=== PATIENT | female | born 1940 | race Two or more races ===

== ENCOUNTER 2020-09-24 11:26 | Inpatient (IN) | payer BC, OTHER ==
[~2020-09-24] VITALS: Ht 154.9 cm; Wt 108.1 kg
[2020-09-24] MEDS ORDERED: ACETAMINOPHEN 325 MG TAB PO ONE (11:45)
[2020-09-24] MEDS ORDERED: SODIUM CHLORIDE 0.9% 500 ML IVB ONE (11:45)
[2020-09-24] MEDS ORDERED: ACETAMINOPHEN 650 MG RECT SUPP PR ONE (12:00)
[2020-09-24 13:05] LABS: Urine Bacteria NONE SEEN /hpf (None Seen); Urine Blood Negative /uL (Negative); Urine Hyaline Cast MOD /lpf (0 - 2); Urine Specific Gravity 1.023 (1.001-1.035); Urine WBC 3 /hpf (0 - 5)
[2020-09-24 13:37] LABS: Basophils % (auto) 0.3 % (0.0-2.0); Eosinophils # (auto) 0 10 ^3/uL (0-0.8); Hemoglobin 10.9 g/dL (12.2-16.2); Lymphocytes # (auto) 1.8 10 ^3/uL (0.4-5.4); Nucleated Red Blood Cells % 0.1 %; Red Cell Distribution Width 15.3 % (11.8-14.3)
[2020-09-24 13:38] LABS: Basophils # (auto) 0 10 ^3/uL (0-0.2); Eosinophils % (auto) 0.1 % (0.0-7.0); Lymphocytes % (auto) 9.9 % (10.0-50.0); Mean Corpuscular Hemoglobin 28.8 pg (28.0-32.0); Mean Corpuscular Hgb Conc. 31.2 g/dL (32.0-36.0); Mean Corpuscular Volume 92.3 fL (80.0-100.0); Monocytes # (auto) 1.4 10 ^3/uL (0-1.3); Monocytes % (auto) 7.7 % (0.0-12.0); Red Blood Cells 3.79 10^6/uL (4.0-5.20); White Blood Cell 18.2 10^3/uL (4.4-10.8)
[2020-09-24 13:50] LABS: Albumin 2.8 g/dL (3.4-5.0); Anion Gap 7 (5-15); Calcium 10.7 mg/dL (8.5-10.1); Carbon Dioxide 20 mmol/L (21-32); Chloride 120 mmol/L (98-107); Glucose 99 mg/dL (74-106); Magnesium 1.9 mg/dL (1.6-2.6); Sodium 147 mmol/L (136-145)
[2020-09-24 13:54] LABS: Alanine Aminotransferase 17 U/L (13-56); Alkaline Phosphatase 59 U/L (45-117); Aspartate Aminotransferase 28 U/L (15-37); Bilirubin, Total 0.4 mg/dL (0.2-1.0); GFR African American 18 mL/min; GFR Non-African American 15 mL/min; Total Protein 7.9 g/dL (6.4-8.2)
[2020-09-24] MEDS ORDERED: AZITHROMYCIN 500MG/ 250ML 250 ML IV ONE (14:00)
[2020-09-24] MEDS ORDERED: methylPREDNISolone SOD SUCC 125 MG/2 ML VL IV ONE (14:00)
[2020-09-24 14:10] LABS: Blood Urea Nitrogen 86 mg/dL (7-18); Potassium 6.2 mmol/L (3.5-5.1)
[2020-09-24] MEDS ORDERED: SODIUM BICARBONATE 8.4 % INJ 50ML VIAL IV ONE (14:30)
[2020-09-24] MEDS ORDERED: CALCIUM GLUC 1,000mg/50ml-NS 50 ML IV ONE (14:30)
[2020-09-24] MEDS ORDERED: cloNIDine HCL 0.1 MG TAB PO ONE (16:00)
[2020-09-24] MEDS ORDERED: DEXTROSE (50%) 50ML SYRG IV ONE (16:45)
[2020-09-24] MEDS ORDERED: NITROGLYCERIN 0.4 MG SL TAB SL PRN (16:45)
[2020-09-24] MEDS ORDERED: SODIUM ZIRCONIUM CYCL 10 GM PAK PO ONE (16:45)
[2020-09-24] MEDS ORDERED: FUROSEMIDE 40 MG/4 ML VIAL IV ONE (16:45)
[2020-09-24] MEDS ORDERED: ALBUTEROL SULF 2.5 MG/0.5ML(0.5%) NEB SOLN NEB ONE (16:45)
[2020-09-24] MEDS ORDERED: InsuLIN REG 1unit/0.01ml Soln (100units/ml) IV ONE (16:45)
[2020-09-24] MEDS ORDERED: MORPHINE SULF INJ 2 MG/ML SYRINGE 1ML IV PRN (16:45)
[2020-09-24] MEDS ORDERED: CALCIUM CHL 100MG/ML 1,000 MG in D5W 5% 100 ML IV ONE (16:45)
[2020-09-24] MEDS ORDERED: LACTATED RINGER'S 1,000 ML IV ONE (17:45)
[2020-09-24] MEDS ORDERED: hydrALAZINE HCL 20 MG/ML VL IV PRN (17:45)
[2020-09-24] MEDS: SODIUM BICARBONATE 8.4% INJ 50ML SYRINGE IV ONE ×2 (18:00→18:50)
[2020-09-24] MEDS: PHENYLEPHRINE IV 250 ML IV SCH (21:45)
[2020-09-24] MEDS: SODIUM ZIRCONIUM CYCL 10 GM PAK PO SCH (22:33)
[2020-09-25] VITALS (59 sets, daily range): BP systolic 81–161; BP diastolic 40–91
[2020-09-25] MEDS ORDERED: DOCUSATE SOD 100 MG CAP PO PRN (01:15)
[2020-09-25] MEDS ORDERED: ONDANSETRON HCL 4 MG/2 ML VIAL IV PRN (01:15)
[2020-09-25] MEDS ORDERED: NITROGLYCERIN 0.4 MG SL TAB SL PRN (01:15)
[2020-09-25] MEDS ORDERED: MORPHINE SULF INJ 2 MG/ML SYRINGE 1ML IV PRN (01:15)
[2020-09-25] MEDS ORDERED: ALUM & MAG HYDROX-SIMETH LIQ(MAALOX) 30 ML PO PRN (01:15)
[2020-09-25] MEDS ORDERED: HYDROcodone-ACET 5/325MG TAB PO PRN (01:15)
[2020-09-25] MEDS ORDERED: SODIUM CHLORIDE 0.9% 1,000 ML IV SCH (01:30)
[2020-09-25] MEDS ORDERED: methylPREDNISolone SOD SUCC 125 MG/2 ML VL IV ONE (01:30)
[2020-09-25] MEDS ORDERED: ZOLEDRONIC ACID 4 MG in SODIUM CHL 0.9% 100 ML IV ONE (01:30)
[2020-09-25] MEDS ORDERED: CALCITONIN 400unit/2ml Vial (200unit/ml) IM ONE (01:30)
[2020-09-25] MEDS ORDERED: DEXTROSE (50%) 50ML SYRG IV PRN (01:30)
[2020-09-25 01:50] LABS: Hematocrit 33.7 % (36.0-46.0); Hemoglobin 10.7 g/dL (12.2-16.2); Mean Corpuscular Hemoglobin 28.5 pg (28.0-32.0); Mean Corpuscular Hgb Conc. 31.7 g/dL (32.0-36.0); Mean Corpuscular Volume 89.7 fL (80.0-100.0); Red Blood Cells 3.76 10^6/uL (4.0-5.20); Red Cell Distribution Width 15.1 % (11.8-14.3); White Blood Cell 20.3 10^3/uL (4.4-10.8)
[2020-09-25 01:52] LABS: Eosinophils % (manual) 0 (0-7); Monocytes % (manual) 0 (0-12)
[2020-09-25 01:53] LABS: Basophils % (manual) 0 (0.0-2.0); Blast Cells 0; Metamyelocytes % 0; Myelocytes % 0; Promyelocytes % 0; Reactive Lymphocytes 0
[2020-09-25 02:07] LABS: Albumin 2.4 g/dL (3.4-5.0); BUN/Creatinine Ratio 27.1; Calcium 10.3 mg/dL (8.5-10.1)
[2020-09-25 02:09] LABS: Potassium 5.6 mmol/L (3.5-5.1)
[2020-09-25 02:10] LABS: Bilirubin, Total 0.4 mg/dL (0.2-1.0); Total Protein 7.4 g/dL (6.4-8.2)
[2020-09-25] MEDS: InsuLIN REG 1unit/0.01ml Soln (100units/ml) SC SCH ×3 (02:29→17:51)
[2020-09-25 03:00] LABS: Band Neutrophils % (manual) 3; Lymphocytes % (manual) 5 (10.0-50.0)
[2020-09-25] MEDS ORDERED: SODIUM ZIRCONIUM CYCL 10 GM PAK PO ONE (03:30)
[2020-09-25] MEDS ORDERED: CALCIUM GLUC 1,000mg/50ml-NS 50 ML IV ONE (03:30)
[2020-09-25] MEDS ORDERED: InsuLIN REG 1unit/0.01ml Soln (100units/ml) IV ONE (03:30)
[2020-09-25] MEDS ORDERED: SODIUM BICARBONATE 8.4% INJ 50ML SYRINGE IV ONE (03:30)
[2020-09-25 04:31] LABS: BUN/Creatinine Ratio 29.6; Calcium 10.4 mg/dL (8.5-10.1); Magnesium 1.6 mg/dL (1.6-2.6); Phosphorus 3.5 mg/dL (2.5-4.90); Potassium 5.4 mmol/L (3.5-5.1)
[2020-09-25] MEDS: FUROSEMIDE 20 MG/2 ML VIAL IV SCH ×2 (04:36→18:03)
[2020-09-25] MEDS: PHENYLEPHRINE IV 250 ML IV SCH ×2 (04:36→14:10)
[2020-09-25] MEDS: SODIUM ZIRCONIUM CYCL 10 GM PAK PO SCH ×3 (04:36→22:11)
[2020-09-25 04:44] LABS: Alcohol, Urine < 3.0 mg/dL (0-10); Amphetamine Screen, Urine NEGATIVE (NEGATIVE); Barbiturate Scree,Urine NEGATIVE (NEGATIVE); Benzodiazephine Screen, Urine NEGATIVE (NEGATIVE); Cannabinoid Screen, Urine NEGATIVE (NEGATIVE); Cocaine Screen, Urine NEGATIVE (NEGATIVE); Phencyclidine Screen, Urine NEGATIVE (NEGATIVE)
[2020-09-25 04:52] LABS: Opiate Scree,Urine POSITIVE (NEGATIVE)
[2020-09-25] MEDS ORDERED: SODIUM CHLOR 0.9% PF (SALINE LOCK) 10ML VIAL/SYR IV SCH (06:00)
[2020-09-25] MEDS ORDERED: methylPREDNISolone SOD SUCC 40 MG/ML VL IV SCH (06:00)
[2020-09-25] MEDS: ACCU-CHEK COMFORT CURVE STRIP VI SCH ×4 (06:36→22:11)
[2020-09-25] MEDS: INSULIN LANTUS (GLARGINE) 1 /0.01ml (100units/ml) SC SCH ×2 (06:37→22:19)
[2020-09-25] MEDS: cefTRIAXone 1GM/50ML D5W 50 ML IV SCH (10:09)
[2020-09-25] MEDS: ENOXAPARIN SOD 30 MG/0.3 ML SYRINGE SC SCH (10:10)
[2020-09-25] MEDS: AZITHROMYCIN 500MG/ 250ML 250 ML IV SCH (11:59)
[2020-09-25] MEDS ORDERED: HYDR-4798 PO (15:03)
[2020-09-25] MEDS ORDERED: METF-929 PO (15:03)
[2020-09-25] MEDS ORDERED: CHOL500035 PO (15:03)
[2020-09-25] MEDS ORDERED: SIMV-8 PO (15:03)
[2020-09-25] MEDS ORDERED: HYDR25TA4 PO (15:03)
[2020-09-25] MEDS ORDERED: CLON0.1T PO (15:03)
[2020-09-25] MEDS ORDERED: TELM80TA PO (15:03)
[2020-09-25] MEDS ORDERED: ASPI-543 PO (15:03)
[2020-09-25] MEDS ORDERED: BACL10TA PO (15:03)
[2020-09-25] MEDS ORDERED: POTA10TA51 PO (15:03)
[2020-09-25] MEDS ORDERED: ROPI12TA2 PO (15:03)
[2020-09-25] MEDS ORDERED: LISI20TA28 PO (15:03)
[2020-09-25] MEDS ORDERED: OMEP-434 PO (15:03)
[2020-09-25] MEDS ORDERED: VALS160T43 PO (15:03)
[2020-09-25] MEDS ORDERED: GLIP10TA9 PO (15:03)
[2020-09-25] MEDS: SODIUM CHLORIDE 0.9% 1,000 ML IV SCH (15:34)
[2020-09-26] MEDS: SODIUM CHLORIDE 0.9% 1,000 ML IV SCH (01:15)
[2020-09-26 05:00] VITALS: BP 119/69
[2020-09-26 06:41] LABS: Basophils # (auto) 0 10 ^3/uL (0-0.2); Basophils % (auto) 0.1 % (0.0-2.0); Eosinophils # (auto) 0 10 ^3/uL (0-0.8); Hematocrit 32.2 % (36.0-46.0); Hemoglobin 10.8 g/dL (12.2-16.2); Lymphocytes # (auto) 0.8 10 ^3/uL (0.4-5.4); Lymphocytes % (auto) 4.3 % (10.0-50.0); Mean Corpuscular Hemoglobin 29.4 pg (28.0-32.0); Mean Corpuscular Hgb Conc. 33.4 g/dL (32.0-36.0); Monocytes # (auto) 0.6 10 ^3/uL (0-1.3); Monocytes % (auto) 3.2 % (0.0-12.0); Neutrophils # (auto) 17.6 10 ^3/uL (1.6-8.6); Neutrophils % (auto) 92.4 % (37.0-80.0); Red Blood Cells 3.66 10^6/uL (4.0-5.20); Red Cell Distribution Width 14.6 % (11.8-14.3)
[2020-09-26] MEDS: ACCU-CHEK COMFORT CURVE STRIP VI SCH ×4 (06:42→21:14)
[2020-09-26] MEDS: FUROSEMIDE 20 MG/2 ML VIAL IV SCH ×2 (06:42→17:44)
[2020-09-26] MEDS: SODIUM ZIRCONIUM CYCL 10 GM PAK PO SCH ×2 (06:42→13:50)
[2020-09-26] MEDS: InsuLIN REG 1unit/0.01ml Soln (100units/ml) SC SCH ×3 (06:44→16:59)
[2020-09-26] MEDS: INSULIN LANTUS (GLARGINE) 1 /0.01ml (100units/ml) SC SCH ×2 (06:44→21:13)
[2020-09-26 06:51] LABS: Potassium 4.4 mmol/L (3.5-5.1)
[2020-09-26 07:01] LABS: Albumin 2.3 g/dL (3.4-5.0); BUN/Creatinine Ratio 36.9; Bilirubin, Total 0.5 mg/dL (0.2-1.0); Calcium 10.3 mg/dL (8.5-10.1)
[2020-09-26 09:00] VITALS: BP 123/69
[2020-09-26] MEDS: cefTRIAXone 1GM/50ML D5W 50 ML IV SCH (09:03)
[2020-09-26] MEDS: SOD CHL 0.45% 1,000 ML IV SCH ×2 (09:11→18:47)
[2020-09-26] MEDS ORDERED: ZOLEDRONIC ACID 4 MG in SODIUM CHL 0.9% 100 ML IV ONE (09:15)
[2020-09-26] MEDS: AZITHROMYCIN 500MG/ 250ML 250 ML IV SCH (10:06)
[2020-09-26] MEDS: ENOXAPARIN SOD 30 MG/0.3 ML SYRINGE SC SCH (10:06)
[2020-09-26 13:00] VITALS: BP 134/76
[2020-09-26 22:00] VITALS: BP 144/80
[2020-09-27] MEDS: SOD CHL 0.45% 1,000 ML IV SCH ×3 (04:57→20:15)
[2020-09-27 05:00] VITALS: BP 135/78
[2020-09-27 05:42] LABS: Basophils # (auto) 0.1 10 ^3/uL (0-0.2); Basophils % (auto) 0.6 % (0.0-2.0); Eosinophils # (auto) 0 10 ^3/uL (0-0.8); Eosinophils % (auto) 0.2 % (0.0-7.0); Hematocrit 32.7 % (36.0-46.0); Hemoglobin 10.9 g/dL (12.2-16.2); Lymphocytes # (auto) 1.2 10 ^3/uL (0.4-5.4); Lymphocytes % (auto) 8.8 % (10.0-50.0); Mean Corpuscular Hemoglobin 28.8 pg (28.0-32.0); Mean Corpuscular Hgb Conc. 33.3 g/dL (32.0-36.0); Mean Corpuscular Volume 86.6 fL (80.0-100.0); Monocytes # (auto) 0.7 10 ^3/uL (0-1.3); Monocytes % (auto) 5.3 % (0.0-12.0); Neutrophils # (auto) 11.6 10 ^3/uL (1.6-8.6); Neutrophils % (auto) 85.1 % (37.0-80.0); Nucleated Red Blood Cells % 0.1 %; Red Blood Cells 3.78 10^6/uL (4.0-5.20); Red Cell Distribution Width 14.4 % (11.8-14.3); White Blood Cell 13.7 10^3/uL (4.4-10.8)
[2020-09-27 05:53] LABS: Albumin 2.4 g/dL (3.4-5.0); Calcium 9.8 mg/dL (8.5-10.1); Potassium 3.4 mmol/L (3.5-5.1)
[2020-09-27] MEDS: ACCU-CHEK COMFORT CURVE STRIP VI SCH ×4 (06:01→21:03)
[2020-09-27] MEDS: FUROSEMIDE 20 MG/2 ML VIAL IV SCH (06:01)
[2020-09-27] MEDS: INSULIN LANTUS (GLARGINE) 1 /0.01ml (100units/ml) SC SCH ×2 (06:03→21:03)
[2020-09-27] MEDS: InsuLIN REG 1unit/0.01ml Soln (100units/ml) SC SCH ×3 (06:03→17:00)
[2020-09-27 06:05] LABS: Bilirubin, Total 0.4 mg/dL (0.2-1.0); Total Protein 6.8 g/dL (6.4-8.2)
[2020-09-27] MEDS: cefTRIAXone 1GM/50ML D5W 50 ML IV SCH (08:59)
[2020-09-27 09:00] VITALS: BP 109/76
[2020-09-27] MEDS: MORPHINE SULF INJ 2 MG/ML SYRINGE 1ML IV PRN (09:28)
[2020-09-27] MEDS: AZITHROMYCIN 500MG/ 250ML 250 ML IV SCH (09:44)
[2020-09-27] MEDS: ENOXAPARIN SOD 30 MG/0.3 ML SYRINGE SC SCH (09:44)
[2020-09-27] MEDS ORDERED: POTASSIUM CHL 20MEQ/100ML 100 ML IV ONE (12:15)
[2020-09-27 13:00] VITALS: BP 139/97
[2020-09-27 17:00] VITALS: BP 140/93
[2020-09-27] MEDS: ACETAMINOPHEN 325 MG TAB PO PRN (17:12)
[2020-09-27] MEDS ORDERED: LATA0.0019 EACHEYE (17:59)
[2020-09-27] MEDS ORDERED: TIMO0.5S66 EACHEYE (17:59)
[2020-09-27] MEDS ORDERED: LORazepam 2MG/ML-1ML VIAL IV PRN (20:15)
[2020-09-27 20:45] LABS: Folate (Folic Acid) 4.55 ng/mL (5.38-24)
[2020-09-27] MEDS: TIMOLOL MAL 0.5% OPTH(EYE) SOL 5ML EACHEYE SCH (21:03)
[2020-09-27] MEDS: LATANOPROST 0.005 % OPTH(EYE) SOL 2.5ML EACHEYE SCH (21:03)
[2020-09-27 22:00] VITALS: BP 136/89
[2020-09-28] MEDS: SOD CHL 0.45% 1,000 ML IV SCH (04:15)
[2020-09-28 05:00] VITALS: BP 126/77
[2020-09-28] MEDS: InsuLIN REG 1unit/0.01ml Soln (100units/ml) SC SCH ×3 (05:10→17:00)
[2020-09-28] MEDS: ACCU-CHEK COMFORT CURVE STRIP VI SCH ×4 (05:11→21:07)
[2020-09-28] MEDS: INSULIN LANTUS (GLARGINE) 1 /0.01ml (100units/ml) SC SCH ×2 (05:41→21:07)
[2020-09-28 06:54] LABS: Basophils # (auto) 0.1 10 ^3/uL (0-0.2); Basophils % (auto) 0.6 % (0.0-2.0); Eosinophils # (auto) 0.1 10 ^3/uL (0-0.8); Eosinophils % (auto) 0.9 % (0.0-7.0); Hematocrit 34.6 % (36.0-46.0); Hemoglobin 11.4 g/dL (12.2-16.2); Lymphocytes # (auto) 1.5 10 ^3/uL (0.4-5.4); Lymphocytes % (auto) 11.6 % (10.0-50.0); Mean Corpuscular Hemoglobin 28.2 pg (28.0-32.0); Mean Corpuscular Volume 85.3 fL (80.0-100.0); Monocytes # (auto) 0.7 10 ^3/uL (0-1.3); Monocytes % (auto) 5.2 % (0.0-12.0); Neutrophils # (auto) 10.8 10 ^3/uL (1.6-8.6); Neutrophils % (auto) 81.7 % (37.0-80.0); Red Blood Cells 4.05 10^6/uL (4.0-5.20); Red Cell Distribution Width 14.1 % (11.8-14.3); White Blood Cell 13.2 10^3/uL (4.4-10.8)
[2020-09-28 07:07] LABS: INR 1.15 (0.9-1.15); Partial Thromboplastin Time 25.1 sec (23.0-31.2)
[2020-09-28 07:20] LABS: Albumin 2.3 g/dL (3.4-5.0); Calcium 9.1 mg/dL (8.5-10.1)
[2020-09-28 07:26] LABS: BUN/Creatinine Ratio 28.6; Bilirubin, Total 0.5 mg/dL (0.2-1.0)
[2020-09-28] MEDS: TIMOLOL MAL 0.5% OPTH(EYE) SOL 5ML EACHEYE SCH ×2 (08:42→21:07)
[2020-09-28] MEDS: cefTRIAXone 1GM/50ML D5W 50 ML IV SCH (08:42)
[2020-09-28] MEDS: ENOXAPARIN SOD 30 MG/0.3 ML SYRINGE SC SCH (08:43)
[2020-09-28 09:00] VITALS: BP 112/75
[2020-09-28] MEDS: AZITHROMYCIN 500MG/ 250ML 250 ML IV SCH (09:26)
[2020-09-28] MEDS: MORPHINE SULF INJ 2 MG/ML SYRINGE 1ML IV PRN (10:10)
[2020-09-28] MEDS: POTASSIUM CHL 20MEQ/100ML 100 ML IV SCH ×2 (11:45→12:45)
[2020-09-28] MEDS: MAGNESIUM SULFATE 1GM/100ML 100 ML IV SCH ×3 (12:45→17:25)
[2020-09-28 13:00] VITALS: BP 129/70
[2020-09-28 17:00] VITALS: BP 96/54
[2020-09-28] MEDS ORDERED: MAGNESIUM SULFATE 1GM/100ML 100 ML IV ONE (17:29)
[2020-09-28] MEDS: POTASSIUM CHLORIDE 20 MEQ in SOD CHL 0.45% 1,000 ML IV SCH ×2 (17:36→19:50)
[2020-09-28] MEDS: LATANOPROST 0.005 % OPTH(EYE) SOL 2.5ML EACHEYE SCH (21:07)
[2020-09-28 22:00] VITALS: BP 103/61
[2020-09-29] MEDS: POTASSIUM CHLORIDE 20 MEQ in SOD CHL 0.45% 1,000 ML IV SCH ×2 (03:52→12:00)
[2020-09-29 05:00] VITALS: BP 126/65
[2020-09-29] MEDS: INSULIN LANTUS (GLARGINE) 1 /0.01ml (100units/ml) SC SCH ×2 (05:49→23:01)
[2020-09-29] MEDS: InsuLIN REG 1unit/0.01ml Soln (100units/ml) SC SCH ×3 (05:50→16:58)
[2020-09-29] MEDS: ACCU-CHEK COMFORT CURVE STRIP VI SCH ×4 (05:50→22:58)
[2020-09-29 05:55] LABS: Basophils # (auto) 0 10 ^3/uL (0-0.2); Basophils % (auto) 0.1 % (0.0-2.0); Eosinophils # (auto) 0.2 10 ^3/uL (0-0.8); Eosinophils % (auto) 1.8 % (0.0-7.0); Hematocrit 34.1 % (36.0-46.0); Hemoglobin 11.2 g/dL (12.2-16.2); Lymphocytes # (auto) 1.3 10 ^3/uL (0.4-5.4); Lymphocytes % (auto) 10.4 % (10.0-50.0); Mean Corpuscular Hemoglobin 28.8 pg (28.0-32.0); Mean Corpuscular Volume 87.2 fL (80.0-100.0); Monocytes # (auto) 0.8 10 ^3/uL (0-1.3); Monocytes % (auto) 6.8 % (0.0-12.0); Neutrophils # (auto) 10.2 10 ^3/uL (1.6-8.6); Neutrophils % (auto) 80.9 % (37.0-80.0); Red Blood Cells 3.91 10^6/uL (4.0-5.20); Red Cell Distribution Width 14.5 % (11.8-14.3); White Blood Cell 12.6 10^3/uL (4.4-10.8)
[2020-09-29 06:40] LABS: Potassium 3.5 mmol/L (3.5-5.1)
[2020-09-29 06:51] LABS: Bilirubin, Total 0.4 mg/dL (0.2-1.0); Calcium 8.2 mg/dL (8.5-10.1); Total Protein 6.3 g/dL (6.4-8.2)
[2020-09-29 08:42] VITALS: BP 129/70
[2020-09-29] MEDS: ENOXAPARIN SOD 30 MG/0.3 ML SYRINGE SC SCH (10:00)
[2020-09-29] MEDS: FOLIC ACID 1 MG in D5W 5% 50 ML INJ SCH ×2 (10:00→16:00)
[2020-09-29] MEDS: ASPirin 81 mg TAB PO SCH (10:00)
[2020-09-29] MEDS: AZITHROMYCIN 500MG/ 250ML 250 ML IV SCH (10:51)
[2020-09-29] MEDS: cefTRIAXone 1GM/50ML D5W 50 ML IV SCH (10:51)
[2020-09-29] MEDS: TIMOLOL MAL 0.5% OPTH(EYE) SOL 5ML EACHEYE SCH ×2 (10:52→22:59)
[2020-09-29 13:00] VITALS: BP 110/64
[2020-09-29] MEDS ORDERED: IOHEXOL 300 MG/ML 100ML BOTTLE IJ ONE (13:59)
[2020-09-29 17:24] VITALS: BP 116/76
[2020-09-29 20:37] LABS: Basophils # (auto) 0 10 ^3/uL (0-0.2); Basophils % (auto) 0.3 % (0.0-2.0); Eosinophils # (auto) 0.3 10 ^3/uL (0-0.8); Eosinophils % (auto) 2.1 % (0.0-7.0); Hematocrit 33.2 % (36.0-46.0); Hemoglobin 10.7 g/dL (12.2-16.2); Lymphocytes # (auto) 1.2 10 ^3/uL (0.4-5.4); Lymphocytes % (auto) 9.2 % (10.0-50.0); Mean Corpuscular Hemoglobin 27.7 pg (28.0-32.0); Mean Corpuscular Hgb Conc. 32.2 g/dL (32.0-36.0); Monocytes # (auto) 0.8 10 ^3/uL (0-1.3); Monocytes % (auto) 5.9 % (0.0-12.0); Neutrophils # (auto) 10.8 10 ^3/uL (1.6-8.6); Neutrophils % (auto) 82.5 % (37.0-80.0); Nucleated Red Blood Cells % 0.1 %; Red Blood Cells 3.86 10^6/uL (4.0-5.20); Red Cell Distribution Width 14.1 % (11.8-14.3); White Blood Cell 13.1 10^3/uL (4.4-10.8)
[2020-09-29 22:00] VITALS: BP 122/58
[2020-09-29] MEDS: LATANOPROST 0.005 % OPTH(EYE) SOL 2.5ML EACHEYE SCH (22:59)
[2020-09-29] MEDS: HEPARIN DRIP/D5W 100UNITS/ML 250 ML IV SCH (23:05)
[2020-09-30] MEDS: POTASSIUM CHLORIDE 20 MEQ in SOD CHL 0.45% 1,000 ML IV SCH ×2 (00:32→07:42)
[2020-09-30 00:59] LABS: INR 1.15 (0.9-1.15); Partial Thromboplastin Time 32.5 sec (23.0-31.2)
[2020-09-30] MEDS ORDERED: HEPARIN SODIUM (PORCINE) 5000 UNITS/ML 1ML VIAL IV ONE (02:45)
[2020-09-30 05:07] VITALS: BP 143/70
[2020-09-30] MEDS: InsuLIN REG 1unit/0.01ml Soln (100units/ml) SC SCH ×3 (06:21→17:00)
[2020-09-30] MEDS: ACCU-CHEK COMFORT CURVE STRIP VI SCH ×4 (06:21→22:36)
[2020-09-30] MEDS: INSULIN LANTUS (GLARGINE) 1 /0.01ml (100units/ml) SC SCH ×2 (06:21→22:00)
[2020-09-30 06:35] LABS: Basophils # (auto) 0.1 10 ^3/uL (0-0.2); Basophils % (auto) 0.7 % (0.0-2.0); Eosinophils # (auto) 0.4 10 ^3/uL (0-0.8); Eosinophils % (auto) 2.9 % (0.0-7.0); Hematocrit 30.5 % (36.0-46.0); Hemoglobin 10.2 g/dL (12.2-16.2); Lymphocytes # (auto) 1.4 10 ^3/uL (0.4-5.4); Lymphocytes % (auto) 11.2 % (10.0-50.0); Mean Corpuscular Hemoglobin 28.6 pg (28.0-32.0); Mean Corpuscular Hgb Conc. 33.5 g/dL (32.0-36.0); Mean Corpuscular Volume 85.6 fL (80.0-100.0); Monocytes # (auto) 0.8 10 ^3/uL (0-1.3); Monocytes % (auto) 6.7 % (0.0-12.0); Neutrophils # (auto) 9.6 10 ^3/uL (1.6-8.6); Neutrophils % (auto) 78.5 % (37.0-80.0); Nucleated Red Blood Cells % 0.1 %; Red Blood Cells 3.57 10^6/uL (4.0-5.20); Red Cell Distribution Width 13.8 % (11.8-14.3); White Blood Cell 12.2 10^3/uL (4.4-10.8)
[2020-09-30 07:11] LABS: INR 1.22 (0.9-1.15)
[2020-09-30 07:48] LABS: Partial Thromboplastin Time > 139.0 sec (23.0-31.2)
[2020-09-30 09:00] VITALS: BP 157/88
[2020-09-30] MEDS: cefTRIAXone 1GM/50ML D5W 50 ML IV SCH (09:00)
[2020-09-30] MEDS: TIMOLOL MAL 0.5% OPTH(EYE) SOL 5ML EACHEYE SCH ×2 (10:00→22:52)
[2020-09-30] MEDS: ASPirin 81 mg TAB PO SCH (10:00)
[2020-09-30] MEDS: ENOXAPARIN SOD 30 MG/0.3 ML SYRINGE SC SCH (10:00)
[2020-09-30] MEDS: AZITHROMYCIN 500MG/ 250ML 250 ML IV SCH (10:00)
[2020-09-30] MEDS: HEPARIN DRIP/D5W 100UNITS/ML 250 ML IV SCH (10:17)
[2020-09-30 13:00] VITALS: BP 146/72
[2020-09-30] MEDS: SOD CHL 0.45% WITH 20MEQ KCL 1,000 ML IV SCH ×2 (15:45→22:52)
[2020-09-30 16:35] VITALS: BP 132/58
[2020-09-30 18:18] LABS: INR 1.24 (0.9-1.15)
[2020-09-30 18:20] LABS: Partial Thromboplastin Time > 139.0 sec (23.0-31.2)
[2020-09-30] MEDS ORDERED: HEPARIN DRIP/D5W 100UNITS/ML 250 ML IV SCH ×2 (19:20→21:00)
[2020-09-30 22:00] VITALS: BP 113/57
[2020-09-30] MEDS: LATANOPROST 0.005 % OPTH(EYE) SOL 2.5ML EACHEYE SCH (22:00)
[2020-10-01 02:38] LABS: Albumin 2.1 g/dL (3.4-5.0); BUN/Creatinine Ratio 10.8; Calcium 8.1 mg/dL (8.5-10.1); Potassium 3.2 mmol/L (3.5-5.1)
[2020-10-01 03:01] LABS: Bilirubin, Total 0.2 mg/dL (0.2-1.0); Phosphorus 1.5 mg/dL (2.5-4.90); Total Protein 6.3 g/dL (6.4-8.2)
[2020-10-01 03:04] LABS: INR 1.24 (0.9-1.15)
[2020-10-01 03:07] LABS: Partial Thromboplastin Time 127.8 sec (23.0-31.2)
[2020-10-01 05:00] VITALS: BP 144/77
[2020-10-01] MEDS: ACCU-CHEK COMFORT CURVE STRIP VI SCH ×4 (06:40→22:03)
[2020-10-01] MEDS: INSULIN LANTUS (GLARGINE) 1 /0.01ml (100units/ml) SC SCH ×2 (06:40→22:03)
[2020-10-01] MEDS: InsuLIN REG 1unit/0.01ml Soln (100units/ml) SC SCH ×3 (06:41→16:50)
[2020-10-01 09:00] VITALS: BP 112/62
[2020-10-01] MEDS: TIMOLOL MAL 0.5% OPTH(EYE) SOL 5ML EACHEYE SCH ×2 (10:00→22:03)
[2020-10-01] MEDS: ENOXAPARIN SOD 30 MG/0.3 ML SYRINGE SC SCH (10:00)
[2020-10-01] MEDS: FOLIC ACID 1 MG in D5W 5% 50 ML INJ SCH (10:00)
[2020-10-01] MEDS: ASPirin 81 mg TAB PO SCH (10:00)
[2020-10-01] MEDS ORDERED: LIDOCAINE VISCOUS 2% 15ML UD PO ONE ×2 (11:00→11:35)
[2020-10-01] MEDS ORDERED: fentaNYL CITRATE 100 MCG/2 ML VL IV ONE (11:00)
[2020-10-01] MEDS ORDERED: MIDAZOLAM HCL 5 MG/ML-1ML VIAL IV ONE (11:00)
[2020-10-01] MEDS ORDERED: LIDOCAINE VISCOUS 2% 15ML UD ONE ×2 (11:01→11:36)
[2020-10-01] MEDS ORDERED: MIDAZOLAM HCL 2MG/2ML 2ml VIAL (1mg/ml) ONE ×2 (11:01→12:38)
[2020-10-01] MEDS ORDERED: fentaNYL CITRATE 100 MCG/2 ML VL ONE ×2 (11:01→12:38)
[2020-10-01] MEDS ORDERED: POTASSIUM PHOSPHATE 44 MEQ in D5W 5% 250 ML IV ONE (11:30)
[2020-10-01] MEDS ORDERED: POTASSIUM CHLORIDE 10 MEQ in SOD CHL 0.45% WITH 20MEQ KCL 1,000 ML IV SCH (11:30)
[2020-10-01] MEDS ORDERED: ceFAZolin 1GM/50ML 100 ML IV ONE (12:35)
[2020-10-01] MEDS ORDERED: ONDANSETRON HCL 4 MG/2 ML VIAL ONE (12:38)
[2020-10-01] MEDS ORDERED: SODIUM CHLORIDE LOCK 10 ML ONE (12:38)
[2020-10-01] MEDS ORDERED: PROPOFOL 10 MG/ML 20 ML IV ONE (12:38)
[2020-10-01] MEDS ORDERED: ceFAZolin 1GM VL ONE (12:42)
[2020-10-01] MEDS ORDERED: ROPIVACAINE 0.5% (5MG/ML) 20ML AMPULE IJ ONE ×2 (12:43→13:41)
[2020-10-01] MEDS ORDERED: LIDOCAINE 2% (LOCAL ANESTH.) PF 5ml SDV ONE (14:11)
[2020-10-01] MEDS ORDERED: MORPHINE SULFATE 4 MG/ML SYR/VIAL IV PRN (14:45)
[2020-10-01] MEDS ORDERED: HYDROmorphone HCL 2 MG/ML VL IV PRN (14:45)
[2020-10-01] MEDS ORDERED: ACCU-CHEK COMFORT CURVE STRIP VI ONE (14:45)
[2020-10-01] MEDS ORDERED: METOCLOPRAMIDE HCL 5MG/ml INJ 2ml VIAL IV PRN (14:45)
[2020-10-01] MEDS: SOD CHL 0.45% IV SCH (16:45)
[2020-10-01] MEDS: POTASSIUM CHLORIDE IV SCH (16:45)
[2020-10-01 17:00] VITALS: BP 134/63
[2020-10-01 22:00] VITALS: BP 123/72
[2020-10-01] MEDS: LATANOPROST 0.005 % OPTH(EYE) SOL 2.5ML EACHEYE SCH (22:03)
[2020-10-01 22:23] LABS: INR 1.21 (0.9-1.15); Partial Thromboplastin Time 26.2 sec (23.0-31.2)
[2020-10-01] MEDS ORDERED: HEPARIN DRIP/D5W 100UNITS/ML 250 ML IV ONE (22:42)
[2020-10-01] MEDS: HEPARIN DRIP/D5W 100UNITS/ML 250 ML IV SCH (23:30)
[2020-10-02] MEDS: SOD CHL 0.45% IV SCH ×2 (01:35→11:03)
[2020-10-02] MEDS: POTASSIUM CHLORIDE IV SCH ×2 (01:35→11:03)
[2020-10-02 05:00] VITALS: BP 150/80
[2020-10-02 06:07] LABS: INR 1.21 (0.9-1.15); Partial Thromboplastin Time 51.7 sec (23.0-31.2)
[2020-10-02] MEDS: InsuLIN REG 1unit/0.01ml Soln (100units/ml) SC SCH ×3 (06:39→17:00)
[2020-10-02] MEDS: INSULIN LANTUS (GLARGINE) 1 /0.01ml (100units/ml) SC SCH ×2 (06:39→22:00)
[2020-10-02] MEDS: ACCU-CHEK COMFORT CURVE STRIP VI SCH ×4 (06:39→22:00)
[2020-10-02 09:00] VITALS: BP 140/66
[2020-10-02] MEDS: ASPirin 81 mg TAB PO SCH (10:00)
[2020-10-02] MEDS: ENOXAPARIN SOD 30 MG/0.3 ML SYRINGE SC SCH (10:00)
[2020-10-02] MEDS: FOLIC ACID 1 MG in D5W 5% 50 ML INJ SCH (10:00)
[2020-10-02] MEDS: TIMOLOL MAL 0.5% OPTH(EYE) SOL 5ML EACHEYE SCH ×2 (10:00→22:33)
[2020-10-02 13:00] VITALS: BP 118/61
[2020-10-02 13:41] LABS: Hematocrit 29.8 % (36.0-46.0); Hemoglobin 9.8 g/dL (12.2-16.2)
[2020-10-02] MEDS ORDERED: SIMETHICONE 80 MG CHEWABLE TABLET PO PRN (13:45)
[2020-10-02 17:00] VITALS: BP 155/81
[2020-10-02] MEDS: ACETAMINOPHEN 325 MG TAB PO PRN (17:28)
[2020-10-02] MEDS: HEPARIN DRIP/D5W 100UNITS/ML 250 ML IV SCH (19:22)
[2020-10-02 22:33] VITALS: BP 150/73
[2020-10-02] MEDS: LATANOPROST 0.005 % OPTH(EYE) SOL 2.5ML EACHEYE SCH (22:33)
[2020-10-03] MEDS: POTASSIUM CHLORIDE IV SCH ×2 (01:20→07:21)
[2020-10-03] MEDS: SOD CHL 0.45% IV SCH ×2 (01:20→07:21)
[2020-10-03 02:51] LABS: INR 1.2 (0.9-1.15); Partial Thromboplastin Time 64.6 sec (23.0-31.2)
[2020-10-03 05:15] VITALS: BP 158/82
[2020-10-03] MEDS: InsuLIN REG 1unit/0.01ml Soln (100units/ml) SC SCH ×3 (06:02→17:00)
[2020-10-03] MEDS: ACCU-CHEK COMFORT CURVE STRIP VI SCH ×4 (06:03→21:41)
[2020-10-03] MEDS: INSULIN LANTUS (GLARGINE) 1 /0.01ml (100units/ml) SC SCH ×2 (06:03→21:43)
[2020-10-03 09:00] VITALS: BP 170/86
[2020-10-03 09:27] LABS: Hematocrit 30.4 % (36.0-46.0); Hemoglobin 9.9 g/dL (12.2-16.2); Mean Corpuscular Hgb Conc. 32.6 g/dL (32.0-36.0); Mean Corpuscular Volume 85.9 fL (80.0-100.0); Red Blood Cells 3.53 10^6/uL (4.0-5.20); Red Cell Distribution Width 14.2 % (11.8-14.3); White Blood Cell 11.6 10^3/uL (4.4-10.8)
[2020-10-03 09:29] LABS: Basophils % (manual) 0 (0.0-2.0); Blast Cells 0; Metamyelocytes % 0; Myelocytes % 0; Promyelocytes % 0; Reactive Lymphocytes 0
[2020-10-03 09:30] LABS: Albumin 2.3 g/dL (3.4-5.0); BUN/Creatinine Ratio 10.5; Calcium 8.1 mg/dL (8.5-10.1)
[2020-10-03 09:31] LABS: INR 1.2 (0.9-1.15); Partial Thromboplastin Time 63.8 sec (23.0-31.2)
[2020-10-03 09:32] LABS: Bilirubin, Total 0.3 mg/dL (0.2-1.0); Phosphorus 1.3 mg/dL (2.5-4.90); Total Protein 6.4 g/dL (6.4-8.2)
[2020-10-03] MEDS ORDERED: APIXABAN 5 MG TAB PO SCH ×2 (10:00→10:06)
[2020-10-03] MEDS: TIMOLOL MAL 0.5% OPTH(EYE) SOL 5ML EACHEYE SCH ×2 (10:13→21:44)
[2020-10-03] MEDS: PANTOPRAZOLE 40 MG/10 ML VIAL INJ IV SCH (10:14)
[2020-10-03] MEDS: ASPirin 81 mg TAB PO SCH (10:14)
[2020-10-03] MEDS: ENOXAPARIN SOD 30 MG/0.3 ML SYRINGE SC SCH (10:14)
[2020-10-03] MEDS: FOLIC ACID 1 MG in D5W 5% 50 ML INJ SCH (10:14)
[2020-10-03 10:15] LABS: Band Neutrophils % (manual) 1; Eosinophils % (manual) 3 (0-7); Lymphocytes % (manual) 16 (10.0-50.0); Monocytes % (manual) 6 (0-12)
[2020-10-03] MEDS ORDERED: POTASSIUM PHOSPHATE 44 MEQ in D5W 5% 250 ML IV ONE ×2 (12:30→18:00)
[2020-10-03 13:00] VITALS: BP 143/74
[2020-10-03] MEDS: MAGNESIUM SULFATE 1GM/100ML 100 ML IV SCH ×4 (14:00→17:00)
[2020-10-03 16:55] VITALS: BP 111/57
[2020-10-03] MEDS: APIXABAN 5 MG TAB PO SCH (21:43)
[2020-10-03] MEDS: LATANOPROST 0.005 % OPTH(EYE) SOL 2.5ML EACHEYE SCH (21:44)
[2020-10-03 22:00] VITALS: BP 141/91
[2020-10-04 05:00] VITALS: BP 125/64
[2020-10-04] MEDS: ACCU-CHEK COMFORT CURVE STRIP VI SCH ×4 (06:03→21:35)
[2020-10-04] MEDS: InsuLIN REG 1unit/0.01ml Soln (100units/ml) SC SCH ×3 (06:04→16:53)
[2020-10-04] MEDS: INSULIN LANTUS (GLARGINE) 1 /0.01ml (100units/ml) SC SCH ×2 (06:06→21:39)
[2020-10-04] MEDS: TIMOLOL MAL 0.5% OPTH(EYE) SOL 5ML EACHEYE SCH ×2 (10:00→21:40)
[2020-10-04] MEDS: FOLIC ACID 1 MG in D5W 5% 50 ML INJ SCH (10:00)
[2020-10-04] MEDS: ASPirin 81 mg TAB PO SCH (10:00)
[2020-10-04] MEDS: APIXABAN 5 MG TAB PO SCH ×2 (10:00→21:40)
[2020-10-04] MEDS: PANTOPRAZOLE 40 MG/10 ML VIAL INJ IV SCH (10:00)
[2020-10-04 15:08] LABS: Phosphorus 2.3 mg/dL (2.5-4.90)
[2020-10-04] MEDS: ACETAMINOPHEN 325 MG TAB PO PRN (16:54)
[2020-10-04] MEDS: MORPHINE SULF INJ 2 MG/ML SYRINGE 1ML IV PRN (18:21)
[2020-10-04] MEDS: LATANOPROST 0.005 % OPTH(EYE) SOL 2.5ML EACHEYE SCH (21:40)
[2020-10-04 22:00] VITALS: BP 115/53
[2020-10-05 05:41] VITALS: BP 125/64
[2020-10-05] MEDS: ACCU-CHEK COMFORT CURVE STRIP VI SCH ×4 (06:23→21:49)
[2020-10-05] MEDS: InsuLIN REG 1unit/0.01ml Soln (100units/ml) SC SCH ×3 (06:23→17:00)
[2020-10-05] MEDS: INSULIN LANTUS (GLARGINE) 1 /0.01ml (100units/ml) SC SCH ×2 (06:25→21:49)
[2020-10-05 09:00] VITALS: BP 115/66
[2020-10-05] MEDS: FOLIC ACID 1 MG in D5W 5% 50 ML INJ SCH (10:00)
[2020-10-05] MEDS: TIMOLOL MAL 0.5% OPTH(EYE) SOL 5ML EACHEYE SCH ×2 (10:00→21:44)
[2020-10-05] MEDS: PANTOPRAZOLE 40 MG/10 ML VIAL INJ IV SCH (12:28)
[2020-10-05] MEDS: ASPirin 81 mg TAB PO SCH (12:28)
[2020-10-05] MEDS: APIXABAN 5 MG TAB PO SCH ×2 (12:28→21:45)
[2020-10-05 13:00] VITALS: BP 94/58
[2020-10-05 16:54] VITALS: BP 136/72
[2020-10-05] MEDS: LATANOPROST 0.005 % OPTH(EYE) SOL 2.5ML EACHEYE SCH (21:45)
[2020-10-06 04:51] VITALS: BP 125/87
[2020-10-06] MEDS: InsuLIN REG 1unit/0.01ml Soln (100units/ml) SC SCH ×3 (06:35→17:39)
[2020-10-06] MEDS: ACCU-CHEK COMFORT CURVE STRIP VI SCH ×4 (06:35→21:43)
[2020-10-06] MEDS: INSULIN LANTUS (GLARGINE) 1 /0.01ml (100units/ml) SC SCH ×2 (06:40→21:44)
[2020-10-06 09:00] VITALS: BP 141/87
[2020-10-06] MEDS: PANTOPRAZOLE 40 MG/10 ML VIAL INJ IV SCH (09:49)
[2020-10-06] MEDS: APIXABAN 5 MG TAB PO SCH ×2 (09:49→21:43)
[2020-10-06] MEDS: FOLIC ACID 1 MG in D5W 5% 50 ML INJ SCH (09:52)
[2020-10-06] MEDS: TIMOLOL MAL 0.5% OPTH(EYE) SOL 5ML EACHEYE SCH ×2 (10:12→21:46)
[2020-10-06 10:22] LABS: Basophils # (auto) 0.1 10 ^3/uL (0-0.2); Nucleated Red Blood Cells % 0.1 %
[2020-10-06 10:23] LABS: Basophils % (auto) 0.8 % (0.0-2.0); Eosinophils # (auto) 0.3 10 ^3/uL (0-0.8); Eosinophils % (auto) 2.2 % (0.0-7.0); Hematocrit 31.6 % (36.0-46.0); Hemoglobin 10.1 g/dL (12.2-16.2); Lymphocytes # (auto) 1.6 10 ^3/uL (0.4-5.4); Lymphocytes % (auto) 13.6 % (10.0-50.0); Mean Corpuscular Hemoglobin 27.8 pg (28.0-32.0); Mean Corpuscular Volume 86.8 fL (80.0-100.0); Monocytes # (auto) 0.8 10 ^3/uL (0-1.3); Monocytes % (auto) 6.2 % (0.0-12.0); Neutrophils # (auto) 9.3 10 ^3/uL (1.6-8.6); Neutrophils % (auto) 77.2 % (37.0-80.0); Red Blood Cells 3.64 10^6/uL (4.0-5.20); Red Cell Distribution Width 14.3 % (11.8-14.3); White Blood Cell 12.1 10^3/uL (4.4-10.8)
[2020-10-06 10:43] LABS: Albumin 2.3 g/dL (3.4-5.0); Calcium 9.1 mg/dL (8.5-10.1)
[2020-10-06 10:47] LABS: BUN/Creatinine Ratio 9.6; Bilirubin, Total 0.3 mg/dL (0.2-1.0); Phosphorus 1.8 mg/dL (2.5-4.90); Total Protein 6.5 g/dL (6.4-8.2)
[2020-10-06 13:00] VITALS: BP 125/66
[2020-10-06 17:00] VITALS: BP 120/73
[2020-10-06] MEDS: ACETAMINOPHEN 325 MG TAB PO PRN (21:46)
[2020-10-06 21:47] VITALS: BP 185/110
[2020-10-06] MEDS: LATANOPROST 0.005 % OPTH(EYE) SOL 2.5ML EACHEYE SCH (21:47)
[2020-10-07 05:30] VITALS: BP 145/82
[2020-10-07] MEDS: ACCU-CHEK COMFORT CURVE STRIP VI SCH ×3 (06:29→17:00)
[2020-10-07] MEDS: INSULIN LANTUS (GLARGINE) 1 /0.01ml (100units/ml) SC SCH (06:29)
[2020-10-07] MEDS: InsuLIN REG 1unit/0.01ml Soln (100units/ml) SC SCH ×3 (06:30→17:00)
[2020-10-07 09:00] VITALS: BP 137/72
[2020-10-07] MEDS: TIMOLOL MAL 0.5% OPTH(EYE) SOL 5ML EACHEYE SCH (09:39)
[2020-10-07] MEDS: APIXABAN 5 MG TAB PO SCH (09:40)
[2020-10-07] MEDS: FOLIC ACID 1 MG in D5W 5% 50 ML INJ SCH (09:40)
[2020-10-07] MEDS: PANTOPRAZOLE 40 MG/10 ML VIAL INJ IV SCH (09:40)
[2020-10-07 13:00] VITALS: BP 165/83
[2020-10-07 17:00] VITALS: BP 156/96
[2020-10-10] MEDS ORDERED: APIXABAN 5 MG TAB PO SCH (22:00)
== END 2020-10-07 20:18 | disposition home health service (06) | DRG 853 ==
LOC: ER 11:26 → EDBD 11:26 → TELE 16:33 → ICU WEST 22:59 → TELE-WESTW 09-25 23:09
PROVIDERS: ADMIT Hospitalist; ATTEND Internal Medicine
PROC: 0QSJ04Z Reposition Right Fibula with Internal Fixation Device, Open Approach (ICD-10-PCS; 2020-10-01)
PROC: 2W3LX1Z Immobilization of Right Lower Extremity using Splint (ICD-10-PCS; 2020-10-01)
PROC: B24BZZ4 Ultrasonography of Heart with Aorta, Transesophageal (ICD-10-PCS; principal; 2020-10-01 13:15)
DX: A41.9 Sepsis, unspecified organism (principal); G93.41 Metabolic encephalopathy; R65.21 Severe sepsis with septic shock; J18.9 Pneumonia, unspecified organism; R53.2 Functional quadriplegia; I26.99 Other pulmonary embolism without acute cor pulmonale; I63.9 Cerebral infarction, unspecified; J96.01 Acute respiratory failure with hypoxia; I50.33 Acute on chronic diastolic (congestive) heart failure; N17.9 Acute kidney failure, unspecified; E87.0 Hyperosmolality and hypernatremia; C90.00 Multiple myeloma not having achieved remission; N18.4 Chronic kidney disease, stage 4 (severe); I13.0 Hypertensive heart and chronic kidney disease with heart failure and stage 1 through stage 4 chronic kidney disease, or unspecified chronic kidney disease; J98.11 Atelectasis; Z68.41 Body mass index [BMI] 40.0-44.9, adult; S91.302A Unspecified open wound, left foot, initial encounter; S91.301A Unspecified open wound, right foot, initial encounter; E83.52 Hypercalcemia; E86.0 Dehydration; E87.5 Hyperkalemia; D64.9 Anemia, unspecified; E11.22 Type 2 diabetes mellitus with diabetic chronic kidney disease; E66.01 Morbid (severe) obesity due to excess calories; F02.80 Dementia in other diseases classified elsewhere, unspecified severity, without behavioral disturbance, psychotic disturbance, mood disturbance, and anxiety; F17.200 Nicotine dependence, unspecified, uncomplicated; I27.20 Pulmonary hypertension, unspecified; S82.831A Other fracture of upper and lower end of right fibula, initial encounter for closed fracture; Z20.822 Contact with and (suspected) exposure to COVID-19; K21.9 Gastro-esophageal reflux disease without esophagitis; H57.11 Ocular pain, right eye; R59.1 Generalized enlarged lymph nodes; R79.82 Elevated C-reactive protein (CRP); Z79.82 Long term (current) use of aspirin; Y93.9 Activity, unspecified; Y99.9 Unspecified external cause status; Z74.01 Bed confinement status; Z82.49 Family history of ischemic heart disease and other diseases of the circulatory system; Z83.3 Family history of diabetes mellitus
CPT/HCPCS: 36415; 36600; 70450; 70551; 71045; 71275; 73562; 73590; 73600; 73630; 74176; 80048; 80053; 80061; 80307; 81001; 82306; 82607; 82746; 82805; 82962; 83036; 83516; 83605; 83735; 83835; 83880; 83970; 84100; 84132; 84443; 84484; 85007; 85014; 85018; 85025; 85027; 85049; 85610; 85652; 85730; 86141; 86225; 86235; 86335; 86850; 86900; 86901; 87040; 87081; 87086; 87426; 93005; 93306; 93312; 93886; 94640; 96361; 96365; 96366; 96368; 96375; 97163; 99152; 99291; C1713; C9113; G0378; J0690; J0696; J1815; J2001; J2250; J2405; J2704; J3480; J3489; J7060

== ENCOUNTER 2020-10-22 18:22 | Inpatient (IN) | payer BC ==
[~2020-10-22] VITALS: Ht 167.6 cm; Wt 99.6 kg
[~2020-10-22 18:22] MED LIST: ASPI-543 PO; BACL10TA PO; CHOL500035 PO; CLON0.1T PO; GLIP10TA9 PO; HYDR-4798 PO; HYDR25TA4 PO; LATA0.0019 EACHEYE; LISI20TA28 PO; METF-929 PO; OMEP-434 PO; POTA10TA51 PO; ROPI12TA2 PO; SIMV-8 PO; TELM80TA PO; TIMO0.5S66 EACHEYE; VALS160T43 PO
[2020-10-22 21:16] LABS: Basophils # (auto) 0 10 ^3/uL (0-0.2); Basophils % (auto) 0.2 % (0.0-2.0); Eosinophils # (auto) 0.1 10 ^3/uL (0-0.8); Eosinophils % (auto) 1.5 % (0.0-7.0); Hematocrit 33.8 % (36.0-46.0); Lymphocytes % (auto) 20.2 % (10.0-50.0); Mean Corpuscular Hemoglobin 28.4 pg (28.0-32.0); Mean Corpuscular Hgb Conc. 32.4 g/dL (32.0-36.0); Mean Corpuscular Volume 87.6 fL (80.0-100.0); Monocytes # (auto) 0.7 10 ^3/uL (0-1.3); Monocytes % (auto) 7.6 % (0.0-12.0); Neutrophils # (auto) 6.9 10 ^3/uL (1.6-8.6); Neutrophils % (auto) 70.5 % (37.0-80.0); Nucleated Red Blood Cells % 0.1 %; Red Blood Cells 3.86 10^6/uL (4.0-5.20); Red Cell Distribution Width 15.2 % (11.8-14.3); White Blood Cell 9.8 10^3/uL (4.4-10.8)
[2020-10-22 21:34] LABS: Albumin 2.6 g/dL (3.4-5.0); Anion Gap 11 (5-15); BUN/Creatinine Ratio 22.2; Blood Urea Nitrogen 40 mg/dL (7-18); Calcium 9.3 mg/dL (8.5-10.1); Carbon Dioxide 22 mmol/L (21-32); Chloride 109 mmol/L (98-107); GFR African American 35 mL/min; GFR Non-African American 29 mL/min; Glucose 86 mg/dL (74-106); Potassium 5.5 mmol/L (3.5-5.1); Sodium 142 mmol/L (136-145)
[2020-10-22 21:39] LABS: Alanine Aminotransferase 13 U/L (13-56); Alkaline Phosphatase 73 U/L (45-117); Aspartate Aminotransferase 17 U/L (15-37); Bilirubin, Total 0.4 mg/dL (0.2-1.0); Total Protein 7.5 g/dL (6.4-8.2)
[2020-10-22 22:10] LABS: Urine Bacteria FEW /hpf (None Seen); Urine Blood Negative /uL (Negative); Urine Mucus FEW (None Seen); Urine WBC 8 /hpf (0 - 5)
[2020-10-23] MEDS ORDERED: ACETAMINOPHEN 325 MG TAB PO PRN (05:45)
[2020-10-23] MEDS ORDERED: SODIUM ZIRCONIUM CYCL 10 GM PAK PO ONE (05:45)
[2020-10-23] MEDS ORDERED: ONDANSETRON HCL 4 MG/2 ML VIAL IV PRN (05:45)
[2020-10-23] MEDS ORDERED: MORPHINE SULFATE INJECTION 2 MG/ML SYRG IV PRN (05:45)
[2020-10-23] MEDS ORDERED: ALBUMIN 25% 50 ML IV ONE (05:45)
[2020-10-23] MEDS ORDERED: NITROGLYCERIN 0.4 MG SL TAB SL PRN (05:45)
[2020-10-23] MEDS ORDERED: DOCUSATE SOD 100 MG CAP PO PRN (05:45)
[2020-10-23] MEDS ORDERED: HEPARIN SODIUM (PORCINE) 5000 UNITS/ML 1ML VIAL SC SCH (10:00)
[2020-10-23] MEDS: MULTIPLE VITAMIN TAB PO SCH (10:21)
[2020-10-23] MEDS: ZINC SULFATE 220mg CAP or TAB PO SCH (10:21)
[2020-10-23] MEDS: ASCORBIC ACID 500 MG TAB PO SCH ×2 (10:21→23:21)
[2020-10-23] MEDS ORDERED: cefTRIAXone 1GM/50ML D5W 50 ML IV ONE (11:30)
[2020-10-23 11:50] LABS: Basophils # (auto) 0.1 10 ^3/uL (0-0.2); Basophils % (auto) 1.2 % (0.0-2.0); Eosinophils # (auto) 0.2 10 ^3/uL (0-0.8); Hematocrit 32.5 % (36.0-46.0); Hemoglobin 10.6 g/dL (12.2-16.2); Lymphocytes # (auto) 1.8 10 ^3/uL (0.4-5.4); Lymphocytes % (auto) 21.5 % (10.0-50.0); Mean Corpuscular Hemoglobin 28.6 pg (28.0-32.0); Mean Corpuscular Hgb Conc. 32.7 g/dL (32.0-36.0); Mean Corpuscular Volume 87.4 fL (80.0-100.0); Monocytes # (auto) 0.6 10 ^3/uL (0-1.3); Monocytes % (auto) 7.4 % (0.0-12.0); Neutrophils # (auto) 5.8 10 ^3/uL (1.6-8.6); Neutrophils % (auto) 67.9 % (37.0-80.0); Red Blood Cells 3.72 10^6/uL (4.0-5.20); Red Cell Distribution Width 15.7 % (11.8-14.3); White Blood Cell 8.5 10^3/uL (4.4-10.8)
[2020-10-23 12:00] LABS: Albumin 2.8 g/dL (3.4-5.0); Calcium 9.9 mg/dL (8.5-10.1); Potassium 4.6 mmol/L (3.5-5.1)
[2020-10-23] MEDS: Glucerna Carbsteady SHAKE Vanilla 8oz PO SCH ×2 (12:00→18:00)
[2020-10-23 12:04] LABS: BUN/Creatinine Ratio 24.2; Bilirubin, Total 0.5 mg/dL (0.2-1.0); INR 1.22 (0.9-1.15); Partial Thromboplastin Time 26.7 sec (23.6-33.0); Total Protein 7.6 g/dL (6.4-8.2)
[2020-10-23] MEDS: FAMOTIDINE (10MG/ML) 2ML VL IV SCH ×2 (13:32→23:21)
[2020-10-23] MEDS: SOD CHL 0.45% 1,000 ML IV SCH ×2 (13:46→19:05)
[2020-10-23 17:00] VITALS: BP 98/56
[2020-10-23 20:00] VITALS: BP 99/55
[2020-10-23 22:00] VITALS: BP 99/55
[2020-10-23] MEDS ORDERED: LORazepam 2MG/ML-1ML VIAL IV PRN (22:30)
[2020-10-24 05:00] VITALS: BP 108/64
[2020-10-24 05:39] LABS: Basophils # (auto) 0.1 10 ^3/uL (0-0.2); Basophils % (auto) 0.9 % (0.0-2.0); Eosinophils # (auto) 0.2 10 ^3/uL (0-0.8); Eosinophils % (auto) 3.3 % (0.0-7.0); Hematocrit 31.1 % (36.0-46.0); Hemoglobin 10.2 g/dL (12.2-16.2); Lymphocytes # (auto) 1.3 10 ^3/uL (0.4-5.4); Lymphocytes % (auto) 19.3 % (10.0-50.0); Mean Corpuscular Hemoglobin 28.7 pg (28.0-32.0); Mean Corpuscular Hgb Conc. 32.9 g/dL (32.0-36.0); Mean Corpuscular Volume 87.2 fL (80.0-100.0); Monocytes # (auto) 0.4 10 ^3/uL (0-1.3); Monocytes % (auto) 6.4 % (0.0-12.0); Neutrophils # (auto) 4.6 10 ^3/uL (1.6-8.6); Neutrophils % (auto) 70.1 % (37.0-80.0); Red Blood Cells 3.56 10^6/uL (4.0-5.20); Red Cell Distribution Width 16.1 % (11.8-14.3); White Blood Cell 6.6 10^3/uL (4.4-10.8)
[2020-10-24 05:57] LABS: Albumin 2.9 g/dL (3.4-5.0); Calcium 9.6 mg/dL (8.5-10.1); Potassium 3.7 mmol/L (3.5-5.1)
[2020-10-24 06:01] LABS: BUN/Creatinine Ratio 24.2; Bilirubin, Total 0.4 mg/dL (0.2-1.0); Total Protein 7.3 g/dL (6.4-8.2)
[2020-10-24] MEDS: Glucerna Carbsteady SHAKE Vanilla 8oz PO SCH ×3 (08:11→16:53)
[2020-10-24] MEDS: cefTRIAXone 1GM/50ML D5W 50 ML IV SCH (08:12)
[2020-10-24] MEDS: FAMOTIDINE (10MG/ML) 2ML VL IV SCH (08:12)
[2020-10-24] MEDS: ZINC SULFATE 220mg CAP or TAB PO SCH (08:12)
[2020-10-24] MEDS: MULTIPLE VITAMIN TAB PO SCH (08:12)
[2020-10-24] MEDS: ASCORBIC ACID 500 MG TAB PO SCH ×2 (08:12→22:25)
[2020-10-24] MEDS: SOD CHL 0.45% 1,000 ML IV SCH ×2 (08:25→16:54)
[2020-10-24 09:00] VITALS: BP 93/62
[2020-10-24] MEDS: APIXABAN 5 MG TAB PO SCH ×2 (10:35→22:24)
[2020-10-24 13:00] VITALS: BP 121/60
[2020-10-24] MEDS ORDERED: cloNIDine HCL 0.1 MG TAB PO PRN (13:30)
[2020-10-24 14:31] LABS: Protein, Urine 111.7 mg/dL (0.0-11.9)
[2020-10-24] MEDS: BACLOFEN 10 MG TAB PO SCH ×2 (15:17→22:25)
[2020-10-24] MEDS: glipiZIDE 5 MG TAB PO SCH (16:53)
[2020-10-24 17:00] VITALS: BP 101/55
[2020-10-24 20:00] VITALS: BP 132/50
[2020-10-24 22:00] VITALS: BP 132/50
[2020-10-24] MEDS ORDERED: DONEPEZIL HYDROCHLORIDE 5 MG TAB PO SCH (22:00)
[2020-10-24] MEDS: TIMOLOL MALEATE 0.25 % OPTH SOL 5ML EACHEYE SCH (22:24)
[2020-10-24] MEDS: LATANOPROST 0.005 % OPTH(EYE) SOL 2.5ML EACHEYE SCH (22:24)
[2020-10-24] MEDS: ATORVASTATIN 20 MG TAB PO SCH (22:25)
[2020-10-25 05:00] VITALS: BP 154/96
[2020-10-25 05:57] LABS: Basophils # (auto) 0 10 ^3/uL (0-0.2); Basophils % (auto) 0.6 % (0.0-2.0); Eosinophils # (auto) 0.2 10 ^3/uL (0-0.8); Eosinophils % (auto) 3.3 % (0.0-7.0); Hematocrit 31.1 % (36.0-46.0); Hemoglobin 10.1 g/dL (12.2-16.2); Lymphocytes # (auto) 1.6 10 ^3/uL (0.4-5.4); Lymphocytes % (auto) 24.3 % (10.0-50.0); Mean Corpuscular Hgb Conc. 32.5 g/dL (32.0-36.0); Mean Corpuscular Volume 86.3 fL (80.0-100.0); Monocytes # (auto) 0.5 10 ^3/uL (0-1.3); Monocytes % (auto) 7.5 % (0.0-12.0); Neutrophils # (auto) 4.3 10 ^3/uL (1.6-8.6); Neutrophils % (auto) 64.3 % (37.0-80.0); Nucleated Red Blood Cells % 0.1 %; Red Cell Distribution Width 15.5 % (11.8-14.3); White Blood Cell 6.7 10^3/uL (4.4-10.8)
[2020-10-25 06:21] LABS: Potassium 3.4 mmol/L (3.5-5.1)
[2020-10-25 06:28] LABS: Albumin 2.6 g/dL (3.4-5.0); BUN/Creatinine Ratio 17.8; Calcium 9.3 mg/dL (8.5-10.1); Magnesium 1.4 mg/dL (1.6-2.6)
[2020-10-25 06:31] LABS: Bilirubin, Total 0.4 mg/dL (0.2-1.0); Phosphorus 2.5 mg/dL (2.5-4.90)
[2020-10-25] MEDS: BACLOFEN 10 MG TAB PO SCH ×3 (06:53→21:12)
[2020-10-25] MEDS: glipiZIDE 5 MG TAB PO SCH ×2 (06:59→18:00)
[2020-10-25 08:00] VITALS: BP 109/54
[2020-10-25] MEDS: Glucerna Carbsteady SHAKE Vanilla 8oz PO SCH ×3 (08:00→18:00)
[2020-10-25 09:10] VITALS: BP 165/70
[2020-10-25] MEDS ORDERED: CHOLECALCIFEROL (VITD3) 2,000 UNIT CAP/TAB PO SCH (10:00)
[2020-10-25] MEDS: TIMOLOL MALEATE 0.25 % OPTH SOL 5ML EACHEYE SCH ×2 (10:00→21:10)
[2020-10-25] MEDS: POTASSIUM CHL 10 Meq TABLET PO SCH (10:00)
[2020-10-25] MEDS: SOD CHL 0.45% 1,000 ML IV SCH (11:05)
[2020-10-25] MEDS ORDERED: POTASSIUM CHL 20 Meq TABLET PO ONE (12:30)
[2020-10-25] MEDS: MULTIPLE VITAMIN TAB PO SCH (12:41)
[2020-10-25] MEDS: cefTRIAXone 1GM/50ML D5W 50 ML IV SCH (12:42)
[2020-10-25] MEDS: APIXABAN 5 MG TAB PO SCH ×2 (12:45→21:11)
[2020-10-25] MEDS: ZINC SULFATE 220mg CAP or TAB PO SCH (12:45)
[2020-10-25] MEDS: PANTOPRAZOLE 40 MG TAB PO SCH (12:46)
[2020-10-25] MEDS: ASCORBIC ACID 500 MG TAB PO SCH ×2 (12:46→21:12)
[2020-10-25] MEDS: HCTZ 25 MG TAB PO SCH (12:48)
[2020-10-25 13:00] VITALS: BP 109/54
[2020-10-25 17:07] VITALS: BP 121/69
[2020-10-25] MEDS: MAGNESIUM SULFATE 1GM/100ML 100 ML IV SCH ×2 (19:54→22:39)
[2020-10-25] MEDS ORDERED: MAGNESIUM SULFATE 1GM/100ML 100 ML IV ONE ×2 (19:58→22:30)
[2020-10-25] MEDS ORDERED: MAGNESIUM SULFATE 1GM/100ML 100 ML IV SCH (20:00)
[2020-10-25] MEDS: LATANOPROST 0.005 % OPTH(EYE) SOL 2.5ML EACHEYE SCH (21:10)
[2020-10-25] MEDS: ATORVASTATIN 20 MG TAB PO SCH (21:12)
[2020-10-25 22:00] VITALS: BP 136/64
[2020-10-26] MEDS ORDERED: MAGNESIUM SULFATE 1GM/100ML 100 ML IV ONE (00:03)
[2020-10-26] MEDS: MAGNESIUM SULFATE 1GM/100ML 100 ML IV SCH (00:05)
[2020-10-26] MEDS: SOD CHL 0.45% 1,000 ML IV SCH ×2 (00:26→11:52)
[2020-10-26 05:00] VITALS: BP 135/96
[2020-10-26] MEDS: BACLOFEN 10 MG TAB PO SCH ×3 (05:14→21:08)
[2020-10-26] MEDS: glipiZIDE 5 MG TAB PO SCH ×2 (06:01→18:00)
[2020-10-26 06:34] LABS: Potassium 3.5 mmol/L (3.5-5.1)
[2020-10-26 06:52] LABS: Albumin 2.8 g/dL (3.4-5.0); BUN/Creatinine Ratio 15.8; Bilirubin, Total 0.4 mg/dL (0.2-1.0); Calcium 10.7 mg/dL (8.5-10.1); Total Protein 7.6 g/dL (6.4-8.2)
[2020-10-26 08:00] VITALS: BP 129/66
[2020-10-26] MEDS: Glucerna Carbsteady SHAKE Vanilla 8oz PO SCH ×3 (08:00→18:00)
[2020-10-26 08:30] VITALS: BP 129/66
[2020-10-26] MEDS: cefTRIAXone 1GM/50ML D5W 50 ML IV SCH (11:48)
[2020-10-26] MEDS: APIXABAN 5 MG TAB PO SCH ×2 (11:48→21:09)
[2020-10-26] MEDS: ZINC SULFATE 220mg CAP or TAB PO SCH (11:48)
[2020-10-26] MEDS: HCTZ 25 MG TAB PO SCH (11:49)
[2020-10-26] MEDS: POTASSIUM CHL 10 Meq TABLET PO SCH (11:49)
[2020-10-26] MEDS: MULTIPLE VITAMIN TAB PO SCH (11:50)
[2020-10-26] MEDS: PANTOPRAZOLE 40 MG TAB PO SCH (11:50)
[2020-10-26] MEDS: ASCORBIC ACID 500 MG TAB PO SCH ×2 (11:52→21:09)
[2020-10-26] MEDS: TIMOLOL MALEATE 0.25 % OPTH SOL 5ML EACHEYE SCH ×2 (11:53→21:20)
[2020-10-26 12:30] VITALS: BP 135/112
[2020-10-26 17:00] VITALS: BP 129/78
[2020-10-26] MEDS: LATANOPROST 0.005 % OPTH(EYE) SOL 2.5ML EACHEYE SCH (21:08)
[2020-10-26] MEDS: ATORVASTATIN 20 MG TAB PO SCH (21:09)
[2020-10-27] MEDS: SOD CHL 0.45% 1,000 ML IV SCH ×2 (03:01→15:25)
[2020-10-27 05:28] VITALS: BP 161/96
[2020-10-27] MEDS: BACLOFEN 10 MG TAB PO SCH ×3 (05:47→21:54)
[2020-10-27] MEDS: glipiZIDE 5 MG TAB PO SCH ×2 (05:47→17:38)
[2020-10-27] MEDS: Glucerna Carbsteady SHAKE Vanilla 8oz PO SCH ×3 (08:00→21:54)
[2020-10-27 09:01] VITALS: BP 102/67
[2020-10-27] MEDS: TIMOLOL MALEATE 0.25 % OPTH SOL 5ML EACHEYE SCH ×2 (10:08→21:54)
[2020-10-27] MEDS: ZINC SULFATE 220mg CAP or TAB PO SCH (10:09)
[2020-10-27] MEDS: APIXABAN 5 MG TAB PO SCH ×2 (10:09→21:54)
[2020-10-27] MEDS: POTASSIUM CHL 10 Meq TABLET PO SCH (10:10)
[2020-10-27] MEDS: MULTIPLE VITAMIN TAB PO SCH (10:11)
[2020-10-27] MEDS: HCTZ 25 MG TAB PO SCH (10:11)
[2020-10-27] MEDS: PANTOPRAZOLE 40 MG TAB PO SCH (10:12)
[2020-10-27] MEDS: ASCORBIC ACID 500 MG TAB PO SCH ×2 (10:12→21:54)
[2020-10-27] MEDS: cefTRIAXone 1GM/50ML D5W 50 ML IV SCH (10:14)
[2020-10-27 13:00] VITALS: BP 121/73
[2020-10-27 16:58] VITALS: BP 108/63
[2020-10-27] MEDS: LATANOPROST 0.005 % OPTH(EYE) SOL 2.5ML EACHEYE SCH (21:54)
[2020-10-27] MEDS: ATORVASTATIN 20 MG TAB PO SCH (21:54)
[2020-10-27 22:00] VITALS: BP 94/68
[2020-10-28] MEDS: SOD CHL 0.45% 1,000 ML IV SCH (02:28)
[2020-10-28 05:00] VITALS: BP 100/60
[2020-10-28] MEDS: glipiZIDE 5 MG TAB PO SCH ×2 (05:31→18:00)
[2020-10-28 06:27] LABS: Potassium 4.1 mmol/L (3.5-5.1)
[2020-10-28 06:35] LABS: Albumin 2.6 g/dL (3.4-5.0); BUN/Creatinine Ratio 10.9; Bilirubin, Total 0.6 mg/dL (0.2-1.0); Calcium 10.1 mg/dL (8.5-10.1); Phosphorus 3.1 mg/dL (2.5-4.90); Total Protein 7.4 g/dL (6.4-8.2); Uric Acid 7.1 mg/dL (2.6-6.0)
[2020-10-28] MEDS: BACLOFEN 10 MG TAB PO SCH ×3 (06:52→22:00)
[2020-10-28] MEDS: Glucerna Carbsteady SHAKE Vanilla 8oz PO SCH ×3 (08:00→18:00)
[2020-10-28 09:00] VITALS: BP 130/80
[2020-10-28] MEDS: cefTRIAXone 1GM/50ML D5W 50 ML IV SCH (10:36)
[2020-10-28] MEDS: TIMOLOL MALEATE 0.25 % OPTH SOL 5ML EACHEYE SCH ×2 (10:36→22:00)
[2020-10-28] MEDS: APIXABAN 5 MG TAB PO SCH ×2 (10:37→22:00)
[2020-10-28] MEDS: ZINC SULFATE 220mg CAP or TAB PO SCH (10:37)
[2020-10-28] MEDS: POTASSIUM CHL 10 Meq TABLET PO SCH (10:37)
[2020-10-28] MEDS: ASCORBIC ACID 500 MG TAB PO SCH ×2 (10:38→22:00)
[2020-10-28] MEDS: MULTIPLE VITAMIN TAB PO SCH (10:38)
[2020-10-28] MEDS: PANTOPRAZOLE 40 MG TAB PO SCH (10:38)
[2020-10-28] MEDS: HYDROcodone-ACET 5/325MG TAB PO PRN (10:44)
[2020-10-28 13:00] VITALS: BP 89/56
[2020-10-28 17:00] VITALS: BP 78/40
[2020-10-28] MEDS ORDERED: diphenhdrAMINE HCL 50 MG/1 ML VL IV PRN (19:00)
[2020-10-28 20:00] VITALS: BP 92/47
[2020-10-28 22:00] VITALS: BP 151/106
[2020-10-28] MEDS: LATANOPROST 0.005 % OPTH(EYE) SOL 2.5ML EACHEYE SCH (22:00)
[2020-10-28] MEDS: ATORVASTATIN 20 MG TAB PO SCH (22:00)
[2020-10-29] MEDS: SOD CHL 0.45% 1,000 ML IV SCH ×2 (00:07→08:25)
[2020-10-29 05:00] VITALS: BP 112/62
[2020-10-29] MEDS: BACLOFEN 10 MG TAB PO SCH ×2 (05:56→14:03)
[2020-10-29] MEDS: glipiZIDE 5 MG TAB PO SCH (05:57)
[2020-10-29 06:08] LABS: Basophils # (auto) 0.1 10 ^3/uL (0-0.2); Basophils % (auto) 0.7 % (0.0-2.0); Eosinophils # (auto) 0.2 10 ^3/uL (0-0.8); Eosinophils % (auto) 3.3 % (0.0-7.0); Hematocrit 27.7 % (36.0-46.0); Hemoglobin 9.2 g/dL (12.2-16.2); Lymphocytes # (auto) 1.8 10 ^3/uL (0.4-5.4); Lymphocytes % (auto) 25.2 % (10.0-50.0); Mean Corpuscular Hemoglobin 28.9 pg (28.0-32.0); Mean Corpuscular Hgb Conc. 33.1 g/dL (32.0-36.0); Mean Corpuscular Volume 87.2 fL (80.0-100.0); Monocytes # (auto) 0.6 10 ^3/uL (0-1.3); Monocytes % (auto) 8.5 % (0.0-12.0); Neutrophils # (auto) 4.4 10 ^3/uL (1.6-8.6); Neutrophils % (auto) 62.3 % (37.0-80.0); Nucleated Red Blood Cells % 0.1 %; Red Blood Cells 3.18 10^6/uL (4.0-5.20); Red Cell Distribution Width 15.4 % (11.8-14.3)
[2020-10-29 06:46] LABS: Potassium 3.2 mmol/L (3.5-5.1)
[2020-10-29 06:54] LABS: BUN/Creatinine Ratio 13.3; Calcium 9.6 mg/dL (8.5-10.1)
[2020-10-29 08:00] VITALS: BP 93/50
[2020-10-29] MEDS: Glucerna Carbsteady SHAKE Vanilla 8oz PO SCH ×2 (08:00→12:08)
[2020-10-29] MEDS: HYDROcodone-ACET 5/325MG TAB PO PRN ×2 (08:35→17:10)
[2020-10-29] MEDS: cefTRIAXone 1GM/50ML D5W 50 ML IV SCH (10:44)
[2020-10-29] MEDS: APIXABAN 5 MG TAB PO SCH (10:45)
[2020-10-29] MEDS: ZINC SULFATE 220mg CAP or TAB PO SCH (10:45)
[2020-10-29] MEDS: TIMOLOL MALEATE 0.25 % OPTH SOL 5ML EACHEYE SCH (10:45)
[2020-10-29] MEDS: POTASSIUM CHL 10 Meq TABLET PO SCH (10:46)
[2020-10-29] MEDS: MULTIPLE VITAMIN TAB PO SCH (10:46)
[2020-10-29] MEDS: ASCORBIC ACID 500 MG TAB PO SCH (10:47)
[2020-10-29] MEDS: PANTOPRAZOLE 40 MG TAB PO SCH (10:47)
[2020-10-29 12:00] VITALS: BP 119/63
== END 2020-10-29 18:05 | disposition hospice, home (50) | DRG 871 ==
LOC: ER 18:22 → EDBD 18:22 → TELE 10-23 05:44 → TELE-WESTW 10-23 13:04
PROVIDERS: ADMIT Nurse Practitioner Family; ATTEND Internal Medicine
PROC: 05HY33Z Insertion of Infusion Device into Upper Vein, Percutaneous Approach (ICD-10-PCS; principal; 2020-10-23)
DX: A41.9 Sepsis, unspecified organism (principal); G93.41 Metabolic encephalopathy; N17.0 Acute kidney failure with tubular necrosis; J18.9 Pneumonia, unspecified organism; E44.0 Moderate protein-calorie malnutrition; N39.0 Urinary tract infection, site not specified; N18.4 Chronic kidney disease, stage 4 (severe); Z20.822 Contact with and (suspected) exposure to COVID-19; D63.1 Anemia in chronic kidney disease; Z51.5 Encounter for palliative care; E87.5 Hyperkalemia; E66.01 Morbid (severe) obesity due to excess calories; J45.909 Unspecified asthma, uncomplicated; K21.9 Gastro-esophageal reflux disease without esophagitis; I12.9 Hypertensive chronic kidney disease with stage 1 through stage 4 chronic kidney disease, or unspecified chronic kidney disease; F03.90 Unspecified dementia, unspecified severity, without behavioral disturbance, psychotic disturbance, mood disturbance, and anxiety; E78.00 Pure hypercholesterolemia, unspecified; E78.5 Hyperlipidemia, unspecified; E11.22 Type 2 diabetes mellitus with diabetic chronic kidney disease; H40.9 Unspecified glaucoma; Z86.73 Personal history of transient ischemic attack (TIA), and cerebral infarction without residual deficits; Z87.440 Personal history of urinary (tract) infections; Z68.35 Body mass index [BMI] 35.0-35.9, adult; Z79.01 Long term (current) use of anticoagulants; Z86.711 Personal history of pulmonary embolism; Z79.84 Long term (current) use of oral hypoglycemic drugs; Z79.899 Other long term (current) drug therapy; Z82.49 Family history of ischemic heart disease and other diseases of the circulatory system; Z83.3 Family history of diabetes mellitus
CPT/HCPCS: 36415; 70450; 71045; 76775; 80048; 80053; 81001; 82306; 82570; 82962; 83036; 83735; 83970; 84100; 84156; 84300; 84443; 84484; 84550; 85025; 85610; 85730; 87081; 87086; 87088; 87426; 93005; 95819; 96365; 97530; A4565; G0378; J0696; J3490

== ENCOUNTER 2020-11-14 21:32 | Inpatient (IN) | payer BC ==
[~2020-11-14] VITALS: Ht 157.5 cm; Wt 113.4 kg
[~2020-11-14 21:32] MED LIST changes: -BACL10TA PO; -HYDR25TA4 PO
[2020-11-15] MEDS ORDERED: CIPROFLOXACIN 400MG/200ML 200 ML IV ONE (00:15)
[2020-11-15 01:39] LABS: INR 1.16 (0.9-1.15); Partial Thromboplastin Time 26.9 sec (23.6-33.0)
[2020-11-15 01:40] LABS: Basophils # (auto) 0.1 10 ^3/uL (0-0.2); Basophils % (auto) 0.7 % (0.0-2.0); Eosinophils # (auto) 0.1 10 ^3/uL (0-0.8); Eosinophils % (auto) 0.7 % (0.0-7.0); Hematocrit 29.6 % (36.0-46.0); Hemoglobin 9.6 g/dL (12.2-16.2); Lymphocytes # (auto) 1.4 10 ^3/uL (0.4-5.4); Lymphocytes % (auto) 13.9 % (10.0-50.0); Mean Corpuscular Hemoglobin 27.9 pg (28.0-32.0); Mean Corpuscular Hgb Conc. 32.5 g/dL (32.0-36.0); Monocytes # (auto) 0.7 10 ^3/uL (0-1.3); Monocytes % (auto) 7.2 % (0.0-12.0); Neutrophils # (auto) 7.6 10 ^3/uL (1.6-8.6); Neutrophils % (auto) 77.5 % (37.0-80.0); Nucleated Red Blood Cells % 0.1 %; Red Blood Cells 3.44 10^6/uL (4.0-5.20); Red Cell Distribution Width 15.4 % (11.8-14.3); White Blood Cell 9.8 10^3/uL (4.4-10.8)
[2020-11-15] MEDS ORDERED: SODIUM CHLORIDE 0.9% 2,000 ML IV ONE (03:45)
[2020-11-15 04:51] LABS: Albumin 2.3 g/dL (3.4-5.0); Anion Gap 6 (5-15); Blood Urea Nitrogen 15 mg/dL (7-18); Calcium 9.2 mg/dL (8.5-10.1); Carbon Dioxide 28 mmol/L (21-32); Chloride 106 mmol/L (98-107); Glucose 65 mg/dL (74-106); Potassium 3.6 mmol/L (3.5-5.1); Sodium 140 mmol/L (136-145)
[2020-11-15 04:58] LABS: Alanine Aminotransferase 15 U/L (13-56); Alkaline Phosphatase 68 U/L (45-117); Aspartate Aminotransferase 20 U/L (15-37); BUN/Creatinine Ratio 12.2; Bilirubin, Total 0.2 mg/dL (0.2-1.0); GFR African American 54 mL/min; GFR Non-African American 45 mL/min; Total Protein 6.8 g/dL (6.4-8.2)
[2020-11-15 05:26] LABS: Urine Bacteria MANY /hpf (None Seen); Urine Blood 2+ /uL (Negative); Urine Budding Yeast MODERATE /hpf (None Seen); Urine Hyaline Cast MANY /lpf (0 - 2); Urine Mucus FEW (None Seen); Urine Specific Gravity 1.019 (1.001-1.035); Urine WBC 508 /hpf (0 - 5); Urine WBC Clumps PRESENT /hpf (None Seen)
[2020-11-15] MEDS ORDERED: DEXTROSE 10% 1,000 ML IV SCH (05:45)
[2020-11-15] MEDS ORDERED: MORPHINE SULFATE INJECTION 2 MG/ML SYRG IV PRN ×2 (05:45)
[2020-11-15] MEDS ORDERED: NITROGLYCERIN 0.4 MG SL TAB SL PRN (05:45)
[2020-11-15] MEDS ORDERED: DEXTROSE (50%) 50ML SYRG IV PRN ×2 (05:45→15:15)
[2020-11-15] MEDS ORDERED: ONDANSETRON HCL 4 MG/2 ML VIAL IV PRN (05:45)
[2020-11-15] MEDS ORDERED: ACCU-CHEK COMFORT CURVE STRIP VI SCH ×2 (06:00→12:00)
[2020-11-15] MEDS: cloNIDine HCL 0.1 MG TAB PO SCH ×2 (06:20→15:18)
[2020-11-15] MEDS: HCTZ 25 MG TAB PO SCH (08:34)
[2020-11-15] MEDS: POTASSIUM CHLORIDE 8 MEQ TAB PO SCH (08:38)
[2020-11-15] MEDS: TIMOLOL MAL 0.5% OPTH(EYE) SOL 5ML EACHEYE SCH ×2 (08:38→22:57)
[2020-11-15] MEDS: ASPirin-EC 81 mg tab PO SCH (08:38)
[2020-11-15] MEDS ORDERED: LISINOPRIL 20 MG TAB PO SCH (10:00)
[2020-11-15] MEDS ORDERED: LOSARTAN POTASSIUM 50 MG TAB PO SCH (10:00)
[2020-11-15] MEDS: ROPINIROLE PO SCH (15:17)
[2020-11-15] MEDS ORDERED: cloNIDine HCL 0.1 MG TAB PO PRN (17:00)
[2020-11-15] MEDS: InsuLIN REG 1unit/0.01ml Soln (100units/ml) SC SCH ×2 (17:41→22:00)
[2020-11-15] MEDS: ACCU-CHEK COMFORT CURVE STRIP VI SCH ×2 (17:49→22:00)
[2020-11-15] MEDS: LATANOPROST 0.005 % OPTH(EYE) SOL 2.5ML EACHEYE SCH (19:59)
[2020-11-15] MEDS: ATORVASTATIN 20 MG TAB PO SCH (22:58)
[2020-11-16 00:12] VITALS: BP 118/63
[2020-11-16] MEDS ORDERED: HYDR25TA5 PO (01:46)
[2020-11-16] MEDS ORDERED: AMLO-496 PO (01:46)
[2020-11-16 04:58] VITALS: BP 127/63
[2020-11-16 06:16] LABS: Basophils # (auto) 0 10 ^3/uL (0-0.2); Basophils % (auto) 0.4 % (0.0-2.0); Eosinophils # (auto) 0.2 10 ^3/uL (0-0.8); Hematocrit 26.1 % (36.0-46.0); Hemoglobin 8.8 g/dL (12.2-16.2); Lymphocytes # (auto) 1.8 10 ^3/uL (0.4-5.4); Lymphocytes % (auto) 20.5 % (10.0-50.0); Mean Corpuscular Hemoglobin 28.7 pg (28.0-32.0); Mean Corpuscular Hgb Conc. 33.7 g/dL (32.0-36.0); Mean Corpuscular Volume 85.2 fL (80.0-100.0); Monocytes # (auto) 0.8 10 ^3/uL (0-1.3); Monocytes % (auto) 9.2 % (0.0-12.0); Neutrophils % (auto) 67.9 % (37.0-80.0); Nucleated Red Blood Cells % 0.1 %; Red Blood Cells 3.06 10^6/uL (4.0-5.20); Red Cell Distribution Width 15.2 % (11.8-14.3); White Blood Cell 8.8 10^3/uL (4.4-10.8)
[2020-11-16] MEDS ORDERED: ENOXAPARIN SOD 100 MG/1 ML SYRINGE SC SCH (06:30)
[2020-11-16] MEDS: ACCU-CHEK COMFORT CURVE STRIP VI SCH ×4 (06:35→21:44)
[2020-11-16 06:41] LABS: Potassium 3.7 mmol/L (3.5-5.1)
[2020-11-16] MEDS: InsuLIN REG 1unit/0.01ml Soln (100units/ml) SC SCH ×4 (06:47→21:44)
[2020-11-16] MEDS ORDERED: DEXTROSE (50%) 50ML SYRG IV PRN (07:00)
[2020-11-16] MEDS ORDERED: ACCU-CHEK COMFORT CURVE STRIP VI SCH (07:00)
[2020-11-16] MEDS ORDERED: InsuLIN REG 1unit/0.01ml Soln (100units/ml) SC SCH (07:00)
[2020-11-16 07:17] LABS: Albumin 1.9 g/dL (3.4-5.0); BUN/Creatinine Ratio 13.9; Bilirubin, Total 0.4 mg/dL (0.2-1.0); Total Protein 5.7 g/dL (6.4-8.2)
[2020-11-16 09:00] VITALS: BP 124/75
[2020-11-16] MEDS: cefTRIAXone 1GM/50ML D5W 50 ML IV SCH (09:00)
[2020-11-16] MEDS: ROPINIROLE PO SCH (09:39)
[2020-11-16] MEDS: POTASSIUM CHLORIDE 8 MEQ TAB PO SCH (09:39)
[2020-11-16] MEDS: TIMOLOL MAL 0.5% OPTH(EYE) SOL 5ML EACHEYE SCH ×3 (09:39→22:05)
[2020-11-16] MEDS: HCTZ 25 MG TAB PO SCH (09:39)
[2020-11-16] MEDS: ASPirin-EC 81 mg tab PO SCH (09:39)
[2020-11-16 13:00] VITALS: BP 129/82
[2020-11-16 17:00] VITALS: BP 106/41
[2020-11-16] MEDS: ENOXAPARIN SOD 120 MG/0.8 ML SYRINGE SC SCH (18:11)
[2020-11-16] MEDS: LATANOPROST 0.005 % OPTH(EYE) SOL 2.5ML EACHEYE SCH (18:11)
[2020-11-16] MEDS: ATORVASTATIN 20 MG TAB PO SCH (21:51)
[2020-11-16 22:00] VITALS: BP 125/77
[2020-11-17 05:00] VITALS: BP 138/63
[2020-11-17 05:33] LABS: Basophils # (auto) 0 10 ^3/uL (0-0.2); Basophils % (auto) 0.4 % (0.0-2.0); Eosinophils # (auto) 0.1 10 ^3/uL (0-0.8); Eosinophils % (auto) 1.5 % (0.0-7.0); Hematocrit 27.1 % (36.0-46.0); Hemoglobin 9.1 g/dL (12.2-16.2); Lymphocytes # (auto) 2.1 10 ^3/uL (0.4-5.4); Lymphocytes % (auto) 22.1 % (10.0-50.0); Mean Corpuscular Hemoglobin 28.2 pg (28.0-32.0); Mean Corpuscular Hgb Conc. 33.6 g/dL (32.0-36.0); Monocytes # (auto) 0.7 10 ^3/uL (0-1.3); Monocytes % (auto) 7.1 % (0.0-12.0); Neutrophils # (auto) 6.6 10 ^3/uL (1.6-8.6); Neutrophils % (auto) 68.9 % (37.0-80.0); Nucleated Red Blood Cells % 0.1 %; Red Blood Cells 3.22 10^6/uL (4.0-5.20); Red Cell Distribution Width 15.3 % (11.8-14.3); White Blood Cell 9.7 10^3/uL (4.4-10.8)
[2020-11-17] MEDS: ENOXAPARIN SOD 120 MG/0.8 ML SYRINGE SC SCH ×2 (06:03→18:01)
[2020-11-17] MEDS: ACCU-CHEK COMFORT CURVE STRIP VI SCH ×3 (06:04→16:54)
[2020-11-17] MEDS: InsuLIN REG 1unit/0.01ml Soln (100units/ml) SC SCH ×3 (06:05→16:54)
[2020-11-17 06:19] LABS: Potassium 3.7 mmol/L (3.5-5.1)
[2020-11-17 06:26] LABS: BUN/Creatinine Ratio 13.9; Bilirubin, Total 0.4 mg/dL (0.2-1.0); Calcium 9.2 mg/dL (8.5-10.1)
[2020-11-17 09:00] VITALS: BP 109/70
[2020-11-17] MEDS: TIMOLOL MAL 0.5% OPTH(EYE) SOL 5ML EACHEYE SCH (09:07)
[2020-11-17] MEDS: ROPINIROLE PO SCH (09:07)
[2020-11-17] MEDS: cefTRIAXone 1GM/50ML D5W 50 ML IV SCH (09:07)
[2020-11-17] MEDS: POTASSIUM CHLORIDE 8 MEQ TAB PO SCH (09:50)
[2020-11-17] MEDS: HCTZ 25 MG TAB PO SCH (09:50)
[2020-11-17] MEDS: ASPirin-EC 81 mg tab PO SCH (09:50)
[2020-11-17 13:00] VITALS: BP 129/93
[2020-11-17 16:43] VITALS: BP 137/86
[2020-11-17] MEDS: LATANOPROST 0.005 % OPTH(EYE) SOL 2.5ML EACHEYE SCH (18:01)
== END 2020-11-17 19:15 | disposition hospice, inpatient (51) | DRG 637 ==
LOC: EDBD 21:32 → ER 21:35 → TELE 11-15 05:37 → TELE-WESTW 11-15 23:15
PROVIDERS: ADMIT Internal Medicine; ATTEND Internal Medicine
DX: E11.649 Type 2 diabetes mellitus with hypoglycemia without coma (principal); J96.01 Acute respiratory failure with hypoxia; J18.9 Pneumonia, unspecified organism; G93.41 Metabolic encephalopathy; I13.0 Hypertensive heart and chronic kidney disease with heart failure and stage 1 through stage 4 chronic kidney disease, or unspecified chronic kidney disease; J98.11 Atelectasis; N39.0 Urinary tract infection, site not specified; F03.90 Unspecified dementia, unspecified severity, without behavioral disturbance, psychotic disturbance, mood disturbance, and anxiety; I50.9 Heart failure, unspecified; E78.5 Hyperlipidemia, unspecified; E11.22 Type 2 diabetes mellitus with diabetic chronic kidney disease; I25.10 Atherosclerotic heart disease of native coronary artery without angina pectoris; K21.9 Gastro-esophageal reflux disease without esophagitis; N18.9 Chronic kidney disease, unspecified; Z20.822 Contact with and (suspected) exposure to COVID-19; Z79.4 Long term (current) use of insulin; Z79.899 Other long term (current) drug therapy; Z86.711 Personal history of pulmonary embolism; Z86.73 Personal history of transient ischemic attack (TIA), and cerebral infarction without residual deficits; Z87.440 Personal history of urinary (tract) infections
CPT/HCPCS: 36415; 70450; 71045; 71250; 73620; 80053; 81001; 82962; 84484; 85025; 85610; 85730; 87081; 87426; 87493; 93005; 96361; 96365; 99291; G0378; J0696; J1815

== ENCOUNTER 2020-12-15 18:42 | Emergency (ER) | payer BC ==
[~2020-12-15] VITALS: Ht 147.3 cm; Wt 90.7 kg
[~2020-12-15 18:42] MED LIST changes: +AMLO-496 PO; -GLIP10TA9 PO; +HYDR25TA5 PO
[2020-12-15 19:44] LABS: Basophils # (auto) 0 10 ^3/uL (0-0.2); Basophils % (auto) 0.6 % (0.0-2.0); Eosinophils # (auto) 0.3 10 ^3/uL (0-0.8); Eosinophils % (auto) 3.7 % (0.0-7.0); Hematocrit 29.5 % (36.0-46.0); Hemoglobin 9.4 g/dL (12.2-16.2); Lymphocytes # (auto) 1.8 10 ^3/uL (0.4-5.4); Lymphocytes % (auto) 22.3 % (10.0-50.0); Mean Corpuscular Hemoglobin 27.7 pg (28.0-32.0); Mean Corpuscular Hgb Conc. 31.7 g/dL (32.0-36.0); Mean Corpuscular Volume 87.2 fL (80.0-100.0); Monocytes # (auto) 0.5 10 ^3/uL (0-1.3); Monocytes % (auto) 6.9 % (0.0-12.0); Neutrophils # (auto) 5.3 10 ^3/uL (1.6-8.6); Neutrophils % (auto) 66.5 % (37.0-80.0); Red Blood Cells 3.39 10^6/uL (4.0-5.20); Red Cell Distribution Width 17.8 % (11.8-14.3); White Blood Cell 7.9 10^3/uL (4.4-10.8)
[2020-12-15 19:51] LABS: Albumin 2.3 g/dL (3.4-5.0); Calcium 9.5 mg/dL (8.5-10.1); Potassium 5.3 mmol/L (3.5-5.1)
[2020-12-15 19:55] LABS: BUN/Creatinine Ratio 10.1; Bilirubin, Total 0.2 mg/dL (0.2-1.0)
[2020-12-15] MEDS ORDERED: SODIUM CHLORIDE 0.9% 1,000 ML IV ONE (23:15)
[2020-12-16 12:00] VITALS: BP 108/75
== END 2020-12-16 12:27 | disposition home or self-care (01) ==
LOC: EDBD 18:42 → ER 18:48
DX: K59.00 Constipation, unspecified (principal); I12.9 Hypertensive chronic kidney disease with stage 1 through stage 4 chronic kidney disease, or unspecified chronic kidney disease; E11.22 Type 2 diabetes mellitus with diabetic chronic kidney disease; N18.9 Chronic kidney disease, unspecified; E78.5 Hyperlipidemia, unspecified; Z79.899 Other long term (current) drug therapy
CPT/HCPCS: 36415; 74176; 80053; 85025; 96360; 96361; 99285; J7030

== ENCOUNTER 2021-01-09 11:04 | Inpatient (IN) | payer BC, OTHER ==
[~2021-01-09] VITALS: Ht 147.3 cm; Wt 92.3 kg
[2021-01-09 17:37] LABS: Basophils # (auto) 0.1 10 ^3/uL (0-0.2); Basophils % (auto) 0.8 % (0.0-2.0); Eosinophils # (auto) 0.2 10 ^3/uL (0-0.8); Eosinophils % (auto) 1.4 % (0.0-7.0); Hemoglobin 10.9 g/dL (12.2-16.2); Lymphocytes % (auto) 25.3 % (10.0-50.0); Mean Corpuscular Hemoglobin 28.7 pg (28.0-32.0); Mean Corpuscular Hgb Conc. 32.1 g/dL (32.0-36.0); Mean Corpuscular Volume 89.5 fL (80.0-100.0); Monocytes # (auto) 0.7 10 ^3/uL (0-1.3); Monocytes % (auto) 5.5 % (0.0-12.0); Neutrophils # (auto) 7.9 10 ^3/uL (1.6-8.6); Nucleated Red Blood Cells % 0.1 %; Red Cell Distribution Width 17.6 % (11.8-14.3); White Blood Cell 11.8 10^3/uL (4.4-10.8)
[2021-01-09 17:39] LABS: Albumin 2.8 g/dL (3.4-5.0); Anion Gap 6 (5-15); Blood Urea Nitrogen 8 mg/dL (7-18); Carbon Dioxide 24 mmol/L (21-32); Chloride 109 mmol/L (98-107); Glucose 102 mg/dL (74-106); Potassium 3.7 mmol/L (3.5-5.1); Sodium 139 mmol/L (136-145)
[2021-01-09 17:44] LABS: Alanine Aminotransferase 14 U/L (13-56); Alkaline Phosphatase 66 U/L (45-117); Aspartate Aminotransferase 17 U/L (15-37); BUN/Creatinine Ratio 10.3; Bilirubin, Total 0.4 mg/dL (0.2-1.0); GFR African American 92 mL/min; GFR Non-African American 76 mL/min; Total Protein 6.9 g/dL (6.4-8.2)
[2021-01-09] MEDS ORDERED: ONDANSETRON HCL 4 MG/2 ML VIAL IV PRN (21:15)
[2021-01-09] MEDS ORDERED: HYDROcodone-ACET 5/325MG TAB PO PRN (21:15)
[2021-01-09] MEDS ORDERED: ACETAMINOPHEN 325 MG TAB PO PRN (21:15)
[2021-01-09] MEDS ORDERED: DOCUSATE SOD 100 MG CAP PO PRN (21:15)
[2021-01-09] MEDS ORDERED: DEXTROSE (50%) 50ML SYRG IV PRN (21:15)
[2021-01-09] MEDS ORDERED: ALBUMIN 25% 50 ML IV ONE (21:30)
[2021-01-09] MEDS ORDERED: SOD CHL 0.45% 1,000 ML IV ONE (21:45)
[2021-01-09] MEDS ORDERED: MORPHINE SULFATE INJECTION 2 MG/ML SYRG IV PRN (23:00)
[2021-01-09] MEDS ORDERED: NITROGLYCERIN 0.4 MG SL TAB SL PRN (23:00)
[2021-01-09] MEDS: InsuLIN REG 1unit/0.01ml Soln (100units/ml) SC SCH ×2 (23:45→23:52)
[2021-01-09] MEDS: ASCORBIC ACID 500 MG TAB PO SCH (23:45)
[2021-01-09] MEDS: ATORVASTATIN 20 MG TAB PO SCH (23:45)
[2021-01-09] MEDS: ACCU-CHEK COMFORT CURVE STRIP VI SCH (23:45)
[2021-01-10] MEDS: SODIUM CHLOR 0.9% PF (SALINE LOCK) 10ML VIAL/SYR IV SCH ×4 (02:00→21:01)
[2021-01-10 06:08] LABS: Urine Bacteria FEW /hpf (None Seen); Urine Blood 1+ /uL (Negative); Urine Hyaline Cast FEW /lpf (0 - 2); Urine Specific Gravity 1.012 (1.001-1.035); Urine WBC 15 /hpf (0 - 5)
[2021-01-10] MEDS: ACCU-CHEK COMFORT CURVE STRIP VI SCH ×4 (07:21→21:02)
[2021-01-10 10:00] VITALS: BP 142/89
[2021-01-10 10:43] LABS: Basophils # (auto) 0.1 10 ^3/uL (0-0.2); Basophils % (auto) 0.7 % (0.0-2.0); Eosinophils # (auto) 0.2 10 ^3/uL (0-0.8); Eosinophils % (auto) 2.2 % (0.0-7.0); Hematocrit 34.8 % (36.0-46.0); Hemoglobin 11.2 g/dL (12.2-16.2); Lymphocytes # (auto) 3.3 10 ^3/uL (0.4-5.4); Lymphocytes % (auto) 30.5 % (10.0-50.0); Mean Corpuscular Hemoglobin 29.5 pg (28.0-32.0); Mean Corpuscular Hgb Conc. 32.2 g/dL (32.0-36.0); Mean Corpuscular Volume 91.7 fL (80.0-100.0); Monocytes # (auto) 0.6 10 ^3/uL (0-1.3); Monocytes % (auto) 5.7 % (0.0-12.0); Neutrophils # (auto) 6.5 10 ^3/uL (1.6-8.6); Neutrophils % (auto) 60.9 % (37.0-80.0); Nucleated Red Blood Cells % 0.1 %; Red Cell Distribution Width 17.6 % (11.8-14.3); White Blood Cell 10.7 10^3/uL (4.4-10.8)
[2021-01-10 11:15] VITALS: BP 142/89
[2021-01-10 11:16] LABS: Albumin 2.8 g/dL (3.4-5.0); Calcium 9.9 mg/dL (8.5-10.1); Potassium 3.6 mmol/L (3.5-5.1)
[2021-01-10 11:20] LABS: Bilirubin, Total 0.4 mg/dL (0.2-1.0); Total Protein 7.1 g/dL (6.4-8.2)
[2021-01-10] MEDS: MULTIPLE VITAMIN TAB PO SCH (12:13)
[2021-01-10] MEDS: cefTRIAXone 1GM/50ML D5W 50 ML IV SCH (12:13)
[2021-01-10] MEDS: ZINC SULFATE 220mg CAP or TAB PO SCH (12:13)
[2021-01-10] MEDS: ASCORBIC ACID 500 MG TAB PO SCH ×2 (12:13→21:01)
[2021-01-10] MEDS: FAMOTIDINE (10MG/ML) 2ML VL IV SCH (12:14)
[2021-01-10] MEDS: ASPirin 81 mg TAB PO SCH (12:14)
[2021-01-10] MEDS: InsuLIN REG 1unit/0.01ml Soln (100units/ml) SC SCH ×3 (12:48→21:02)
[2021-01-10 17:23] VITALS: BP 137/67
[2021-01-10] MEDS: ATORVASTATIN 20 MG TAB PO SCH (21:01)
[2021-01-10 22:00] VITALS: BP 133/78
[2021-01-11] MEDS: ACCU-CHEK COMFORT CURVE STRIP VI SCH ×4 (05:58→21:10)
[2021-01-11] MEDS: SODIUM CHLOR 0.9% PF (SALINE LOCK) 10ML VIAL/SYR IV SCH ×3 (05:58→21:09)
[2021-01-11] MEDS: InsuLIN REG 1unit/0.01ml Soln (100units/ml) SC SCH ×4 (06:00→20:47)
[2021-01-11 09:00] VITALS: BP 141/91
[2021-01-11] MEDS: cefTRIAXone 1GM/50ML D5W 50 ML IV SCH (09:00)
[2021-01-11] MEDS: ASCORBIC ACID 500 MG TAB PO SCH ×2 (11:13→21:10)
[2021-01-11] MEDS: MULTIPLE VITAMIN TAB PO SCH (11:13)
[2021-01-11] MEDS: ZINC SULFATE 220mg CAP or TAB PO SCH (11:13)
[2021-01-11] MEDS: ASPirin 81 mg TAB PO SCH (11:14)
[2021-01-11] MEDS: FAMOTIDINE (10MG/ML) 2ML VL IV SCH (11:16)
[2021-01-11 11:40] LABS: Potassium 3.6 mmol/L (3.5-5.1)
[2021-01-11 11:45] LABS: BUN/Creatinine Ratio 8.2; Calcium 9.8 mg/dL (8.5-10.1)
[2021-01-11 13:00] VITALS: BP 111/83
[2021-01-11 15:58] LABS: Basophils # (auto) 0.1 10 ^3/uL (0-0.2); Basophils % (auto) 0.6 % (0.0-2.0); Eosinophils # (auto) 0.3 10 ^3/uL (0-0.8); Eosinophils % (auto) 3.9 % (0.0-7.0); Hematocrit 31.8 % (36.0-46.0); Hemoglobin 10.5 g/dL (12.2-16.2); Lymphocytes # (auto) 2.3 10 ^3/uL (0.4-5.4); Lymphocytes % (auto) 26.2 % (10.0-50.0); Mean Corpuscular Hemoglobin 29.2 pg (28.0-32.0); Mean Corpuscular Volume 88.7 fL (80.0-100.0); Monocytes # (auto) 0.6 10 ^3/uL (0-1.3); Monocytes % (auto) 6.8 % (0.0-12.0); Neutrophils # (auto) 5.4 10 ^3/uL (1.6-8.6); Neutrophils % (auto) 62.5 % (37.0-80.0); Red Blood Cells 3.59 10^6/uL (4.0-5.20); Red Cell Distribution Width 17.3 % (11.8-14.3); White Blood Cell 8.6 10^3/uL (4.4-10.8)
[2021-01-11 17:00] VITALS: BP 115/80
[2021-01-11] MEDS: MIRTAZAPINE 30 MG TAB PO SCH (21:10)
[2021-01-11] MEDS: MEMANTINE HCL 5 MG TAB PO SCH (21:10)
[2021-01-11] MEDS: ATORVASTATIN 20 MG TAB PO SCH (21:10)
[2021-01-11 22:00] VITALS: BP 134/74
[2021-01-12 05:00] VITALS: BP 140/76
[2021-01-12 05:57] LABS: Basophils # (auto) 0 10 ^3/uL (0-0.2); Basophils % (auto) 0.4 % (0.0-2.0); Eosinophils # (auto) 0.2 10 ^3/uL (0-0.8); Hematocrit 34.9 % (36.0-46.0); Hemoglobin 11.5 g/dL (12.2-16.2); Lymphocytes # (auto) 2.5 10 ^3/uL (0.4-5.4); Lymphocytes % (auto) 23.3 % (10.0-50.0); Mean Corpuscular Hemoglobin 29.5 pg (28.0-32.0); Mean Corpuscular Hgb Conc. 32.9 g/dL (32.0-36.0); Mean Corpuscular Volume 89.7 fL (80.0-100.0); Monocytes # (auto) 0.6 10 ^3/uL (0-1.3); Monocytes % (auto) 5.4 % (0.0-12.0); Neutrophils # (auto) 7.5 10 ^3/uL (1.6-8.6); Neutrophils % (auto) 68.9 % (37.0-80.0); Red Blood Cells 3.89 10^6/uL (4.0-5.20); Red Cell Distribution Width 17.3 % (11.8-14.3); White Blood Cell 10.9 10^3/uL (4.4-10.8)
[2021-01-12 06:16] LABS: Potassium 3.4 mmol/L (3.5-5.1)
[2021-01-12] MEDS: ACCU-CHEK COMFORT CURVE STRIP VI SCH ×4 (06:19→21:50)
[2021-01-12] MEDS: InsuLIN REG 1unit/0.01ml Soln (100units/ml) SC SCH ×4 (06:19→21:50)
[2021-01-12] MEDS: SODIUM CHLOR 0.9% PF (SALINE LOCK) 10ML VIAL/SYR IV SCH ×3 (06:20→21:39)
[2021-01-12 06:23] LABS: BUN/Creatinine Ratio 8.2; Calcium 10.2 mg/dL (8.5-10.1)
[2021-01-12 09:00] VITALS: BP 132/88
[2021-01-12] MEDS: cefTRIAXone 1GM/50ML D5W 50 ML IV SCH (10:59)
[2021-01-12] MEDS: FAMOTIDINE (10MG/ML) 2ML VL IV SCH (11:03)
[2021-01-12] MEDS: ASPirin 81 mg TAB PO SCH (11:03)
[2021-01-12] MEDS: ZINC SULFATE 220mg CAP or TAB PO SCH (11:03)
[2021-01-12] MEDS: MULTIPLE VITAMIN TAB PO SCH (11:04)
[2021-01-12] MEDS: MEMANTINE HCL 5 MG TAB PO SCH ×2 (11:04→21:38)
[2021-01-12] MEDS: ASCORBIC ACID 500 MG TAB PO SCH ×2 (11:04→21:38)
[2021-01-12 12:43] VITALS: BP 116/55
[2021-01-12 17:00] VITALS: BP 112/63
[2021-01-12] MEDS: ATORVASTATIN 20 MG TAB PO SCH (21:38)
[2021-01-12] MEDS: MIRTAZAPINE 30 MG TAB PO SCH (21:38)
[2021-01-12 22:00] VITALS: BP 111/63
[2021-01-13 05:00] VITALS: BP 115/74
[2021-01-13 05:31] LABS: Basophils # (auto) 0.1 10 ^3/uL (0-0.2); Basophils % (auto) 0.9 % (0.0-2.0); Eosinophils # (auto) 0.4 10 ^3/uL (0-0.8); Eosinophils % (auto) 5.1 % (0.0-7.0); Hematocrit 31.4 % (36.0-46.0); Lymphocytes # (auto) 2.6 10 ^3/uL (0.4-5.4); Lymphocytes % (auto) 32.1 % (10.0-50.0); Mean Corpuscular Hemoglobin 29.2 pg (28.0-32.0); Mean Corpuscular Hgb Conc. 31.8 g/dL (32.0-36.0); Mean Corpuscular Volume 92.1 fL (80.0-100.0); Monocytes # (auto) 0.6 10 ^3/uL (0-1.3); Monocytes % (auto) 7.3 % (0.0-12.0); Neutrophils # (auto) 4.5 10 ^3/uL (1.6-8.6); Neutrophils % (auto) 54.6 % (37.0-80.0); Nucleated Red Blood Cells % 0.1 %; Red Blood Cells 3.41 10^6/uL (4.0-5.20); Red Cell Distribution Width 17.2 % (11.8-14.3); White Blood Cell 8.2 10^3/uL (4.4-10.8)
[2021-01-13 05:52] LABS: Calcium 9.3 mg/dL (8.5-10.1); Potassium 3.4 mmol/L (3.5-5.1)
[2021-01-13] MEDS: SODIUM CHLOR 0.9% PF (SALINE LOCK) 10ML VIAL/SYR IV SCH ×3 (05:54→22:06)
[2021-01-13] MEDS: InsuLIN REG 1unit/0.01ml Soln (100units/ml) SC SCH ×4 (05:54→22:00)
[2021-01-13] MEDS: ACCU-CHEK COMFORT CURVE STRIP VI SCH ×4 (05:54→22:10)
[2021-01-13] MEDS: cefTRIAXone 1GM/50ML D5W 50 ML IV SCH (09:00)
[2021-01-13 09:05] VITALS: BP 115/61
[2021-01-13] MEDS ORDERED: POTASSIUM EFFERVESENT TAB 25 MEQ GT ONE (09:15)
[2021-01-13] MEDS ORDERED: SENN8.6C PO (09:45)
[2021-01-13] MEDS: ASPirin 81 mg TAB PO SCH (10:00)
[2021-01-13] MEDS: MULTIPLE VITAMIN TAB PO SCH (10:00)
[2021-01-13] MEDS: MEMANTINE HCL 5 MG TAB PO SCH ×2 (10:00→22:06)
[2021-01-13] MEDS: ZINC SULFATE 220mg CAP or TAB PO SCH (10:00)
[2021-01-13] MEDS: ASCORBIC ACID 500 MG TAB PO SCH ×2 (10:00→22:06)
[2021-01-13] MEDS: FAMOTIDINE (10MG/ML) 2ML VL IV SCH (10:00)
[2021-01-13 12:54] VITALS: BP 124/82
[2021-01-13 16:32] VITALS: BP 143/92
[2021-01-13 22:00] VITALS: BP 117/61
[2021-01-13] MEDS: ATORVASTATIN 20 MG TAB PO SCH (22:06)
[2021-01-13] MEDS: MIRTAZAPINE 30 MG TAB PO SCH (22:06)
[2021-01-14 05:00] VITALS: BP 135/59
[2021-01-14] MEDS: SODIUM CHLOR 0.9% PF (SALINE LOCK) 10ML VIAL/SYR IV SCH ×2 (05:45→13:57)
[2021-01-14] MEDS: ACCU-CHEK COMFORT CURVE STRIP VI SCH ×2 (05:50→11:30)
[2021-01-14] MEDS: InsuLIN REG 1unit/0.01ml Soln (100units/ml) SC SCH ×2 (05:50→11:30)
[2021-01-14 09:00] VITALS: BP 137/73
[2021-01-14] MEDS: cefTRIAXone 1GM/50ML D5W 50 ML IV SCH (09:00)
[2021-01-14] MEDS: MULTIPLE VITAMIN TAB PO SCH (10:00)
[2021-01-14] MEDS: MEMANTINE HCL 5 MG TAB PO SCH (10:00)
[2021-01-14] MEDS: ASPirin 81 mg TAB PO SCH (10:00)
[2021-01-14] MEDS: ZINC SULFATE 220mg CAP or TAB PO SCH (10:00)
[2021-01-14] MEDS: ASCORBIC ACID 500 MG TAB PO SCH (10:00)
[2021-01-14 13:00] VITALS: BP 136/91
== END 2021-01-14 16:20 | disposition hospice, home (50) | DRG 71 ==
LOC: EDBD 11:04 → ER 11:04 → EDUNIT# 11:04 → OVERFLOW 22:59 → CENTRAL 01-10 09:00
PROVIDERS: ADMIT Nurse Practitioner Family; ATTEND Internal Medicine Pulmonary Disease
DX: G93.41 Metabolic encephalopathy (principal); N39.0 Urinary tract infection, site not specified; Z68.41 Body mass index [BMI] 40.0-44.9, adult; E11.9 Type 2 diabetes mellitus without complications; E66.01 Morbid (severe) obesity due to excess calories; E88.09 Other disorders of plasma-protein metabolism, not elsewhere classified; F03.90 Unspecified dementia, unspecified severity, without behavioral disturbance, psychotic disturbance, mood disturbance, and anxiety; F17.200 Nicotine dependence, unspecified, uncomplicated; I10 Essential (primary) hypertension; M19.90 Unspecified osteoarthritis, unspecified site; F32.A Depression, unspecified; Z20.822 Contact with and (suspected) exposure to COVID-19; M25.571 Pain in right ankle and joints of right foot; M25.572 Pain in left ankle and joints of left foot; Z79.01 Long term (current) use of anticoagulants; Z74.01 Bed confinement status; Z81.8 Family history of other mental and behavioral disorders; Z82.49 Family history of ischemic heart disease and other diseases of the circulatory system; Z83.3 Family history of diabetes mellitus; Z86.711 Personal history of pulmonary embolism; Z86.73 Personal history of transient ischemic attack (TIA), and cerebral infarction without residual deficits; Z79.899 Other long term (current) drug therapy
CPT/HCPCS: 36415; 70450; 71045; 73600; 80048; 80053; 81001; 82962; 83036; 83880; 84484; 85025; 87086; 87426; 93005; G0378; J0696; J1815; J3490

== ENCOUNTER 2023-01-09 09:50 | Inpatient (IN) | payer BC ==
[~2023-01-09] VITALS: Ht 147.3 cm; Wt 127.0 kg
[~2023-01-09 09:50] MED LIST changes: -AMLO-496 PO; +AMLO1TAB23 PO; -LATA0.0019 EACHEYE; +LATA0.008 EACHEYE; -LISI20TA28 PO; +LISI20TA56 PO; +SENN8.6C PO; -SIMV-8 PO; +SIMV20TA20 PO; -VALS160T43 PO; +VALS160T6 PO
[2023-01-09 11:22] LABS: Albumin 3.5 g/dL (3.2-4.8); Alkaline Phosphatase 42 U/L (46-116); Anion Gap 9 (5-15); Aspartate Aminotransferase 30 U/L (13-40); BUN/Creatinine Ratio 6.9 (10.0-20.0); Bilirubin, Total 0.6 mg/dL (0.2-1.0); Blood Urea Nitrogen 7 mg/dL (9-23); Calcium 9.6 mg/dL (8.5-10.1); Carbon Dioxide 31 mmol/L (20-30); Chloride 93 mmol/L (98-107); Glucose 110 mg/dL (74-106); Potassium 3.1 mmol/L (3.5-5.1); Sodium 133 mmol/L (136-145); Total Protein 6.8 g/dL (5.7-8.2)
[2023-01-09 11:23] LABS: Lactic Acid w/Reflex 2.5 mmol/L (0.4-2.0)
[2023-01-09 11:32] LABS: Basophils # (auto) 0.1 10 ^3/uL (0-0.2); Basophils % (auto) 0.7 % (0.0-2.0); Eosinophils # (auto) 0.3 10 ^3/uL (0-0.8); Eosinophils % (auto) 2.3 % (0.0-7.0); Hematocrit 41.9 % (36.0-46.0); Hemoglobin 13.2 g/dL (12.2-16.2); Lymphocytes # (auto) 3.6 10 ^3/uL (0.4-5.4); Lymphocytes % (auto) 31.2 % (10.0-50.0); Mean Corpuscular Hemoglobin 27.8 pg (28.0-32.0); Mean Corpuscular Hgb Conc. 31.5 g/dL (32.0-36.0); Mean Corpuscular Volume 88.1 fL (80.0-100.0); Monocytes # (auto) 0.9 10 ^3/uL (0-1.3); Monocytes % (auto) 7.6 % (0.0-12.0); Neutrophils # (auto) 6.8 10 ^3/uL (1.6-8.6); Neutrophils % (auto) 58.2 % (37.0-80.0); Nucleated Red Blood Cells % 0.2 %; Red Blood Cells 4.76 10^6/uL (4.0-5.20); Red Cell Distribution Width 18.2 % (11.8-14.3); White Blood Cell 11.6 10^3/uL (4.4-10.8)
[2023-01-09 11:44] LABS: Alanine Aminotransferase < 9 U/L (7-40)
[2023-01-09] MEDS ORDERED: POTASSIUM EFFERVESENT TAB 25 MEQ PO ONE (12:00)
[2023-01-09] MEDS ORDERED: PIPERACILLIN-TAZO 4.5GM 100 ML IV ONE ×2 (12:30→13:45)
[2023-01-09] MEDS ORDERED: VANCOMYCIN 1GM/250ML 250 ML IV ONE ×2 (12:30→14:30)
[2023-01-09 13:27] LABS: Erythrocyte Sedimentation Rate 50 mm/hr (0-20)
[2023-01-09] MEDS ORDERED: VANCOMYCIN PER PHARMACY 0 MG IV SCH (13:45)
[2023-01-09 14:00] LABS: Triglycerides 118 mg/dL (< 150)
[2023-01-09 14:01] LABS: LDL Cholesterol 81 mg/dL (< 100)
[2023-01-09 14:02] LABS: Cholesterol 146 mg/dL (< 200); HDL Cholesterol 37 mg/dL (40-59)
[2023-01-09] MEDS ORDERED: ONDANSETRON HCL 4 MG/2 ML VIAL IV PRN (14:30)
[2023-01-09] MEDS ORDERED: NITROGLYCERIN 0.4 MG SL TAB SL PRN (14:30)
[2023-01-09] MEDS ORDERED: ACETAMINOPHEN 325 MG TAB PO PRN (14:30)
[2023-01-09] MEDS ORDERED: DEXTROSE (50%) 50ML SYRG IV PRN (14:30)
[2023-01-09] MEDS ORDERED: MORPHINE SULFATE INJ 2 MG/ml SYRG IV PRN (14:30)
[2023-01-09 16:19] LABS: INR 1.25 (0.9-1.15); Prothrombin Time 12.9 sec (9.3-11.8)
[2023-01-09] MEDS: InsuLIN REG 1unit/0.01ml Soln (100units/ml) SC SCH ×2 (17:00→22:37)
[2023-01-09] MEDS: SODIUM CHLORIDE 0.9% 1,000 ML IV SCH (18:37)
[2023-01-09] MEDS: ACCU-CHEK COMFORT CURVE STRIP VI SCH ×2 (18:47→22:36)
[2023-01-09 18:50] VITALS: PULSE 84; O2SAT 98
[2023-01-09 19:35] VITALS: PULSE 78; RESP 20; O2SAT 96
[2023-01-09] MEDS: VANCOMYCIN 1GM/250ML 250 ML IV SCH (21:27)
[2023-01-09] MEDS: PIPERACILLIN-TAZOB 3.375GM 100 ML IV SCH (22:31)
[2023-01-09] MEDS: ASCORBIC ACID 500 MG TAB PO SCH (22:36)
[2023-01-09 23:14] VITALS: PULSE 86; RESP 20; O2SAT 95
[2023-01-10] VITALS (7 sets, daily range): BP systolic 97–111; BP diastolic 53–70; PULSE 66–83; RESP 18–19; TEMP 97.4–98.5; O2SAT 94–100
[2023-01-10] MEDS ORDERED: APIX5TAB PO (00:11)
[2023-01-10] MEDS ORDERED: MIDO5TAB4 PO (00:11)
[2023-01-10] MEDS ORDERED: FURO20TA3 PO (00:11)
[2023-01-10] MEDS ORDERED: MEMA1TAB5 PO (00:11)
[2023-01-10] MEDS: PIPERACILLIN-TAZOB 3.375GM 100 ML IV SCH ×3 (06:03→22:47)
[2023-01-10] MEDS: SODIUM CHLORIDE 0.9% 1,000 ML IV SCH ×3 (06:03→17:31)
[2023-01-10] MEDS: InsuLIN REG 1unit/0.01ml Soln (100units/ml) SC SCH ×4 (07:00→22:00)
[2023-01-10] MEDS: ACCU-CHEK COMFORT CURVE STRIP VI SCH ×4 (07:03→22:00)
[2023-01-10 07:17] LABS: Basophils # (auto) 0.1 10 ^3/uL (0-0.2); Basophils % (auto) 0.6 % (0.0-2.0); Eosinophils # (auto) 0.4 10 ^3/uL (0-0.8); Eosinophils % (auto) 3.4 % (0.0-7.0); Hematocrit 41.1 % (36.0-46.0); Lymphocytes # (auto) 1.7 10 ^3/uL (0.4-5.4); Lymphocytes % (auto) 15.7 % (10.0-50.0); Mean Corpuscular Hemoglobin 28.3 pg (28.0-32.0); Mean Corpuscular Hgb Conc. 31.7 g/dL (32.0-36.0); Mean Corpuscular Volume 89.3 fL (80.0-100.0); Monocytes # (auto) 0.7 10 ^3/uL (0-1.3); Monocytes % (auto) 6.6 % (0.0-12.0); Neutrophils # (auto) 8.1 10 ^3/uL (1.6-8.6); Neutrophils % (auto) 73.7 % (37.0-80.0); Red Cell Distribution Width 18.2 % (11.8-14.3)
[2023-01-10 07:20] LABS: Albumin 3.1 g/dL (3.2-4.8); Alkaline Phosphatase 43 U/L (46-116); Anion Gap 10 (5-15); Aspartate Aminotransferase 20 U/L (13-40); BUN/Creatinine Ratio 6.2 (10.0-20.0); Bilirubin, Total 0.6 mg/dL (0.2-1.0); Blood Urea Nitrogen 7 mg/dL (9-23); Calcium 9.2 mg/dL (8.7-10.4); Carbon Dioxide 29 mmol/L (20-30); Chloride 96 mmol/L (98-107); Glucose 81 mg/dL (74-106); Potassium 3.3 mmol/L (3.5-5.1); Sodium 135 mmol/L (136-145); Total Protein 6.3 g/dL (5.7-8.2)
[2023-01-10 07:30] LABS: Alanine Aminotransferase < 9 U/L (7-40)
[2023-01-10 09:58] LABS: Urine Bacteria NONE SEEN /hpf (None Seen); Urine Blood 3+ /uL (Negative); Urine Clarity HAZY (Clear); Urine Color Yellow (Yellow); Urine Mucus FEW (None Seen); Urine Protein, UAD 1+ (Negative); Urine Urobilinogen Normal (Negative); Urine WBC 260 /hpf (0 - 5)
[2023-01-10] MEDS: ROPINIROLE PO SCH (10:00)
[2023-01-10] MEDS ORDERED: OMEPRAZOLE MAGNESIUM 20 MG PO SCH (10:00)
[2023-01-10] MEDS: ASCORBIC ACID 500 MG TAB PO SCH ×2 (10:12→22:47)
[2023-01-10] MEDS: ZINC SULFATE 220mg CAP or TAB PO SCH (10:12)
[2023-01-10] MEDS: PANTOPRAZOLE 40 MG TAB PO SCH (10:12)
[2023-01-10] MEDS: MULTIPLE VITAMIN TAB PO SCH (10:12)
[2023-01-10 10:17] LABS: Urine Specific Gravity > 1.050 (1.001-1.035)
[2023-01-10 10:58] LABS: INR 1.15 (0.9-1.15); Partial Thromboplastin Time 27.8 SEC (24.5-34.5)
[2023-01-10] MEDS: VANCOMYCIN 1GM/250ML 250 ML IV SCH (11:00)
[2023-01-11] VITALS (8 sets, daily range): BP systolic 91–120; BP diastolic 47–72; PULSE 72–87; RESP 16–18; TEMP 97.3–98.2; O2SAT 92–100
[2023-01-11] MEDS: VANCOMYCIN 1GM/250ML 250 ML IV SCH ×2 (04:57→22:31)
[2023-01-11] MEDS: PIPERACILLIN-TAZOB 3.375GM 100 ML IV SCH ×3 (06:19→23:56)
[2023-01-11] MEDS: SODIUM CHLORIDE 0.9% 1,000 ML IV SCH ×2 (06:30→20:33)
[2023-01-11] MEDS: InsuLIN REG 1unit/0.01ml Soln (100units/ml) SC SCH ×4 (06:48→22:00)
[2023-01-11] MEDS: ACCU-CHEK COMFORT CURVE STRIP VI SCH ×4 (06:48→22:30)
[2023-01-11] MEDS ORDERED: POTASSIUM EFFERVESENT TAB 25 MEQ PO ONE (09:15)
[2023-01-11] MEDS ORDERED: MAGNESIUM SULFATE 1GM/100ML 100 ML IV ONE (09:15)
[2023-01-11] MEDS: ROPINIROLE PO SCH (10:00)
[2023-01-11] MEDS: ASCORBIC ACID 500 MG TAB PO SCH ×2 (10:58→22:25)
[2023-01-11] MEDS: MULTIPLE VITAMIN TAB PO SCH (10:58)
[2023-01-11] MEDS: ZINC SULFATE 220mg CAP or TAB PO SCH (10:58)
[2023-01-11] MEDS: PANTOPRAZOLE 40 MG TAB PO SCH (10:58)
[2023-01-11] MEDS: ENOXAPARIN SOD 100 MG/1 ML SYRINGE SC SCH ×2 (11:01→22:26)
[2023-01-11] MEDS: MUPIROCIN 2% OINT 15gm or 22gm FOR MRSA NARES EACHNOSTRI SCH (22:00)
[2023-01-12] VITALS (10 sets, daily range): BP systolic 90–144; BP diastolic 52–92; PULSE 61–91; RESP 14–20; TEMP 97.5–98.6; O2SAT 95–100
[2023-01-12] MEDS: PIPERACILLIN-TAZOB 3.375GM 100 ML IV SCH ×3 (05:32→22:38)
[2023-01-12] MEDS: ACCU-CHEK COMFORT CURVE STRIP VI SCH ×4 (05:32→22:39)
[2023-01-12] MEDS: InsuLIN REG 1unit/0.01ml Soln (100units/ml) SC SCH ×4 (05:48→22:00)
[2023-01-12] MEDS ORDERED: LIDOCAINE 2%HCL (LOCAL ANESTH.) INJ 20ML MDV ONE (09:16)
[2023-01-12] MEDS ORDERED: HEPARIN IN NS 1000Units/500mL 1,500 ML ONE (09:16)
[2023-01-12] MEDS ORDERED: IODIXANOL 320MG/ML 100ML BTL IV ONE ×3 (09:16→10:57)
[2023-01-12] MEDS ORDERED: SODIUM CHL 0.9% 0 ML ONE (09:22)
[2023-01-12] MEDS ORDERED: ANGIOMAX 250 MG VIAL IV ONE (09:22)
[2023-01-12] MEDS ORDERED: MIDAZOLAM HCL 2MG/2ML 2ml VIAL (1mg/ml) ONE (09:22)
[2023-01-12] MEDS ORDERED: fentaNYL CITRATE 100 MCG/2 ML VL ONE (09:22)
[2023-01-12] MEDS: ZINC SULFATE 220mg CAP or TAB PO SCH (10:00)
[2023-01-12] MEDS: MULTIPLE VITAMIN TAB PO SCH (10:00)
[2023-01-12] MEDS: ROPINIROLE PO SCH (10:00)
[2023-01-12] MEDS: MUPIROCIN 2% OINT 15gm or 22gm FOR MRSA NARES EACHNOSTRI SCH ×2 (10:00→22:00)
[2023-01-12] MEDS: ENOXAPARIN SOD 100 MG/1 ML SYRINGE SC SCH ×2 (10:00→22:38)
[2023-01-12] MEDS: PANTOPRAZOLE 40 MG TAB PO SCH (10:00)
[2023-01-12] MEDS: ASCORBIC ACID 500 MG TAB PO SCH ×2 (10:00→22:38)
[2023-01-12] MEDS ORDERED: HEPARIN SODIUM (PORCINE) 5000 UNITS/ML 1ML VIAL ONE (10:28)
[2023-01-12] MEDS: SODIUM CHLORIDE 0.9% 1,000 ML IV SCH ×2 (14:04→22:30)
[2023-01-12] MEDS: VANCOMYCIN 1GM/250ML 250 ML IV SCH (16:42)
[2023-01-13] VITALS (7 sets, daily range): BP systolic 92–139; BP diastolic 36–100; PULSE 67–107; RESP 14–20; TEMP 97.8–98.8; O2SAT 98–100
[2023-01-13] MEDS: PIPERACILLIN-TAZOB 3.375GM 100 ML IV SCH ×3 (05:44→22:11)
[2023-01-13] MEDS: ACCU-CHEK COMFORT CURVE STRIP VI SCH ×4 (06:01→22:11)
[2023-01-13] MEDS: InsuLIN REG 1unit/0.01ml Soln (100units/ml) SC SCH ×4 (06:01→22:00)
[2023-01-13] MEDS: MULTIPLE VITAMIN TAB PO SCH (09:52)
[2023-01-13] MEDS: ASCORBIC ACID 500 MG TAB PO SCH ×2 (09:52→22:11)
[2023-01-13] MEDS: ZINC SULFATE 220mg CAP or TAB PO SCH (09:52)
[2023-01-13] MEDS: PANTOPRAZOLE 40 MG TAB PO SCH (09:52)
[2023-01-13] MEDS: MUPIROCIN 2% OINT 15gm or 22gm FOR MRSA NARES EACHNOSTRI SCH ×2 (09:53→22:28)
[2023-01-13] MEDS: ENOXAPARIN SOD 100 MG/1 ML SYRINGE SC SCH ×2 (09:55→22:11)
[2023-01-13] MEDS: ROPINIROLE PO SCH (09:56)
[2023-01-13] MEDS: SODIUM CHLORIDE 0.9% 1,000 ML IV SCH (11:53)
[2023-01-13] MEDS: MIDODRINE HCL 10 MG TAB PO SCH ×2 (13:11→22:10)
[2023-01-13] MEDS: Ensure HIGH Protein Chocolate 8oz Bottle PO SCH (18:17)
[2023-01-13] MEDS: HYDROcodone-ACET 5/325MG TAB PO PRN (18:25)
[2023-01-14] VITALS (7 sets, daily range): BP systolic 99–142; BP diastolic 53–91; PULSE 84–97; RESP 12–20; TEMP 97.2–99; O2SAT 98–100
[2023-01-14] MEDS: HYDROcodone-ACET 5/325MG TAB PO PRN ×2 (01:36→13:33)
[2023-01-14] MEDS: PIPERACILLIN-TAZOB 3.375GM 100 ML IV SCH ×3 (05:20→21:40)
[2023-01-14] MEDS: SODIUM CHLORIDE 0.9% 1,000 ML IV SCH ×2 (05:27→13:36)
[2023-01-14] MEDS: InsuLIN REG 1unit/0.01ml Soln (100units/ml) SC SCH ×4 (06:06→21:41)
[2023-01-14] MEDS: ACCU-CHEK COMFORT CURVE STRIP VI SCH ×4 (06:06→21:40)
[2023-01-14 06:36] LABS: Basophils # (auto) 0 10 ^3/uL (0-0.2); Basophils % (auto) 0.2 % (0.0-2.0); Eosinophils # (auto) 0.3 10 ^3/uL (0-0.8); Eosinophils % (auto) 2.6 % (0.0-7.0); Hematocrit 29.7 % (36.0-46.0); Hemoglobin 9.4 g/dL (12.2-16.2); Lymphocytes # (auto) 2.4 10 ^3/uL (0.4-5.4); Lymphocytes % (auto) 20.4 % (10.0-50.0); Mean Corpuscular Hemoglobin 27.5 pg (28.0-32.0); Mean Corpuscular Hgb Conc. 31.8 g/dL (32.0-36.0); Mean Corpuscular Volume 86.7 fL (80.0-100.0); Monocytes # (auto) 0.9 10 ^3/uL (0-1.3); Monocytes % (auto) 7.3 % (0.0-12.0); Neutrophils # (auto) 8.2 10 ^3/uL (1.6-8.6); Neutrophils % (auto) 69.5 % (37.0-80.0); Nucleated Red Blood Cells % 0.1 %; Red Blood Cells 3.42 10^6/uL (4.0-5.20); Red Cell Distribution Width 18.3 % (11.8-14.3); White Blood Cell 11.7 10^3/uL (4.4-10.8)
[2023-01-14 06:53] LABS: Chloride 98 mmol/L (98-107); Sodium 136 mmol/L (136-145)
[2023-01-14 06:54] LABS: Calcium 9.1 mg/dL (8.5-10.1)
[2023-01-14 06:56] LABS: Anion Gap 10 (5-15); Carbon Dioxide 28 mmol/L (20-30)
[2023-01-14 06:59] LABS: BUN/Creatinine Ratio 4.7 (10.0-20.0); Blood Urea Nitrogen 11 mg/dL (9-23); Glucose 115 mg/dL (74-106)
[2023-01-14 07:01] LABS: Phosphorus 3.4 mg/dL (2.4-5.1); Potassium 2.3 mmol/L (3.5-5.1)
[2023-01-14] MEDS ORDERED: POTASSIUM CHL 20 Meq TABLET PO ONE (07:15)
[2023-01-14 07:28] LABS: Magnesium 1.4 mg/dL (1.6-2.6)
[2023-01-14] MEDS: Ensure HIGH Protein Chocolate 8oz Bottle PO SCH ×3 (08:00→17:17)
[2023-01-14] MEDS: MULTIPLE VITAMIN TAB PO SCH (09:40)
[2023-01-14] MEDS: ENOXAPARIN SOD 100 MG/1 ML SYRINGE SC SCH (09:40)
[2023-01-14] MEDS: ASCORBIC ACID 500 MG TAB PO SCH ×2 (09:40→21:40)
[2023-01-14] MEDS: PANTOPRAZOLE 40 MG TAB PO SCH (09:40)
[2023-01-14] MEDS: ZINC SULFATE 220mg CAP or TAB PO SCH (09:40)
[2023-01-14] MEDS: MIDODRINE HCL 10 MG TAB PO SCH ×2 (09:40→21:40)
[2023-01-14] MEDS: ROPINIROLE PO SCH (09:41)
[2023-01-14] MEDS: MUPIROCIN 2% OINT 15gm or 22gm FOR MRSA NARES EACHNOSTRI SCH ×2 (09:41→21:41)
[2023-01-15] VITALS (7 sets, daily range): BP systolic 92–129; BP diastolic 36–110; PULSE 83–96; RESP 18–20; TEMP 97.9–98.9; O2SAT 95–100
[2023-01-15] MEDS: HYDROcodone-ACET 5/325MG TAB PO PRN (02:02)
[2023-01-15] MEDS: SODIUM CHLORIDE 0.9% 1,000 ML IV SCH ×2 (03:50→13:28)
[2023-01-15] MEDS: PIPERACILLIN-TAZOB 3.375GM 100 ML IV SCH (05:24)
[2023-01-15] MEDS: ACCU-CHEK COMFORT CURVE STRIP VI SCH ×4 (06:07→22:00)
[2023-01-15] MEDS: InsuLIN REG 1unit/0.01ml Soln (100units/ml) SC SCH ×4 (06:07→22:00)
[2023-01-15 07:25] LABS: Chloride 100 mmol/L (98-107); Sodium 137 mmol/L (136-145)
[2023-01-15 07:26] LABS: Anion Gap 10 (5-15); Carbon Dioxide 27 mmol/L (20-30)
[2023-01-15 07:27] LABS: Calcium 9.1 mg/dL (8.7-10.4)
[2023-01-15 07:32] LABS: BUN/Creatinine Ratio 5.5 (10.0-20.0); Blood Urea Nitrogen 16 mg/dL (9-23); Glucose 94 mg/dL (74-106)
[2023-01-15 07:34] LABS: Potassium 2.9 mmol/L (3.5-5.1)
[2023-01-15 07:39] LABS: Basophils # (auto) 0 10 ^3/uL (0-0.2); Basophils % (auto) 0.3 % (0.0-2.0); Eosinophils # (auto) 0.2 10 ^3/uL (0-0.8); Eosinophils % (auto) 1.7 % (0.0-7.0); Hematocrit 28.1 % (36.0-46.0); Hemoglobin 9.1 g/dL (12.2-16.2); Lymphocytes # (auto) 2.9 10 ^3/uL (0.4-5.4); Lymphocytes % (auto) 23.2 % (10.0-50.0); Mean Corpuscular Hemoglobin 27.6 pg (28.0-32.0); Mean Corpuscular Hgb Conc. 32.3 g/dL (32.0-36.0); Mean Corpuscular Volume 85.3 fL (80.0-100.0); Monocytes # (auto) 0.9 10 ^3/uL (0-1.3); Monocytes % (auto) 6.9 % (0.0-12.0); Neutrophils # (auto) 8.4 10 ^3/uL (1.6-8.6); Neutrophils % (auto) 67.9 % (37.0-80.0); Nucleated Red Blood Cells % 0.1 %; Red Cell Distribution Width 18.2 % (11.8-14.3); White Blood Cell 12.4 10^3/uL (4.4-10.8)
[2023-01-15] MEDS: Ensure HIGH Protein Chocolate 8oz Bottle PO SCH ×3 (08:00→18:18)
[2023-01-15] MEDS ORDERED: POTASSIUM CHL 20 Meq TABLET PO ONE (08:00)
[2023-01-15] MEDS: ROPINIROLE PO SCH (10:00)
[2023-01-15] MEDS: MUPIROCIN 2% OINT 15gm or 22gm FOR MRSA NARES EACHNOSTRI SCH ×2 (10:00→22:00)
[2023-01-15] MEDS: ZINC SULFATE 220mg CAP or TAB PO SCH (10:30)
[2023-01-15] MEDS: PANTOPRAZOLE 40 MG TAB PO SCH (10:30)
[2023-01-15] MEDS: MIDODRINE HCL 10 MG TAB PO SCH ×2 (10:30→22:28)
[2023-01-15] MEDS: ASCORBIC ACID 500 MG TAB PO SCH ×2 (10:30→22:27)
[2023-01-15] MEDS: ENOXAPARIN SOD 100 MG/1 ML SYRINGE SC SCH (10:30)
[2023-01-15] MEDS: MULTIPLE VITAMIN TAB PO SCH (10:30)
[2023-01-15] MEDS: POTASSIUM CHL 20MEQ/100ML 100 ML IV SCH ×2 (13:28→15:17)
[2023-01-15 14:24] LABS: Protein, Urine 121.3 mg/dL (0.0-11.9)
[2023-01-15 14:27] LABS: Creatinine, Urine 128.49 mg/dL (30.0-125.0); Urine Protein/Creatinine Ratio 0.94
[2023-01-15 17:11] LABS: Alanine Aminotransferase 11 U/L (7-40); Albumin 2.5 g/dL (3.2-4.8); Alkaline Phosphatase 55 U/L (46-116); Anion Gap 11 (5-15); Aspartate Aminotransferase 17 U/L (13-40); BUN/Creatinine Ratio 3.9 (10.0-20.0); Bilirubin, Total 0.5 mg/dL (0.2-1.0); Blood Urea Nitrogen 11 mg/dL (9-23); Carbon Dioxide 23 mmol/L (20-30); Chloride 102 mmol/L (98-107); Glucose 95 mg/dL (74-106); Potassium 4.1 mmol/L (3.5-5.1); Sodium 136 mmol/L (136-145); Total Protein 5.3 g/dL (5.7-8.2)
[2023-01-15] MEDS: LINEZOLID 600MG/300ML 300 ML IV SCH (22:28)
[2023-01-16] VITALS (8 sets, daily range): BP systolic 96–111; BP diastolic 26–51; PULSE 72–88; RESP 16–20; TEMP 96.9–98; O2SAT 100
[2023-01-16] MEDS: SODIUM CHLORIDE 0.9% 1,000 ML IV SCH ×5 (03:56→21:00)
[2023-01-16] MEDS: ACCU-CHEK COMFORT CURVE STRIP VI SCH ×3 (06:24→16:44)
[2023-01-16] MEDS: InsuLIN REG 1unit/0.01ml Soln (100units/ml) SC SCH ×3 (06:28→16:44)
[2023-01-16] MEDS: Ensure HIGH Protein Chocolate 8oz Bottle PO SCH ×3 (08:00→17:21)
[2023-01-16] MEDS: MIDODRINE HCL 10 MG TAB PO SCH ×2 (09:38→22:45)
[2023-01-16] MEDS: ZINC SULFATE 220mg CAP or TAB PO SCH (09:38)
[2023-01-16] MEDS: PANTOPRAZOLE 40 MG TAB PO SCH (09:38)
[2023-01-16] MEDS: ASCORBIC ACID 500 MG TAB PO SCH ×2 (09:38→22:45)
[2023-01-16] MEDS: MUPIROCIN 2% OINT 15gm or 22gm FOR MRSA NARES EACHNOSTRI SCH (09:38)
[2023-01-16] MEDS: LINEZOLID 600MG/300ML 300 ML IV SCH (09:38)
[2023-01-16] MEDS: MULTIPLE VITAMIN TAB PO SCH (09:38)
[2023-01-16] MEDS: ROPINIROLE PO SCH (09:39)
[2023-01-16] MEDS: ENOXAPARIN SOD 100 MG/1 ML SYRINGE SC SCH (09:39)
[2023-01-16 09:56] LABS: Basophils # (auto) 0 10 ^3/uL (0-0.2); Basophils % (auto) 0.5 % (0.0-2.0); Eosinophils # (auto) 0.2 10 ^3/uL (0-0.8); Eosinophils % (auto) 2.3 % (0.0-7.0); Hematocrit 25.9 % (36.0-46.0); Hemoglobin 8.4 g/dL (12.2-16.2); Lymphocytes # (auto) 2.7 10 ^3/uL (0.4-5.4); Lymphocytes % (auto) 27.5 % (10.0-50.0); Mean Corpuscular Hemoglobin 28.3 pg (28.0-32.0); Mean Corpuscular Hgb Conc. 32.5 g/dL (32.0-36.0); Mean Corpuscular Volume 87.2 fL (80.0-100.0); Monocytes # (auto) 0.7 10 ^3/uL (0-1.3); Monocytes % (auto) 7.1 % (0.0-12.0); Neutrophils # (auto) 6.1 10 ^3/uL (1.6-8.6); Neutrophils % (auto) 62.6 % (37.0-80.0); Nucleated Red Blood Cells % 0.1 %; Red Blood Cells 2.97 10^6/uL (4.0-5.20); Red Cell Distribution Width 18.4 % (11.8-14.3); White Blood Cell 9.7 10^3/uL (4.4-10.8)
[2023-01-16] MEDS: HYDROcodone-ACET 5/325MG TAB PO PRN (09:58)
[2023-01-16 11:31] LABS: Calcium 8.9 mg/dL (8.5-10.1); Chloride 104 mmol/L (98-107); Potassium 3.9 mmol/L (3.5-5.1); Sodium 139 mmol/L (136-145)
[2023-01-16 11:32] LABS: Anion Gap 9 (5-15); Carbon Dioxide 26 mmol/L (20-30)
[2023-01-16 11:37] LABS: BUN/Creatinine Ratio 5.3 (10.0-20.0); Blood Urea Nitrogen 13 mg/dL (9-23); Glucose 136 mg/dL (74-106)
[2023-01-16] MEDS ORDERED: VANCOMYCIN PER PHARMACY 0 MG IV SCH (12:30)
[2023-01-16] MEDS ORDERED: PPN PER PHARMACY 0 ML IV SCH (17:15)
[2023-01-16 18:33] LABS: Magnesium 1.3 mg/dL (1.6-2.6)
[2023-01-16 18:34] LABS: Phosphorus 3.2 mg/dL (2.4-5.1)
[2023-01-16] MEDS ORDERED: AMINO ACID INFUSION IN D10W 1,000 ML IV NR (20:00)
[2023-01-16] MEDS ORDERED: DEXTROSE (50%) 50ML SYRG IV SCH (20:00)
[2023-01-17] VITALS (7 sets, daily range): BP systolic 82–102; BP diastolic 28–45; PULSE 64–80; RESP 16–19; TEMP 97–97.7; O2SAT 99–100
[2023-01-17] MEDS: SODIUM CHLORIDE 0.9% 1,000 ML IV SCH ×3 (05:00→23:43)
[2023-01-17] MEDS: InsuLIN REG 1unit/0.01ml Soln (100units/ml) SC SCH ×5 (06:00→23:44)
[2023-01-17] MEDS: ACCU-CHEK COMFORT CURVE STRIP VI SCH ×5 (06:21→23:44)
[2023-01-17 06:46] LABS: Basophils # (auto) 0.1 10 ^3/uL (0-0.2); Basophils % (auto) 0.6 % (0.0-2.0); Eosinophils # (auto) 0.4 10 ^3/uL (0-0.8); Eosinophils % (auto) 4.4 % (0.0-7.0); Hematocrit 27.4 % (36.0-46.0); Hemoglobin 8.6 g/dL (12.2-16.2); Lymphocytes # (auto) 3.1 10 ^3/uL (0.4-5.4); Lymphocytes % (auto) 32.9 % (10.0-50.0); Mean Corpuscular Hemoglobin 28.5 pg (28.0-32.0); Mean Corpuscular Hgb Conc. 31.3 g/dL (32.0-36.0); Mean Corpuscular Volume 91.1 fL (80.0-100.0); Monocytes # (auto) 0.7 10 ^3/uL (0-1.3); Monocytes % (auto) 7.9 % (0.0-12.0); Neutrophils # (auto) 5.1 10 ^3/uL (1.6-8.6); Neutrophils % (auto) 54.2 % (37.0-80.0); Nucleated Red Blood Cells % 0.3 %; Red Blood Cells 3.01 10^6/uL (4.0-5.20); White Blood Cell 9.4 10^3/uL (4.4-10.8)
[2023-01-17 07:06] LABS: Albumin 2.4 g/dL (3.2-4.8); Alkaline Phosphatase 58 U/L (46-116); Anion Gap 9 (5-15); Aspartate Aminotransferase 20 U/L (13-40); BUN/Creatinine Ratio 5.2 (10.0-20.0); Blood Urea Nitrogen 11 mg/dL (9-23); Calcium 8.9 mg/dL (8.7-10.4); Carbon Dioxide 22 mmol/L (20-30); Chloride 107 mmol/L (98-107); Glucose 113 mg/dL (74-106); Magnesium 1.5 mg/dL (1.6-2.6); Phosphorus 2.6 mg/dL (2.4-5.1); Potassium 3.5 mmol/L (3.5-5.1); Sodium 138 mmol/L (136-145)
[2023-01-17 07:07] LABS: Bilirubin, Total 0.4 mg/dL (0.2-1.0); Total Protein 5.1 g/dL (5.7-8.2)
[2023-01-17 07:08] LABS: Alanine Aminotransferase < 9 U/L (7-40)
[2023-01-17 07:18] LABS: Triglycerides 74 mg/dL (< 150)
[2023-01-17] MEDS ORDERED: CLOP75TA28 PO (08:36)
[2023-01-17] MEDS: ROPINIROLE PO SCH (10:00)
[2023-01-17] MEDS: Ensure HIGH Protein Chocolate 8oz Bottle PO SCH ×3 (12:00→18:17)
[2023-01-17] MEDS: ZINC SULFATE 220mg CAP or TAB PO SCH (12:09)
[2023-01-17] MEDS: CLOPIDOGREL BISULFATE 75 MG TAB PO SCH (12:09)
[2023-01-17] MEDS: ASPirin 81 mg TAB PO SCH (12:10)
[2023-01-17] MEDS: MIDODRINE HCL 10 MG TAB PO SCH ×2 (12:11→22:04)
[2023-01-17] MEDS: PANTOPRAZOLE 40 MG TAB PO SCH (12:11)
[2023-01-17] MEDS: ASCORBIC ACID 500 MG TAB PO SCH ×2 (12:11→22:04)
[2023-01-17] MEDS: MULTIPLE VITAMIN TAB PO SCH (12:11)
[2023-01-17] MEDS ORDERED: MAGNESIUM SULFATE 1GM/100ML 100 ML IV SCH (15:00)
[2023-01-17] MEDS: MAGNESIUM SULFATE 1GM/100ML 100 ML IV SCH ×4 (17:28→18:59)
[2023-01-17] MEDS ORDERED: PPN PER PHARMACY IV NR ×17 (20:00)
[2023-01-18 05:20] VITALS: BP 86/36; PULSE 69; RESP 18; TEMP 97.2; O2SAT 97
[2023-01-18] MEDS: InsuLIN REG 1unit/0.01ml Soln (100units/ml) SC SCH ×3 (06:00→18:00)
[2023-01-18] MEDS: ACCU-CHEK COMFORT CURVE STRIP VI SCH ×3 (06:05→18:08)
[2023-01-18 07:09] LABS: Albumin 2.3 g/dL (3.2-4.8); Alkaline Phosphatase 48 U/L (46-116); Anion Gap 7 (5-15); Aspartate Aminotransferase 18 U/L (13-40); BUN/Creatinine Ratio 8.3 (10.0-20.0); Blood Urea Nitrogen 12 mg/dL (9-23); Calcium 8.7 mg/dL (8.5-10.1); Carbon Dioxide 24 mmol/L (20-30); Chloride 108 mmol/L (98-107); Glucose 101 mg/dL (74-106); Potassium 3.4 mmol/L (3.5-5.1); Sodium 139 mmol/L (136-145)
[2023-01-18 07:10] LABS: Bilirubin, Total 0.3 mg/dL (0.2-1.0); Phosphorus 1.6 mg/dL (2.4-5.1); Total Protein 4.6 g/dL (5.7-8.2)
[2023-01-18 07:13] LABS: Alanine Aminotransferase < 9 U/L (7-40)
[2023-01-18 07:31] LABS: Magnesium 1.7 mg/dL (1.6-2.6)
[2023-01-18 08:00] VITALS: PULSE 65; PULSE 74; RESP 20
[2023-01-18 08:20] VITALS: BP 102/53; PULSE 74; RESP 21; TEMP 97.7; O2SAT 100
[2023-01-18] MEDS: ROPINIROLE PO SCH (10:00)
[2023-01-18] MEDS ORDERED: POTASSIUM PHOSPHATE 22 MEQ in SODIUM CHL 0.9% 100 ML IV ONE (11:00)
[2023-01-18] MEDS: PANTOPRAZOLE 40 MG TAB PO SCH (11:34)
[2023-01-18] MEDS: MULTIPLE VITAMIN TAB PO SCH (11:34)
[2023-01-18] MEDS: CLOPIDOGREL BISULFATE 75 MG TAB PO SCH (11:34)
[2023-01-18] MEDS: ASCORBIC ACID 500 MG TAB PO SCH ×2 (11:34→22:49)
[2023-01-18] MEDS: ZINC SULFATE 220mg CAP or TAB PO SCH (11:36)
[2023-01-18] MEDS: ASPirin 81 mg TAB PO SCH (11:36)
[2023-01-18] MEDS: MIDODRINE HCL 10 MG TAB PO SCH ×2 (11:37→22:49)
[2023-01-18] MEDS: Ensure HIGH Protein Chocolate 8oz Bottle PO SCH ×3 (11:38→18:00)
[2023-01-18 12:15] VITALS: BP 89/57; PULSE 74; RESP 20; TEMP 97.7; O2SAT 100
[2023-01-18] MEDS: SODIUM CHLORIDE 0.9% 1,000 ML IV SCH ×2 (13:00→21:00)
[2023-01-18] MEDS ORDERED: POTASSIUM PHOSPHATE 44 MEQ in D5W 5% 250 ML IV ONE (13:15)
[2023-01-18] MEDS ORDERED: MAGNESIUM SULFATE 1GM/100ML 100 ML IV SCH (14:00)
[2023-01-18 16:20] VITALS: BP 87/55; PULSE 63; RESP 21; TEMP 97.5; O2SAT 100
[2023-01-18 19:24] LABS: INR 1.04 (0.9-1.15); Partial Thromboplastin Time < 20.0 SEC (24.5-34.5); Prothrombin Time 10.9 sec (9.3-11.8)
[2023-01-18] MEDS ORDERED: PPN PER PHARMACY IV NR ×9 (20:00)
[2023-01-18 22:00] VITALS: BP 108/50; PULSE 86; RESP 21; TEMP 98; O2SAT 100
[2023-01-19] VITALS (7 sets, daily range): BP systolic 96–126; BP diastolic 40–74; PULSE 84–101; RESP 18–100; TEMP 97.7–98.2; O2SAT 96–100
[2023-01-19] MEDS: SODIUM CHLORIDE 0.9% 1,000 ML IV SCH ×3 (05:00→21:00)
[2023-01-19] MEDS: InsuLIN REG 1unit/0.01ml Soln (100units/ml) SC SCH ×5 (06:00→23:19)
[2023-01-19 06:24] LABS: Alkaline Phosphatase 64 U/L (46-116); Anion Gap 7 (5-15); Calcium 9.2 mg/dL (8.7-10.4); Carbon Dioxide 24 mmol/L (20-30); Chloride 108 mmol/L (98-107); Glucose 83 mg/dL (74-106); Potassium 3.3 mmol/L (3.5-5.1); Sodium 139 mmol/L (136-145)
[2023-01-19 06:25] LABS: Alanine Aminotransferase 9 U/L (7-40); BUN/Creatinine Ratio 9.6 (10.0-20.0); Blood Urea Nitrogen 11 mg/dL (9-23); Magnesium 1.7 mg/dL (1.6-2.6)
[2023-01-19 06:26] LABS: Albumin 2.6 g/dL (3.2-4.8)
[2023-01-19 06:27] LABS: Aspartate Aminotransferase 19 U/L (13-40); Bilirubin, Total 0.4 mg/dL (0.2-1.0); Total Protein 5.3 g/dL (5.7-8.2)
[2023-01-19] MEDS: ACCU-CHEK COMFORT CURVE STRIP VI SCH ×5 (06:43→23:19)
[2023-01-19] MEDS: ROPINIROLE PO SCH (10:00)
[2023-01-19] MEDS: PANTOPRAZOLE 40 MG TAB PO SCH (10:38)
[2023-01-19] MEDS: ASPirin 81 mg TAB PO SCH (10:38)
[2023-01-19] MEDS: MULTIPLE VITAMIN TAB PO SCH (10:39)
[2023-01-19] MEDS: ASCORBIC ACID 500 MG TAB PO SCH ×2 (10:39→21:23)
[2023-01-19] MEDS: ZINC SULFATE 220mg CAP or TAB PO SCH (10:40)
[2023-01-19] MEDS: CLOPIDOGREL BISULFATE 75 MG TAB PO SCH (10:40)
[2023-01-19] MEDS: ENOXAPARIN SOD 100 MG/1 ML SYRINGE SC SCH ×2 (10:42→21:24)
[2023-01-19] MEDS: Ensure HIGH Protein Chocolate 8oz Bottle PO SCH ×3 (11:12→19:50)
[2023-01-19] MEDS: MIDODRINE HCL 10 MG TAB PO SCH ×2 (12:09→21:24)
[2023-01-19] MEDS ORDERED: POTASSIUM PHOSP 22MEQ(15MMOLE) in NS 100 ML IV ONE (12:30)
[2023-01-19] MEDS ORDERED: LIDOCAINE 1% (LOCAL ANESTH.) PF 5ml SDV ID ONE (14:15)
[2023-01-19] MEDS ORDERED: AMINO ACID INFUSION IN D10W 1,000 ML IV NR (20:00)
[2023-01-19] MEDS: SODIUM CHLOR 0.9% PF (SALINE LOCK) 10ML VIAL/SYR IV SCH (22:16)
[2023-01-20] VITALS (10 sets, daily range): BP systolic 92–133; BP diastolic 40–68; PULSE 76–87; RESP 16–20; TEMP 97.8–98.5; O2SAT 100
[2023-01-20] MEDS: SODIUM CHLORIDE 0.9% 1,000 ML IV SCH ×3 (05:04→20:58)
[2023-01-20] MEDS: ACCU-CHEK COMFORT CURVE STRIP VI SCH ×3 (05:24→18:44)
[2023-01-20] MEDS: InsuLIN REG 1unit/0.01ml Soln (100units/ml) SC SCH ×3 (05:24→18:00)
[2023-01-20] MEDS: ROPINIROLE PO SCH ×2 (10:00→11:30)
[2023-01-20] MEDS: ASPirin 81 mg TAB PO SCH (11:27)
[2023-01-20] MEDS: ASCORBIC ACID 500 MG TAB PO SCH ×2 (11:28→20:45)
[2023-01-20] MEDS: PANTOPRAZOLE 40 MG TAB PO SCH (11:28)
[2023-01-20] MEDS: MIDODRINE HCL 10 MG TAB PO SCH ×2 (11:28→20:45)
[2023-01-20] MEDS: CLOPIDOGREL BISULFATE 75 MG TAB PO SCH (11:28)
[2023-01-20] MEDS: MULTIPLE VITAMIN TAB PO SCH (11:28)
[2023-01-20] MEDS: SODIUM CHLOR 0.9% PF (SALINE LOCK) 10ML VIAL/SYR IV SCH ×2 (11:29→20:58)
[2023-01-20] MEDS: Ensure HIGH Protein Chocolate 8oz Bottle PO SCH ×3 (11:29→18:45)
[2023-01-20] MEDS: ZINC SULFATE 220mg CAP or TAB PO SCH (11:29)
[2023-01-20] MEDS: ENOXAPARIN SOD 100 MG/1 ML SYRINGE SC SCH ×2 (11:32→20:58)
[2023-01-20 11:58] LABS: Basophils # (auto) 0.1 10 ^3/uL (0-0.2); Eosinophils # (auto) 0.4 10 ^3/uL (0-0.8); Hematocrit 19.8 % (36.0-46.0); Lymphocytes # (auto) 2.5 10 ^3/uL (0.4-5.4); Nucleated Red Blood Cells % 0.1 %; White Blood Cell 9.1 10^3/uL (4.4-10.8)
[2023-01-20 12:00] LABS: Basophils % (auto) 0.7 % (0.0-2.0); Eosinophils % (auto) 4.6 % (0.0-7.0); Lymphocytes % (auto) 27.1 % (10.0-50.0); Mean Corpuscular Hemoglobin 28.8 pg (28.0-32.0); Mean Corpuscular Hgb Conc. 32.7 g/dL (32.0-36.0); Mean Corpuscular Volume 88.2 fL (80.0-100.0); Monocytes # (auto) 0.7 10 ^3/uL (0-1.3); Monocytes % (auto) 8.1 % (0.0-12.0); Neutrophils # (auto) 5.4 10 ^3/uL (1.6-8.6); Neutrophils % (auto) 59.5 % (37.0-80.0); Red Blood Cells 2.24 10^6/uL (4.0-5.20); Red Cell Distribution Width 18.6 % (11.8-14.3)
[2023-01-20 12:09] LABS: Hemoglobin 6.5 g/dL (12.2-16.2)
[2023-01-20 12:19] LABS: Calcium 8.3 mg/dL (8.5-10.1)
[2023-01-20 12:23] LABS: BUN/Creatinine Ratio 10.8 (10.0-20.0)
[2023-01-20 12:25] LABS: Albumin 2.3 g/dL (3.2-4.8)
[2023-01-20 12:26] LABS: Phosphorus 2.5 mg/dL (2.4-5.1)
[2023-01-20 12:29] LABS: Potassium 2.9 mmol/L (3.5-5.1)
[2023-01-20 12:54] LABS: Magnesium 1.3 mg/dL (1.6-2.6)
[2023-01-20] MEDS ORDERED: POTASSIUM CHL 20 Meq TABLET PO ONE (13:00)
[2023-01-20] MEDS: MAGNESIUM SULFATE 1GM/100ML 100 ML IV SCH ×4 (15:00→20:43)
[2023-01-20] MEDS ORDERED: diphenhdrAMINE HCL 50 MG/1 ML VL IV ONE (16:15)
[2023-01-20] MEDS ORDERED: methylPREDNISolone SOD SUCC 125 MG/2 ML VL IM ONE ×2 (16:15→16:30)
[2023-01-20 16:26] LABS: Basophils # (auto) 0 10 ^3/uL (0-0.2); Basophils % (auto) 0.4 % (0.0-2.0); Eosinophils # (auto) 0.4 10 ^3/uL (0-0.8); Hematocrit 19.1 % (36.0-46.0); Lymphocytes # (auto) 2.4 10 ^3/uL (0.4-5.4); Mean Corpuscular Hemoglobin 28.3 pg (28.0-32.0); Monocytes # (auto) 0.7 10 ^3/uL (0-1.3); Neutrophils # (auto) 5.5 10 ^3/uL (1.6-8.6)
[2023-01-20 16:27] LABS: Eosinophils % (auto) 4.3 % (0.0-7.0); Lymphocytes % (auto) 26.6 % (10.0-50.0); Mean Corpuscular Hgb Conc. 32.5 g/dL (32.0-36.0); Mean Corpuscular Volume 87.3 fL (80.0-100.0); Monocytes % (auto) 7.5 % (0.0-12.0); Neutrophils % (auto) 61.2 % (37.0-80.0); Red Blood Cells 2.19 10^6/uL (4.0-5.20); Red Cell Distribution Width 18.6 % (11.8-14.3)
[2023-01-20 16:30] LABS: Urine Bacteria NONE SEEN /hpf (None Seen); Urine Blood 2+ /uL (Negative); Urine Clarity CLOUDY (Clear); Urine Color Yellow (Yellow); Urine Protein, UAD 2+ (Negative); Urine Urobilinogen Normal (Negative); Urine WBC 3650 /hpf (0 - 5); Urine WBC Clumps PRESENT /hpf (None Seen); Urine pH 5.5 (5.0-8.0)
[2023-01-20] MEDS ORDERED: diphenhdrAMINE HCL 50 MG/1 ML VL IM ONE (16:30)
[2023-01-20 16:39] LABS: Urine Specific Gravity > 1.035 (1.001-1.035)
[2023-01-20 16:42] LABS: Hemoglobin 6.2 g/dL (12.2-16.2)
[2023-01-20] MEDS ORDERED: methylPREDNISolone SOD SUCC 125 MG/2 ML VL IV ONE (16:45)
[2023-01-20 16:46] LABS: Albumin 2.2 g/dL (3.2-4.8); Alkaline Phosphatase 54 U/L (46-116); Anion Gap 6 (5-15); Aspartate Aminotransferase 14 U/L (13-40); BUN/Creatinine Ratio 11.8 (10.0-20.0); Bilirubin, Total 0.3 mg/dL (0.2-1.0); Blood Urea Nitrogen 11 mg/dL (9-23); Calcium 8.3 mg/dL (8.7-10.4); Carbon Dioxide 25 mmol/L (20-30); Chloride 109 mmol/L (98-107); Glucose 150 mg/dL (74-106); Potassium 3.3 mmol/L (3.5-5.1); Sodium 140 mmol/L (136-145); Total Protein 4.5 g/dL (5.7-8.2)
[2023-01-20 16:52] LABS: Alanine Aminotransferase < 9 U/L (7-40)
[2023-01-20 17:03] LABS: INR 1.16 (0.9-1.15); Partial Thromboplastin Time 42.2 SEC (24.5-34.5); Prothrombin Time 12.1 sec (9.3-11.8)
[2023-01-20] MEDS ORDERED: PPN PER PHARMACY IV NR ×8 (20:00)
[2023-01-21] VITALS (8 sets, daily range): BP systolic 83–129; BP diastolic 43–83; PULSE 81–96; RESP 18–22; TEMP 98–98.9; O2SAT 91–100
[2023-01-21] MEDS: ACCU-CHEK COMFORT CURVE STRIP VI SCH ×3 (00:10→17:56)
[2023-01-21] MEDS: InsuLIN REG 1unit/0.01ml Soln (100units/ml) SC SCH ×3 (00:10→17:55)
[2023-01-21] MEDS ORDERED: SODIUM FERR GLUC 62.5MG/5ML 125 MG in SODIUM CHL 0.9% 100 ML IV ONE ×2 (00:15→07:00)
[2023-01-21 00:42] LABS: Basophils # (auto) 0 10 ^3/uL (0-0.2); Eosinophils # (auto) 0 10 ^3/uL (0-0.8); Monocytes # (auto) 0.1 10 ^3/uL (0-1.3); Monocytes % (auto) 1.1 % (0.0-12.0); White Blood Cell 10.5 10^3/uL (4.4-10.8)
[2023-01-21 00:44] LABS: Basophils % (auto) 0.2 % (0.0-2.0); Eosinophils % (auto) 0.3 % (0.0-7.0); Hematocrit 21.7 % (36.0-46.0); Lymphocytes % (auto) 9.4 % (10.0-50.0); Mean Corpuscular Hemoglobin 28.4 pg (28.0-32.0); Mean Corpuscular Hgb Conc. 32.1 g/dL (32.0-36.0); Mean Corpuscular Volume 88.6 fL (80.0-100.0); Neutrophils # (auto) 9.3 10 ^3/uL (1.6-8.6); Nucleated Red Blood Cells % 0.2 %; Red Blood Cells 2.45 10^6/uL (4.0-5.20); Red Cell Distribution Width 19.2 % (11.8-14.3)
[2023-01-21 01:01] LABS: Hemoglobin 6.9 g/dL (12.2-16.2)
[2023-01-21] MEDS: SODIUM CHLORIDE 0.9% 1,000 ML IV SCH ×3 (05:00→18:16)
[2023-01-21] MEDS: Ensure HIGH Protein Chocolate 8oz Bottle PO SCH ×3 (08:00→17:56)
[2023-01-21] MEDS: ENOXAPARIN SOD 100 MG/1 ML SYRINGE SC SCH ×2 (10:00→22:00)
[2023-01-21] MEDS ORDERED: TPN PER PHARMACY 0 ML IV SCH (10:45)
[2023-01-21] MEDS: CLOPIDOGREL BISULFATE 75 MG TAB PO SCH (10:53)
[2023-01-21] MEDS: PANTOPRAZOLE 40 MG TAB PO SCH (10:53)
[2023-01-21] MEDS: MULTIPLE VITAMIN TAB PO SCH (10:53)
[2023-01-21] MEDS: SODIUM CHLOR 0.9% PF (SALINE LOCK) 10ML VIAL/SYR IV SCH ×2 (10:53→22:00)
[2023-01-21] MEDS: ASCORBIC ACID 500 MG TAB PO SCH ×2 (10:53→23:01)
[2023-01-21] MEDS: ASPirin 81 mg TAB PO SCH (10:53)
[2023-01-21] MEDS: MIDODRINE HCL 10 MG TAB PO SCH ×2 (10:54→23:01)
[2023-01-21] MEDS: ZINC SULFATE 220mg CAP or TAB PO SCH (10:55)
[2023-01-21 12:20] LABS: Basophils # (auto) 0 10 ^3/uL (0-0.2); Eosinophils # (auto) 0 10 ^3/uL (0-0.8); Monocytes # (auto) 0.6 10 ^3/uL (0-1.3); Neutrophils # (auto) 9.3 10 ^3/uL (1.6-8.6); White Blood Cell 11.4 10^3/uL (4.4-10.8)
[2023-01-21 12:23] LABS: Basophils % (auto) 0.3 % (0.0-2.0); Hematocrit 18.8 % (36.0-46.0); Lymphocytes # (auto) 1.5 10 ^3/uL (0.4-5.4); Lymphocytes % (auto) 12.8 % (10.0-50.0); Mean Corpuscular Hemoglobin 29.6 pg (28.0-32.0); Mean Corpuscular Hgb Conc. 32.5 g/dL (32.0-36.0); Mean Corpuscular Volume 90.9 fL (80.0-100.0); Monocytes % (auto) 5.4 % (0.0-12.0); Neutrophils % (auto) 81.5 % (37.0-80.0); Nucleated Red Blood Cells % 0.2 %; Red Blood Cells 2.06 10^6/uL (4.0-5.20); Red Cell Distribution Width 19.2 % (11.8-14.3)
[2023-01-21 12:35] LABS: Hemoglobin 6.1 g/dL (12.2-16.2)
[2023-01-21] MEDS ORDERED: InsuLIN REG 1unit/0.01ml Soln (100units/ml) ONE (12:50)
[2023-01-21] MEDS: SODIUM FERR GLUC 62.5MG/5ML 125 MG in SODIUM CHL 0.9% 100 ML IV SCH (13:21)
[2023-01-21 16:18] LABS: Chloride 110 mmol/L (98-107); Potassium 4.3 mmol/L (3.5-5.1); Sodium 139 mmol/L (136-145)
[2023-01-21 16:21] LABS: Anion Gap 6 (5-15); Calcium 8.4 mg/dL (8.7-10.4); Carbon Dioxide 23 mmol/L (20-30)
[2023-01-21 16:26] LABS: Glucose 160 mg/dL (74-106)
[2023-01-21 16:27] LABS: Alkaline Phosphatase 57 U/L (46-116); BUN/Creatinine Ratio 16.1 (10.0-20.0); Blood Urea Nitrogen 14 mg/dL (9-23); Magnesium 1.6 mg/dL (1.6-2.6)
[2023-01-21 16:28] LABS: Albumin 2.5 g/dL (3.2-4.8); Aspartate Aminotransferase 13 U/L (13-40); Phosphorus 1.6 mg/dL (2.4-5.1)
[2023-01-21 16:29] LABS: Alanine Aminotransferase < 9 U/L (7-40); Bilirubin, Total 0.3 mg/dL (0.2-1.0); Total Protein 5.1 g/dL (5.7-8.2)
[2023-01-21] MEDS ORDERED: DEXTROSE (50%) 50ML SYRG IV PRN (17:45)
[2023-01-22] VITALS (9 sets, daily range): BP systolic 94–125; BP diastolic 50–70; PULSE 61–101; RESP 16–19; TEMP 98–98.7; O2SAT 94–100
[2023-01-22] MEDS: InsuLIN REG 1unit/0.01ml Soln (100units/ml) SC SCH ×2 (00:30→06:00)
[2023-01-22] MEDS: SODIUM CHLORIDE 0.9% 1,000 ML IV SCH ×3 (05:00→21:00)
[2023-01-22] MEDS: ACCU-CHEK COMFORT CURVE STRIP VI SCH ×2 (06:00)
[2023-01-22] MEDS: PANTOPRAZOLE 40 MG TAB PO SCH (09:54)
[2023-01-22] MEDS: ASPirin 81 mg TAB PO SCH (09:54)
[2023-01-22] MEDS: MIDODRINE HCL 10 MG TAB PO SCH ×2 (09:54→22:16)
[2023-01-22] MEDS: MULTIPLE VITAMIN TAB PO SCH (09:54)
[2023-01-22] MEDS: CLOPIDOGREL BISULFATE 75 MG TAB PO SCH (09:54)
[2023-01-22] MEDS: ASCORBIC ACID 500 MG TAB PO SCH ×2 (09:54→22:16)
[2023-01-22] MEDS: ZINC SULFATE 220mg CAP or TAB PO SCH (09:54)
[2023-01-22] MEDS: SODIUM CHLOR 0.9% PF (SALINE LOCK) 10ML VIAL/SYR IV SCH ×2 (09:55→22:16)
[2023-01-22] MEDS: Ensure HIGH Protein Chocolate 8oz Bottle PO SCH ×3 (09:55→18:29)
[2023-01-22] MEDS: ENOXAPARIN SOD 100 MG/1 ML SYRINGE SC SCH ×2 (10:00→22:00)
[2023-01-22] MEDS: ROPINIROLE PO SCH (10:00)
[2023-01-22] MEDS: SODIUM FERR GLUC 62.5MG/5ML 125 MG in SODIUM CHL 0.9% 100 ML IV SCH (14:06)
[2023-01-22 14:40] LABS: Basophils # (auto) 0 10 ^3/uL (0-0.2); Eosinophils # (auto) 0.3 10 ^3/uL (0-0.8); Nucleated Red Blood Cells % 0.2 %
[2023-01-22 14:42] LABS: Basophils % (auto) 0.2 % (0.0-2.0); Eosinophils % (auto) 2.9 % (0.0-7.0); Hematocrit 22.1 % (36.0-46.0); Lymphocytes % (auto) 24.8 % (10.0-50.0); Mean Corpuscular Hemoglobin 28.9 pg (28.0-32.0); Mean Corpuscular Hgb Conc. 30.7 g/dL (32.0-36.0); Mean Corpuscular Volume 94.2 fL (80.0-100.0); Monocytes # (auto) 0.9 10 ^3/uL (0-1.3); Monocytes % (auto) 7.7 % (0.0-12.0); Neutrophils # (auto) 7.8 10 ^3/uL (1.6-8.6); Neutrophils % (auto) 64.4 % (37.0-80.0); Red Blood Cells 2.35 10^6/uL (4.0-5.20); Red Cell Distribution Width 19.8 % (11.8-14.3); White Blood Cell 12.1 10^3/uL (4.4-10.8)
[2023-01-22 14:48] LABS: Hemoglobin 6.8 g/dL (12.2-16.2)
[2023-01-22 15:02] LABS: Albumin 2.6 g/dL (3.2-4.8); Alkaline Phosphatase 56 U/L (46-116); Anion Gap 6 (5-15); Aspartate Aminotransferase 21 U/L (13-40); BUN/Creatinine Ratio 12.5 (10.0-20.0); Blood Urea Nitrogen 10 mg/dL (9-23); Calcium 8.8 mg/dL (8.7-10.4); Carbon Dioxide 22 mmol/L (20-30); Chloride 113 mmol/L (98-107); Glucose 126 mg/dL (74-106); Potassium 4.5 mmol/L (3.5-5.1); Sodium 141 mmol/L (136-145)
[2023-01-22 15:03] LABS: Bilirubin, Total 0.3 mg/dL (0.2-1.0); Total Protein 5.1 g/dL (5.7-8.2)
[2023-01-22 15:04] LABS: Alanine Aminotransferase < 9 U/L (7-40)
[2023-01-23 05:00] VITALS: BP 119/62; PULSE 82; RESP 18; TEMP 98.7; O2SAT 100
[2023-01-23] MEDS: SODIUM CHLORIDE 0.9% 1,000 ML IV SCH ×3 (05:00→22:46)
[2023-01-23 08:00] VITALS: BP 133/70; PULSE 81; PULSE 84; RESP 22; TEMP 97.7; O2SAT 100
[2023-01-23 09:57] LABS: Basophils # (auto) 0 10 ^3/uL (0-0.2); Basophils % (auto) 0.2 % (0.0-2.0); Eosinophils # (auto) 0.4 10 ^3/uL (0-0.8); Lymphocytes # (auto) 2.8 10 ^3/uL (0.4-5.4); Monocytes # (auto) 0.8 10 ^3/uL (0-1.3)
[2023-01-23 10:00] LABS: Eosinophils % (auto) 3.7 % (0.0-7.0); Hematocrit 20.2 % (36.0-46.0); Lymphocytes % (auto) 26.2 % (10.0-50.0); Mean Corpuscular Hemoglobin 29.3 pg (28.0-32.0); Mean Corpuscular Hgb Conc. 32.1 g/dL (32.0-36.0); Mean Corpuscular Volume 91.1 fL (80.0-100.0); Monocytes % (auto) 7.3 % (0.0-12.0); Neutrophils # (auto) 6.6 10 ^3/uL (1.6-8.6); Neutrophils % (auto) 62.6 % (37.0-80.0); Nucleated Red Blood Cells % 0.2 %; Red Blood Cells 2.22 10^6/uL (4.0-5.20); Red Cell Distribution Width 20.2 % (11.8-14.3); White Blood Cell 10.5 10^3/uL (4.4-10.8)
[2023-01-23] MEDS: ROPINIROLE PO SCH (10:00)
[2023-01-23] MEDS: ENOXAPARIN SOD 100 MG/1 ML SYRINGE SC SCH ×2 (10:00→21:12)
[2023-01-23 10:04] LABS: Hemoglobin 6.5 g/dL (12.2-16.2)
[2023-01-23] MEDS: MULTIPLE VITAMIN TAB PO SCH (10:16)
[2023-01-23] MEDS: Ensure HIGH Protein Chocolate 8oz Bottle PO SCH ×3 (10:16→18:54)
[2023-01-23] MEDS: PANTOPRAZOLE 40 MG TAB PO SCH (10:16)
[2023-01-23] MEDS: ZINC SULFATE 220mg CAP or TAB PO SCH (10:16)
[2023-01-23] MEDS: ASPirin 81 mg TAB PO SCH (10:16)
[2023-01-23] MEDS: SODIUM CHLOR 0.9% PF (SALINE LOCK) 10ML VIAL/SYR IV SCH ×2 (10:16→22:44)
[2023-01-23] MEDS: ASCORBIC ACID 500 MG TAB PO SCH ×2 (10:16→21:12)
[2023-01-23] MEDS: CLOPIDOGREL BISULFATE 75 MG TAB PO SCH (10:16)
[2023-01-23] MEDS: MIDODRINE HCL 10 MG TAB PO SCH ×2 (10:17→21:12)
[2023-01-23 10:20] LABS: Alanine Aminotransferase 11 U/L (7-40); Albumin 2.7 g/dL (3.2-4.8); Alkaline Phosphatase 58 U/L (46-116); Anion Gap 6 (5-15); Aspartate Aminotransferase 21 U/L (13-40); BUN/Creatinine Ratio 15.1 (10.0-20.0); Bilirubin, Total 0.3 mg/dL (0.2-1.0); Blood Urea Nitrogen 11 mg/dL (9-23); Calcium 9.4 mg/dL (8.5-10.1); Carbon Dioxide 23 mmol/L (20-30); Chloride 114 mmol/L (98-107); Glucose 109 mg/dL (74-106); Potassium 4.7 mmol/L (3.5-5.1); Sodium 143 mmol/L (136-145); Total Protein 5.3 g/dL (5.7-8.2)
[2023-01-23 12:00] VITALS: BP 124/65; PULSE 79; RESP 20; TEMP 97.7; O2SAT 100
[2023-01-23] MEDS: SODIUM FERR GLUC 62.5MG/5ML 125 MG in SODIUM CHL 0.9% 100 ML IV SCH (13:14)
[2023-01-23 16:00] VITALS: BP 107/79; PULSE 90; RESP 20; TEMP 98.2; O2SAT 98
[2023-01-23 20:30] VITALS: PULSE 85; PULSE 89; RESP 16; O2SAT 100
[2023-01-23 22:00] VITALS: BP 110/46; PULSE 89; RESP 16; TEMP 98.3; O2SAT 100
[2023-01-24] VITALS (7 sets, daily range): BP systolic 100–120; BP diastolic 56–77; PULSE 66–124; RESP 16–21; TEMP 97.4–99; O2SAT 98–100
[2023-01-24] MEDS: SODIUM CHLORIDE 0.9% 1,000 ML IV SCH ×2 (06:18→21:00)
[2023-01-24] MEDS: ENOXAPARIN SOD 100 MG/1 ML SYRINGE SC SCH ×2 (09:52→22:47)
[2023-01-24] MEDS: MIDODRINE HCL 10 MG TAB PO SCH ×2 (09:53→22:44)
[2023-01-24] MEDS: Ensure HIGH Protein Chocolate 8oz Bottle PO SCH ×3 (09:54→22:50)
[2023-01-24] MEDS: PANTOPRAZOLE 40 MG TAB PO SCH (09:54)
[2023-01-24] MEDS: MULTIPLE VITAMIN TAB PO SCH (09:54)
[2023-01-24] MEDS: CLOPIDOGREL BISULFATE 75 MG TAB PO SCH (09:54)
[2023-01-24] MEDS: ASCORBIC ACID 500 MG TAB PO SCH ×2 (09:54→22:44)
[2023-01-24] MEDS: ZINC SULFATE 220mg CAP or TAB PO SCH (09:54)
[2023-01-24] MEDS: ASPirin 81 mg TAB PO SCH (09:54)
[2023-01-24] MEDS: SODIUM CHLOR 0.9% PF (SALINE LOCK) 10ML VIAL/SYR IV SCH ×2 (09:54→21:20)
[2023-01-24] MEDS: ROPINIROLE PO SCH (10:00)
[2023-01-24 10:46] LABS: Basophils # (auto) 0 10 ^3/uL (0-0.2); Eosinophils # (auto) 0.5 10 ^3/uL (0-0.8); Hematocrit 23.1 % (36.0-46.0); Monocytes # (auto) 0.7 10 ^3/uL (0-1.3); Red Blood Cells 2.44 10^6/uL (4.0-5.20)
[2023-01-24 10:49] LABS: Basophils % (auto) 0.2 % (0.0-2.0); Eosinophils % (auto) 4.8 % (0.0-7.0); Hemoglobin 7.2 g/dL (12.2-16.2); Lymphocytes # (auto) 2.2 10 ^3/uL (0.4-5.4); Lymphocytes % (auto) 22.3 % (10.0-50.0); Mean Corpuscular Hemoglobin 29.5 pg (28.0-32.0); Mean Corpuscular Hgb Conc. 31.3 g/dL (32.0-36.0); Mean Corpuscular Volume 94.4 fL (80.0-100.0); Monocytes % (auto) 7.4 % (0.0-12.0); Neutrophils # (auto) 6.5 10 ^3/uL (1.6-8.6); Neutrophils % (auto) 65.3 % (37.0-80.0); Nucleated Red Blood Cells % 0.3 %; White Blood Cell 9.9 10^3/uL (4.4-10.8)
[2023-01-24 10:52] LABS: Red Cell Distribution Width 20.7 % (11.8-14.3)
[2023-01-24 11:00] LABS: Alanine Aminotransferase 16 U/L (7-40); Alkaline Phosphatase 69 U/L (46-116); Anion Gap 5 (5-15); Aspartate Aminotransferase 27 U/L (13-40); BUN/Creatinine Ratio 12.2 (10.0-20.0); Blood Urea Nitrogen 9 mg/dL (9-23); Calcium 9.7 mg/dL (8.5-10.1); Carbon Dioxide 23 mmol/L (20-30); Chloride 115 mmol/L (98-107); Glucose 127 mg/dL (74-106); Potassium 4.4 mmol/L (3.5-5.1); Sodium 143 mmol/L (136-145)
[2023-01-24 11:01] LABS: Albumin 2.9 g/dL (3.2-4.8); Bilirubin, Total 0.3 mg/dL (0.2-1.0); Total Protein 5.7 g/dL (5.7-8.2)
[2023-01-24] MEDS: SODIUM FERR GLUC 62.5MG/5ML 125 MG in SODIUM CHL 0.9% 100 ML IV SCH (12:53)
[2023-01-25] VITALS (8 sets, daily range): BP systolic 125–141; BP diastolic 54–75; PULSE 75–100; RESP 18–21; TEMP 98.5–98.9; O2SAT 95–100
[2023-01-25] MEDS: SODIUM CHLORIDE 0.9% 1,000 ML IV SCH ×4 (05:00→21:49)
[2023-01-25 06:53] LABS: Alanine Aminotransferase 15 U/L (7-40); Albumin 2.7 g/dL (3.2-4.8); Alkaline Phosphatase 77 U/L (46-116); Anion Gap 5 (5-15); Aspartate Aminotransferase 26 U/L (13-40); BUN/Creatinine Ratio 14.1 (10.0-20.0); Blood Urea Nitrogen 10 mg/dL (9-23); Calcium 9.7 mg/dL (8.7-10.4); Carbon Dioxide 23 mmol/L (20-30); Chloride 115 mmol/L (98-107); Glucose 95 mg/dL (74-106); Potassium 4.3 mmol/L (3.5-5.1); Sodium 143 mmol/L (136-145)
[2023-01-25 06:54] LABS: Bilirubin, Total 0.4 mg/dL (0.2-1.0); Total Protein 5.3 g/dL (5.7-8.2)
[2023-01-25] MEDS: SODIUM CHLOR 0.9% PF (SALINE LOCK) 10ML VIAL/SYR IV SCH ×2 (07:32→21:37)
[2023-01-25] MEDS: Ensure HIGH Protein Chocolate 8oz Bottle PO SCH ×3 (08:30→18:40)
[2023-01-25 08:31] LABS: Basophils # (auto) 0.1 10 ^3/uL (0-0.2); Basophils % (auto) 0.5 % (0.0-2.0); Eosinophils # (auto) 0.4 10 ^3/uL (0-0.8); Eosinophils % (auto) 4.1 % (0.0-7.0); Hematocrit 19.9 % (36.0-46.0); Lymphocytes # (auto) 2.5 10 ^3/uL (0.4-5.4); Lymphocytes % (auto) 25.9 % (10.0-50.0); Mean Corpuscular Hgb Conc. 32.8 g/dL (32.0-36.0); Mean Corpuscular Volume 91.6 fL (80.0-100.0); Monocytes # (auto) 0.8 10 ^3/uL (0-1.3); Monocytes % (auto) 8.3 % (0.0-12.0); Neutrophils # (auto) 5.9 10 ^3/uL (1.6-8.6); Neutrophils % (auto) 61.2 % (37.0-80.0); Nucleated Red Blood Cells % 0.4 %; Red Blood Cells 2.17 10^6/uL (4.0-5.20); Red Cell Distribution Width 20.7 % (11.8-14.3); White Blood Cell 9.6 10^3/uL (4.4-10.8)
[2023-01-25 08:32] LABS: Hemoglobin 6.5 g/dL (12.2-16.2)
[2023-01-25 08:47] LABS: INR 1.09 (0.9-1.15); Prothrombin Time 11.4 sec (9.3-11.8)
[2023-01-25] MEDS: ROPINIROLE PO SCH (10:00)
[2023-01-25] MEDS: ENOXAPARIN SOD 100 MG/1 ML SYRINGE SC SCH ×3 (10:00→21:42)
[2023-01-25] MEDS: MIDODRINE HCL 10 MG TAB PO SCH ×3 (11:28→21:42)
[2023-01-25] MEDS: ZINC SULFATE 220mg CAP or TAB PO SCH (11:28)
[2023-01-25] MEDS: CLOPIDOGREL BISULFATE 75 MG TAB PO SCH (11:29)
[2023-01-25] MEDS: MULTIPLE VITAMIN TAB PO SCH (11:29)
[2023-01-25] MEDS: PANTOPRAZOLE 40 MG TAB PO SCH (11:30)
[2023-01-25] MEDS: ASCORBIC ACID 500 MG TAB PO SCH ×3 (11:31→21:42)
[2023-01-25] MEDS: ASPirin 81 mg TAB PO SCH (11:31)
[2023-01-25] MEDS: SODIUM FERR GLUC 62.5MG/5ML 125 MG in SODIUM CHL 0.9% 100 ML IV SCH (11:54)
[2023-01-25] MEDS ORDERED: LIDOCAINE 1% (LOCAL ANESTH.) PF 5ml SDV ID ONE ×2 (13:30→13:45)
[2023-01-25] MEDS ORDERED: LEVALBUTEROL HCL 1.25 MG/3 ML NEB NEB SCH (18:00)
[2023-01-25] MEDS ORDERED: SODIUM CHLOR 0.9% PF (SALINE LOCK) 10ML VIAL/SYR IV SCH (22:00)
[2023-01-26 04:56] VITALS: BP 128/63; PULSE 84; RESP 19; TEMP 98.7; O2SAT 99
[2023-01-26 08:00] VITALS: PULSE 73
[2023-01-26] MEDS: Ensure HIGH Protein Chocolate 8oz Bottle PO SCH ×2 (08:00→12:00)
[2023-01-26 09:29] VITALS: BP 124/61; PULSE 86; RESP 18; TEMP 97.9; O2SAT 94
[2023-01-26] MEDS ORDERED: VANCOMYCIN 1GM/250ML 250 ML IV ONE (09:30)
[2023-01-26] MEDS: SODIUM CHLOR 0.9% PF (SALINE LOCK) 10ML VIAL/SYR IV SCH (09:48)
[2023-01-26] MEDS: PANTOPRAZOLE 40 MG TAB PO SCH (09:49)
[2023-01-26] MEDS: ASPirin 81 mg TAB PO SCH (09:49)
[2023-01-26] MEDS: ZINC SULFATE 220mg CAP or TAB PO SCH (09:50)
[2023-01-26] MEDS: CLOPIDOGREL BISULFATE 75 MG TAB PO SCH (09:50)
[2023-01-26] MEDS: MULTIPLE VITAMIN TAB PO SCH (09:50)
[2023-01-26] MEDS: ROPINIROLE PO SCH (09:51)
[2023-01-26] MEDS ORDERED: ASCORBIC ACID 500 MG TAB PO SCH (10:08)
[2023-01-26] MEDS ORDERED: ENOXAPARIN SOD 100 MG/1 ML SYRINGE SC SCH (10:09)
[2023-01-26] MEDS ORDERED: MIDODRINE HCL 10 MG TAB PO SCH (10:09)
[2023-01-26 12:54] VITALS: BP 98/53; PULSE 81; RESP 21; TEMP 97.9; O2SAT 97
[2023-01-26] MEDS: SODIUM CHLORIDE 0.9% 1,000 ML IV SCH (13:00)
[2023-01-26 13:46] LABS: Basophils # (auto) 0.1 10 ^3/uL (0-0.2); Basophils % (auto) 0.6 % (0.0-2.0); Eosinophils # (auto) 0.4 10 ^3/uL (0-0.8); Eosinophils % (auto) 4.4 % (0.0-7.0); Hematocrit 21.4 % (36.0-46.0); Lymphocytes # (auto) 2.2 10 ^3/uL (0.4-5.4); Lymphocytes % (auto) 23.5 % (10.0-50.0); Mean Corpuscular Hemoglobin 29.2 pg (28.0-32.0); Mean Corpuscular Hgb Conc. 31.8 g/dL (32.0-36.0); Mean Corpuscular Volume 91.8 fL (80.0-100.0); Monocytes # (auto) 0.8 10 ^3/uL (0-1.3); Monocytes % (auto) 8.3 % (0.0-12.0); Neutrophils % (auto) 63.2 % (37.0-80.0); Nucleated Red Blood Cells % 0.3 %; Red Blood Cells 2.33 10^6/uL (4.0-5.20); White Blood Cell 9.5 10^3/uL (4.4-10.8)
[2023-01-26 13:47] LABS: Red Cell Distribution Width 21.7 % (11.8-14.3)
[2023-01-26 13:48] LABS: Hemoglobin 6.8 g/dL (12.2-16.2)
[2023-01-26 15:11] LABS: Alanine Aminotransferase 13 U/L (7-40); Albumin 2.7 g/dL (3.2-4.8); Alkaline Phosphatase 72 U/L (46-116); Anion Gap 6 (5-15); Aspartate Aminotransferase 25 U/L (13-40); BUN/Creatinine Ratio 7.9 (10.0-20.0); Blood Urea Nitrogen 6 mg/dL (9-23); Calcium 9.8 mg/dL (8.5-10.1); Carbon Dioxide 21 mmol/L (20-30); Chloride 114 mmol/L (98-107); Glucose 95 mg/dL (74-106); Potassium 4.5 mmol/L (3.5-5.1); Sodium 141 mmol/L (136-145)
[2023-01-26 15:12] LABS: Bilirubin, Total 0.3 mg/dL (0.2-1.0); Total Protein 5.3 g/dL (5.7-8.2)
[2023-01-26] MEDS: SODIUM FERR GLUC 62.5MG/5ML 125 MG in SODIUM CHL 0.9% 100 ML IV SCH (16:21)
[2023-01-26 16:37] VITALS: BP 106/50; PULSE 81; RESP 20; TEMP 97.9; O2SAT 100
[2023-01-27] MEDS ORDERED: VANCOMYCIN 1GM/250ML 250 ML IV SCH (10:00)
== END 2023-01-26 17:30 | DRG 857 ==
LOC: ER 09:50 → EDBD 09:50 → TELE 14:20 → TELE-EAST 23:18
PROVIDERS: ADMIT Nurse Practitioner Family; ATTEND Family Medicine
PROC: 047K3ZZ Dilation of Right Femoral Artery, Percutaneous Approach (ICD-10-PCS; principal; 2023-01-12)
PROC: 047M3ZZ Dilation of Right Popliteal Artery, Percutaneous Approach (ICD-10-PCS; 2023-01-12)
PROC: B41FYZZ Fluoroscopy of Right Lower Extremity Arteries using Other Contrast (ICD-10-PCS; 2023-01-12)
PROC: 05HA33Z Insertion of Infusion Device into Left Brachial Vein, Percutaneous Approach (ICD-10-PCS; 2023-01-17)
PROC: B54NZZA Ultrasonography of Left Upper Extremity Veins, Guidance (ICD-10-PCS; 2023-01-17)
PROC: 02HV33Z Insertion of Infusion Device into Superior Vena Cava, Percutaneous Approach (ICD-10-PCS; 2023-01-19)
PROC: B548ZZA Ultrasonography of Superior Vena Cava, Guidance (ICD-10-PCS; 2023-01-19)
PROC: 30233N1 Transfusion of Nonautologous Red Blood Cells into Peripheral Vein, Percutaneous Approach (ICD-10-PCS; 2023-01-20)
PROC: 02H633Z Insertion of Infusion Device into Right Atrium, Percutaneous Approach (ICD-10-PCS; 2023-01-25)
PROC: B548ZZA Ultrasonography of Superior Vena Cava, Guidance (ICD-10-PCS; 2023-01-25)
DX: T81.49XA Infection following a procedure, other surgical site, initial encounter (principal); E87.1 Hypo-osmolality and hyponatremia; L03.115 Cellulitis of right lower limb; N39.0 Urinary tract infection, site not specified; N17.9 Acute kidney failure, unspecified; L97.819 Non-pressure chronic ulcer of other part of right lower leg with unspecified severity; L97.919 Non-pressure chronic ulcer of unspecified part of right lower leg with unspecified severity; T80.61XA Other serum reaction due to administration of blood and blood products, initial encounter; L03.116 Cellulitis of left lower limb; E66.01 Morbid (severe) obesity due to excess calories; E87.6 Hypokalemia; E11.22 Type 2 diabetes mellitus with diabetic chronic kidney disease; E11.51 Type 2 diabetes mellitus with diabetic peripheral angiopathy without gangrene; F03.C0 Unspecified dementia, severe, without behavioral disturbance, psychotic disturbance, mood disturbance, and anxiety; N18.31 Chronic kidney disease, stage 3a; E78.5 Hyperlipidemia, unspecified; B95.62 Methicillin resistant Staphylococcus aureus infection as the cause of diseases classified elsewhere; G89.29 Other chronic pain; I12.9 Hypertensive chronic kidney disease with stage 1 through stage 4 chronic kidney disease, or unspecified chronic kidney disease; K21.9 Gastro-esophageal reflux disease without esophagitis; S81.801A Unspecified open wound, right lower leg, initial encounter; I87.2 Venous insufficiency (chronic) (peripheral); X58.XXXA Exposure to other specified factors, initial encounter; Z86.73 Personal history of transient ischemic attack (TIA), and cerebral infarction without residual deficits; Y93.89 Activity, other specified; Z74.01 Bed confinement status; Z83.3 Family history of diabetes mellitus; Z86.711 Personal history of pulmonary embolism; Y92.89 Other specified places as the place of occurrence of the external cause; Y99.8 Other external cause status; Z91.199 Patient's noncompliance with other medical treatment and regimen due to unspecified reason; D69.6 Thrombocytopenia, unspecified; Y84.8 Other medical procedures as the cause of abnormal reaction of the patient, or of later complication, without mention of misadventure at the time of the procedure
CPT/HCPCS: 36415; 36569; 37224; 71045; 73610; 73706; 75630; 75710; 76775; 76942; 80048; 80053; 80061; 80069; 80202; 81001; 82306; 82565; 82570; 82962; 83036; 83605; 83735; 83970; 84100; 84132; 84156; 84300; 84443; 84478; 85025; 85610; 85652; 85730; 86141; 86850; 86900; 86901; 86920; 87040; 87077; 87081; 87086; 87088; 87186; 87205; 93005; 93926; 97110; 97163; 97530; 99152; 99153; C1769; G0378; J1815; J2250; J2543; J3480; J7060; Q9967

== ENCOUNTER 2023-01-27 07:32 | Inpatient (IN) | payer BC, MEDICAID ==
[~2023-01-27] VITALS: Ht 147.3 cm; Wt 107.1 kg
[~2023-01-27 07:32] MED LIST changes: -AMLO1TAB23 PO; +APIX5TAB PO; -CHOL500035 PO; -CLON0.1T PO; +CLOP75TA28 PO; +FURO20TA3 PO; -HYDR-4798 PO; -HYDR25TA5 PO; -LATA0.008 EACHEYE; -LISI20TA56 PO; +MEMA1TAB5 PO; -METF-929 PO; +MIDO5TAB4 PO; -POTA10TA51 PO; -ROPI12TA2 PO; -SIMV20TA20 PO; -TELM80TA PO; -VALS160T6 PO
[2023-01-27 09:27] LABS: Basophils # (auto) 0 10 ^3/uL (0-0.2); Basophils % (auto) 0.4 % (0.0-2.0); Eosinophils # (auto) 0.4 10 ^3/uL (0-0.8); Mean Corpuscular Hemoglobin 29.9 pg (28.0-32.0); Monocytes % (auto) 8.4 % (0.0-12.0); Nucleated Red Blood Cells % 0.1 %
[2023-01-27 09:28] LABS: Eosinophils % (auto) 4.1 % (0.0-7.0); Hematocrit 21.6 % (36.0-46.0); Lymphocytes # (auto) 2.2 10 ^3/uL (0.4-5.4); Mean Corpuscular Hgb Conc. 31.9 g/dL (32.0-36.0); Mean Corpuscular Volume 93.7 fL (80.0-100.0); Monocytes # (auto) 0.8 10 ^3/uL (0-1.3); Neutrophils # (auto) 5.7 10 ^3/uL (1.6-8.6); Neutrophils % (auto) 63.1 % (37.0-80.0); Red Blood Cells 2.31 10^6/uL (4.0-5.20); Red Cell Distribution Width 22.1 % (11.8-14.3); White Blood Cell 9.1 10^3/uL (4.4-10.8)
[2023-01-27 09:30] LABS: Hemoglobin 6.9 g/dL (12.2-16.2)
[2023-01-27 09:41] LABS: Alanine Aminotransferase 13 U/L (7-40); Albumin 2.9 g/dL (3.2-4.8); Alkaline Phosphatase 76 U/L (46-116); Anion Gap 6 (5-15); Aspartate Aminotransferase 22 U/L (13-40); BUN/Creatinine Ratio 8.1 (10.0-20.0); Bilirubin, Total 0.5 mg/dL (0.2-1.0); Blood Urea Nitrogen 6 mg/dL (9-23); Calcium 9.9 mg/dL (8.5-10.1); Carbon Dioxide 23 mmol/L (20-30); Chloride 113 mmol/L (98-107); Glucose 84 mg/dL (74-106); Potassium 4.1 mmol/L (3.5-5.1); Sodium 142 mmol/L (136-145); Total Protein 5.7 g/dL (5.7-8.2)
[2023-01-27 10:20] VITALS: PULSE 91; RESP 24; O2SAT 95
[2023-01-27 10:24] LABS: INR 1.04 (0.9-1.15); Partial Thromboplastin Time < 20.0 SEC (24.5-34.5); Prothrombin Time 10.9 sec (9.3-11.8)
[2023-01-27] MEDS ORDERED: LIDOCAINE 1% (LOCAL ANESTH.) PF 5ml SDV ID ONE (13:45)
[2023-01-27 14:39] LABS: Basophils # (auto) 0.1 10 ^3/uL (0-0.2); Eosinophils # (auto) 0.3 10 ^3/uL (0-0.8); Monocytes # (auto) 0.7 10 ^3/uL (0-1.3); Monocytes % (auto) 8.9 % (0.0-12.0); Neutrophils # (auto) 5.1 10 ^3/uL (1.6-8.6); White Blood Cell 8.2 10^3/uL (4.4-10.8)
[2023-01-27 14:41] LABS: Basophils % (auto) 0.9 % (0.0-2.0); Eosinophils % (auto) 4.2 % (0.0-7.0); Hematocrit 19.5 % (36.0-46.0); Lymphocytes % (auto) 24.3 % (10.0-50.0); Mean Corpuscular Hemoglobin 29.8 pg (28.0-32.0); Mean Corpuscular Hgb Conc. 32.5 g/dL (32.0-36.0); Mean Corpuscular Volume 91.8 fL (80.0-100.0); Neutrophils % (auto) 61.7 % (37.0-80.0); Nucleated Red Blood Cells % 0.2 %; Red Blood Cells 2.12 10^6/uL (4.0-5.20)
[2023-01-27 15:03] LABS: Red Cell Distribution Width 21.3 % (11.8-14.3)
[2023-01-27 15:04] LABS: Hemoglobin 6.3 g/dL (12.2-16.2)
[2023-01-27 15:56] VITALS: BP 152/53; PULSE 96; RESP 19; TEMP 98.6
[2023-01-27 16:19] VITALS: BP 127/79; PULSE 93; RESP 16; TEMP 98.5
[2023-01-27 17:19] VITALS: BP 116/63; PULSE 90; RESP 18; TEMP 99.1
[2023-01-27 18:39] VITALS: BP 140/60; PULSE 90; RESP 18; TEMP 98.8
[2023-01-27] MEDS ORDERED: VANCOMYCIN 1GM/250ML 250 ML IV ONE (19:30)
[2023-01-27 19:40] VITALS: PULSE 91; RESP 21; O2SAT 100
[2023-01-27] MEDS: SODIUM CHLOR 0.9% PF (SALINE LOCK) 10ML VIAL/SYR IV SCH (21:53)
[2023-01-28] MEDS ORDERED: HYDROcodone-ACET 5/325MG TAB PO ONE (02:00)
[2023-01-28 07:28] VITALS: PULSE 86; RESP 20; O2SAT 100
[2023-01-28] MEDS: SODIUM CHLOR 0.9% PF (SALINE LOCK) 10ML VIAL/SYR IV SCH ×2 (09:42→22:07)
[2023-01-28] MEDS ORDERED: VANCOMYCIN PER PHARMACY 0 MG IV SCH (15:30)
[2023-01-28 21:30] VITALS: PULSE 90; RESP 19; O2SAT 100
[2023-01-28] MEDS: VANCOMYCIN 1GM/250ML 250 ML IV SCH (22:07)
[2023-01-29] MEDS: SODIUM CHLOR 0.9% PF (SALINE LOCK) 10ML VIAL/SYR IV SCH ×2 (10:27→22:00)
[2023-01-29 17:07] LABS: Basophils # (auto) 0.1 10 ^3/uL (0-0.2); Basophils % (auto) 0.9 % (0.0-2.0); Eosinophils # (auto) 0.4 10 ^3/uL (0-0.8); Eosinophils % (auto) 3.6 % (0.0-7.0); Hematocrit 28.1 % (36.0-46.0); Hemoglobin 9.3 g/dL (12.2-16.2); Lymphocytes # (auto) 2.2 10 ^3/uL (0.4-5.4); Lymphocytes % (auto) 22.1 % (10.0-50.0); Mean Corpuscular Hemoglobin 29.9 pg (28.0-32.0); Mean Corpuscular Volume 90.8 fL (80.0-100.0); Monocytes # (auto) 0.9 10 ^3/uL (0-1.3); Monocytes % (auto) 8.9 % (0.0-12.0); Neutrophils # (auto) 6.5 10 ^3/uL (1.6-8.6); Neutrophils % (auto) 64.5 % (37.0-80.0); Nucleated Red Blood Cells % 0.1 %; Red Blood Cells 3.09 10^6/uL (4.0-5.20)
[2023-01-29 17:08] LABS: Red Cell Distribution Width 20.1 % (11.8-14.3)
[2023-01-29] MEDS ORDERED: FUROSEMIDE 40 MG/4 ML VIAL IV ONE (17:15)
[2023-01-29] MEDS ORDERED: VANCOMYCIN PER PHARMACY 0 MG IV SCH (17:15)
[2023-01-29] MEDS ORDERED: ONDANSETRON HCL 4 MG/2 ML VIAL IV PRN (17:15)
[2023-01-29] MEDS ORDERED: ENOXAPARIN SOD 40 MG/0.4 ML SYRINGE SC SCH (17:15)
[2023-01-29] MEDS ORDERED: DEXTROSE (50%) 50ML SYRG IV PRN (17:15)
[2023-01-29] MEDS ORDERED: MORPHINE SULFATE INJ 2 MG/ml SYRG IV PRN (17:15)
[2023-01-29] MEDS ORDERED: DOCUSATE SOD 100 MG CAP PO PRN (17:15)
[2023-01-29 17:24] LABS: Alanine Aminotransferase 18 U/L (7-40); Alkaline Phosphatase 83 U/L (46-116); Anion Gap 7 (5-15); Aspartate Aminotransferase 30 U/L (13-40); Bilirubin, Total 0.6 mg/dL (0.2-1.0); Calcium 9.7 mg/dL (8.5-10.1); Carbon Dioxide 27 mmol/L (20-30); Chloride 109 mmol/L (98-107); Glucose 89 mg/dL (74-106); Potassium 3.6 mmol/L (3.5-5.1); Sodium 143 mmol/L (136-145); Total Protein 6.1 g/dL (5.7-8.2)
[2023-01-29 17:32] LABS: BUN/Creatinine Ratio 6.8 (10.0-20.0); Blood Urea Nitrogen < 5 mg/dL (9-23)
[2023-01-29 20:00] VITALS: PULSE 108; RESP 16; O2SAT 97
[2023-01-29] MEDS: VANCOMYCIN 1GM/250ML 250 ML IV SCH (20:00)
[2023-01-29] MEDS ORDERED: NYSTATIN TOPICAL POWDER 15GM TOP SCH (22:00)
[2023-01-29] MEDS: NYSTATIN-TRIAMCINOLONE TOPICAL CRE 15GM TOP SCH (22:00)
[2023-01-29] MEDS ORDERED: APIXABAN 5 MG TAB PO SCH (22:00)
[2023-01-29] MEDS: ACCU-CHEK COMFORT CURVE STRIP VI SCH (22:00)
[2023-01-29] MEDS: TIMOLOL MAL 0.5% OPTH(EYE) SOL 5ML EACHEYE SCH (22:00)
[2023-01-29] MEDS: MEMANTINE HCL 5 MG TAB PO SCH (22:00)
[2023-01-29] MEDS: InsuLIN REG 1unit/0.01ml Soln (100units/ml) SC SCH (22:00)
[2023-01-30 01:55] VITALS: BP 154/77; PULSE 110; PULSE 119; RESP 18; RESP 20; TEMP 98.7; O2SAT 97
[2023-01-30 05:00] VITALS: BP 124/74; PULSE 113; RESP 17; TEMP 98.1; O2SAT 97
[2023-01-30] MEDS: InsuLIN REG 1unit/0.01ml Soln (100units/ml) SC SCH ×4 (06:51→22:00)
[2023-01-30] MEDS: ACCU-CHEK COMFORT CURVE STRIP VI SCH ×4 (06:51→22:00)
[2023-01-30 07:32] LABS: Basophils # (auto) 0.1 10 ^3/uL (0-0.2); Basophils % (auto) 1.2 % (0.0-2.0); Eosinophils # (auto) 0.3 10 ^3/uL (0-0.8); Eosinophils % (auto) 3.1 % (0.0-7.0); Hematocrit 28.5 % (36.0-46.0); Hemoglobin 9.2 g/dL (12.2-16.2); Lymphocytes # (auto) 2.1 10 ^3/uL (0.4-5.4); Lymphocytes % (auto) 23.1 % (10.0-50.0); Mean Corpuscular Hgb Conc. 32.1 g/dL (32.0-36.0); Mean Corpuscular Volume 93.3 fL (80.0-100.0); Monocytes # (auto) 0.8 10 ^3/uL (0-1.3); Monocytes % (auto) 8.7 % (0.0-12.0); Neutrophils # (auto) 5.7 10 ^3/uL (1.6-8.6); Neutrophils % (auto) 63.9 % (37.0-80.0); Nucleated Red Blood Cells % 0.1 %; Red Blood Cells 3.05 10^6/uL (4.0-5.20); White Blood Cell 8.9 10^3/uL (4.4-10.8)
[2023-01-30 07:48] LABS: Alanine Aminotransferase 13 U/L (7-40); Albumin 2.7 g/dL (3.2-4.8); Alkaline Phosphatase 77 U/L (46-116); Anion Gap 8 (5-15); Aspartate Aminotransferase 22 U/L (13-40); Bilirubin, Total 0.6 mg/dL (0.2-1.0); Carbon Dioxide 26 mmol/L (20-30); Chloride 109 mmol/L (98-107); Glucose 86 mg/dL (74-106); Potassium 3.4 mmol/L (3.5-5.1); Sodium 143 mmol/L (136-145); Total Protein 5.5 g/dL (5.7-8.2)
[2023-01-30 07:51] LABS: BUN/Creatinine Ratio 7.5 (10.0-20.0); Blood Urea Nitrogen < 5 mg/dL (9-23); Red Cell Distribution Width 20.7 % (11.8-14.3)
[2023-01-30] MEDS: CLOPIDOGREL BISULFATE 75 MG TAB PO SCH (10:00)
[2023-01-30] MEDS: SODIUM CHLOR 0.9% PF (SALINE LOCK) 10ML VIAL/SYR IV SCH ×2 (10:00→22:06)
[2023-01-30] MEDS: TIMOLOL MAL 0.5% OPTH(EYE) SOL 5ML EACHEYE SCH ×2 (10:00→22:00)
[2023-01-30] MEDS ORDERED: FUROSEMIDE 20 MG TAB PO SCH (10:00)
[2023-01-30] MEDS ORDERED: FUROSEMIDE 20 MG/2 ML VIAL IV ONE (10:15)
[2023-01-30] MEDS ORDERED: POTASSIUM CHL 20 Meq TABLET PO ONE (10:15)
[2023-01-30] MEDS: PANTOPRAZOLE 40 MG TAB PO SCH (11:31)
[2023-01-30] MEDS: ASPirin-EC 81 mg tab PO SCH (11:32)
[2023-01-30] MEDS: MEMANTINE HCL 5 MG TAB PO SCH ×2 (11:32→22:05)
[2023-01-30 17:00] VITALS: BP 126/63; PULSE 112; RESP 18; TEMP 98.7; O2SAT 98
[2023-01-30 17:21] LABS: Urine Bacteria FEW /hpf (None Seen); Urine Blood Negative /uL (Negative); Urine Clarity HAZY (Clear); Urine Color Colorless (Yellow); Urine Mucus FEW (None Seen); Urine Protein, UAD Negative (Negative); Urine Specific Gravity 1.008 (1.001-1.035); Urine Urobilinogen Normal (Negative); Urine WBC 184 /hpf (0 - 5); Urine WBC Clumps PRESENT /hpf (None Seen); Urine pH 6.5 (5.0-8.0)
[2023-01-30] MEDS: NYSTATIN-TRIAMCINOLONE TOPICAL CRE 15GM TOP SCH ×2 (17:30→22:05)
[2023-01-30 20:00] VITALS: PULSE 94; RESP 18; O2SAT 98
[2023-01-30 20:12] LABS: INR 1.04 (0.9-1.15); Partial Thromboplastin Time 25.4 SEC (24.5-34.5); Prothrombin Time 10.9 sec (9.3-11.8)
[2023-01-30] MEDS: VANCOMYCIN 1GM/250ML 250 ML IV SCH (20:32)
[2023-01-30 21:37] VITALS: BP 113/87; PULSE 16; RESP 16; TEMP 98.4; O2SAT 98
[2023-01-31 05:00] VITALS: BP 105/67; PULSE 103; RESP 18; TEMP 98.9; O2SAT 90
[2023-01-31 05:58] LABS: Basophils # (auto) 0.1 10 ^3/uL (0-0.2); Basophils % (auto) 0.8 % (0.0-2.0); Eosinophils # (auto) 0.3 10 ^3/uL (0-0.8); Eosinophils % (auto) 2.5 % (0.0-7.0); Hematocrit 26.5 % (36.0-46.0); Hemoglobin 8.7 g/dL (12.2-16.2); Lymphocytes % (auto) 20.1 % (10.0-50.0); Mean Corpuscular Hemoglobin 30.2 pg (28.0-32.0); Mean Corpuscular Volume 91.6 fL (80.0-100.0); Monocytes # (auto) 0.7 10 ^3/uL (0-1.3); Monocytes % (auto) 6.8 % (0.0-12.0); Neutrophils # (auto) 7.1 10 ^3/uL (1.6-8.6); Neutrophils % (auto) 69.8 % (37.0-80.0); Nucleated Red Blood Cells % 0.1 %; Red Blood Cells 2.89 10^6/uL (4.0-5.20); Red Cell Distribution Width 19.7 % (11.8-14.3); White Blood Cell 10.1 10^3/uL (4.4-10.8)
[2023-01-31 06:06] LABS: Anion Gap 8 (5-15); Carbon Dioxide 26 mmol/L (20-30); Chloride 107 mmol/L (98-107); Potassium 3.3 mmol/L (3.5-5.1); Sodium 141 mmol/L (136-145)
[2023-01-31 06:08] LABS: Calcium 8.8 mg/dL (8.5-10.1)
[2023-01-31 06:12] LABS: Glucose 94 mg/dL (74-106)
[2023-01-31 06:28] LABS: BUN/Creatinine Ratio 6.4 (10.0-20.0); Blood Urea Nitrogen < 5 mg/dL (9-23)
[2023-01-31] MEDS: InsuLIN REG 1unit/0.01ml Soln (100units/ml) SC SCH ×4 (06:34→22:00)
[2023-01-31] MEDS: ACCU-CHEK COMFORT CURVE STRIP VI SCH ×4 (06:34→22:47)
[2023-01-31 07:30] VITALS: PULSE 100; RESP 20; O2SAT 96
[2023-01-31 08:05] VITALS: BP 95/56; PULSE 100; RESP 21; TEMP 98.7; O2SAT 96
[2023-01-31] MEDS ORDERED: POTASSIUM CHL 20 Meq TABLET PO ONE (09:30)
[2023-01-31] MEDS: NYSTATIN-TRIAMCINOLONE TOPICAL CRE 15GM TOP SCH ×2 (10:00→22:48)
[2023-01-31] MEDS: PANTOPRAZOLE 40 MG TAB PO SCH (10:35)
[2023-01-31] MEDS: DOXYCYCLINE 100 MG TAB/CAP PO SCH ×2 (10:36→22:46)
[2023-01-31] MEDS: MEMANTINE HCL 5 MG TAB PO SCH ×2 (10:36→22:46)
[2023-01-31] MEDS: POTASSIUM CHL 20 Meq TABLET PO SCH (10:40)
[2023-01-31] MEDS: ASPirin-EC 81 mg tab PO SCH (10:40)
[2023-01-31] MEDS: CLOPIDOGREL BISULFATE 75 MG TAB PO SCH (10:41)
[2023-01-31] MEDS: TIMOLOL MAL 0.5% OPTH(EYE) SOL 5ML EACHEYE SCH ×2 (10:42→22:47)
[2023-01-31] MEDS: FUROSEMIDE 20 MG/2 ML VIAL IV SCH (10:51)
[2023-01-31] MEDS: SODIUM CHLOR 0.9% PF (SALINE LOCK) 10ML VIAL/SYR IV SCH ×2 (10:51→23:28)
[2023-01-31 12:20] VITALS: BP 98/53; PULSE 93; RESP 21; TEMP 98.9; O2SAT 95
[2023-01-31 16:10] VITALS: BP 106/56; PULSE 96; RESP 20; TEMP 98.9; O2SAT 95
[2023-01-31] MEDS ORDERED: VANCOMYCIN 1GM/250ML 250 ML IV SCH (20:00)
[2023-01-31 22:00] VITALS: BP 93/50; PULSE 104; RESP 18; TEMP 99.1; O2SAT 96
[2023-02-01 05:00] VITALS: BP 110/55; PULSE 95; RESP 18; TEMP 98.5; O2SAT 95
[2023-02-01] MEDS: InsuLIN REG 1unit/0.01ml Soln (100units/ml) SC SCH ×4 (06:04→21:15)
[2023-02-01] MEDS: ACCU-CHEK COMFORT CURVE STRIP VI SCH ×4 (06:04→21:09)
[2023-02-01] MEDS: ROPIVACAINE 0.5% (5MG/ML) 20ML AMPULE IJ ONE ×2 (06:50→07:59)
[2023-02-01] MEDS ORDERED: ceFAZolin 1GM VL ONE (06:57)
[2023-02-01] MEDS ORDERED: ceFAZolin 2 GM/D5W100ml 100 ML IV ONE (07:01)
[2023-02-01] MEDS ORDERED: BACITRACIN TOP OINT 1 UD PKG TOP ONE (07:13)
[2023-02-01] MEDS ORDERED: MIDAZOLAM HCL 2MG/2ML 2ml VIAL (1mg/ml) ONE (07:27)
[2023-02-01] MEDS ORDERED: fentaNYL CITRATE 100 MCG/2 ML VL ONE (07:27)
[2023-02-01] MEDS ORDERED: PROPOFOL 10 MG/ML 20 ML IV ONE (07:28)
[2023-02-01] MEDS ORDERED: DexAMETHasone SOD PHOS 10MG/1ML VIAL INJ ONE (07:28)
[2023-02-01 07:35] LABS: Chloride 111 mmol/L (98-107); Potassium 3.8 mmol/L (3.5-5.1); Sodium 142 mmol/L (136-145)
[2023-02-01 07:36] LABS: Anion Gap 6 (5-15); Carbon Dioxide 25 mmol/L (20-30)
[2023-02-01 07:37] LABS: Calcium 8.5 mg/dL (8.5-10.1)
[2023-02-01 07:41] LABS: Glucose 80 mg/dL (74-106)
[2023-02-01 07:46] LABS: BUN/Creatinine Ratio 6.1 (10.0-20.0); Blood Urea Nitrogen < 5 mg/dL (9-23)
[2023-02-01] MEDS ORDERED: LABETALOL HCL 5 MG/ML 4ML SYRINGE IV PRN (08:00)
[2023-02-01] MEDS ORDERED: ONDANSETRON HCL 4 MG/2 ML VIAL IV PRN (08:00)
[2023-02-01] MEDS ORDERED: MORPHINE SULFATE 4 MG/ML SYR/VIAL IV PRN (08:00)
[2023-02-01] MEDS ORDERED: MIDAZOLAM HCL 2MG/2ML 2ml VIAL (1mg/ml) IV PRN (08:00)
[2023-02-01] MEDS ORDERED: ePHEDrine SULFATE 50 MG/ML AMP IV PRN (08:00)
[2023-02-01 08:22] VITALS: PULSE 92; RESP 19; O2SAT 96
[2023-02-01 09:00] VITALS: BP 130/83; PULSE 87; RESP 16; TEMP 97.5; O2SAT 100
[2023-02-01] MEDS: FUROSEMIDE 20 MG/2 ML VIAL IV SCH (10:22)
[2023-02-01] MEDS: CLOPIDOGREL BISULFATE 75 MG TAB PO SCH (10:23)
[2023-02-01] MEDS: ASPirin-EC 81 mg tab PO SCH (10:23)
[2023-02-01] MEDS: NYSTATIN-TRIAMCINOLONE TOPICAL CRE 15GM TOP SCH ×2 (10:23→21:15)
[2023-02-01] MEDS: DOXYCYCLINE 100 MG TAB/CAP PO SCH ×2 (10:24→21:09)
[2023-02-01] MEDS: PANTOPRAZOLE 40 MG TAB PO SCH (10:24)
[2023-02-01] MEDS: MEMANTINE HCL 5 MG TAB PO SCH ×2 (10:24→21:08)
[2023-02-01] MEDS: POTASSIUM CHL 20 Meq TABLET PO SCH (10:24)
[2023-02-01] MEDS: SODIUM CHLOR 0.9% PF (SALINE LOCK) 10ML VIAL/SYR IV SCH ×2 (10:25→21:16)
[2023-02-01] MEDS: TIMOLOL MAL 0.5% OPTH(EYE) SOL 5ML EACHEYE SCH ×2 (10:25→22:07)
[2023-02-01 13:00] VITALS: BP 111/53; PULSE 68; RESP 16; TEMP 98.1; O2SAT 99
[2023-02-01] MEDS ORDERED: PHENYLEPHRINE HCL 10 MG/ML VL IV ONE (14:19)
[2023-02-01] MEDS ORDERED: VANCOMYCIN 1GM/250ML 250 ML IV SCH (15:00)
[2023-02-01] MEDS: VANCOMYCIN 1GM/250ML 250 ML IV SCH (16:45)
[2023-02-01 17:16] VITALS: BP 119/66; PULSE 88; RESP 16; TEMP 98.7; O2SAT 96
[2023-02-01 22:00] VITALS: BP 104/63; PULSE 89; RESP 22; TEMP 97.9; O2SAT 100
[2023-02-02 05:00] VITALS: BP 143/76; PULSE 86; RESP 22; TEMP 97.5; O2SAT 100
[2023-02-02] MEDS: InsuLIN REG 1unit/0.01ml Soln (100units/ml) SC SCH ×2 (06:17→11:30)
[2023-02-02] MEDS: ACCU-CHEK COMFORT CURVE STRIP VI SCH ×2 (06:17→11:41)
[2023-02-02 08:00] VITALS: BP 120/58; PULSE 82; RESP 17; TEMP 98.9
[2023-02-02] MEDS: VANCOMYCIN 1GM/250ML 250 ML IV SCH (08:00)
[2023-02-02] MEDS: DOXYCYCLINE 100 MG TAB/CAP PO SCH (09:40)
[2023-02-02] MEDS: POTASSIUM CHL 20 Meq TABLET PO SCH (09:40)
[2023-02-02] MEDS: ASPirin-EC 81 mg tab PO SCH (09:41)
[2023-02-02] MEDS: CLOPIDOGREL BISULFATE 75 MG TAB PO SCH (09:41)
[2023-02-02] MEDS: MEMANTINE HCL 5 MG TAB PO SCH (09:42)
[2023-02-02] MEDS: PANTOPRAZOLE 40 MG TAB PO SCH (09:42)
[2023-02-02] MEDS ORDERED: POTA-180 PO (09:43)
[2023-02-02] MEDS ORDERED: NITR-87 PO ×2 (09:43)
[2023-02-02] MEDS ORDERED: DOXY-447 PO ×2 (09:43)
[2023-02-02] MEDS ORDERED: FURO1TAB31 PO (09:43)
[2023-02-02] MEDS: SODIUM CHLOR 0.9% PF (SALINE LOCK) 10ML VIAL/SYR IV SCH (09:44)
[2023-02-02] MEDS: FUROSEMIDE 20 MG/2 ML VIAL IV SCH (09:44)
[2023-02-02] MEDS: NYSTATIN-TRIAMCINOLONE TOPICAL CRE 15GM TOP SCH (09:46)
[2023-02-02] MEDS: TIMOLOL MAL 0.5% OPTH(EYE) SOL 5ML EACHEYE SCH (09:46)
[2023-02-02] MEDS ORDERED: FLUC200T50 PO (09:47)
[2023-02-02 12:21] VITALS: BP 134/76; PULSE 82; RESP 17; TEMP 98.9; O2SAT 100
[2023-02-02 13:07] VITALS: BP 99/45; PULSE 76; RESP 17; TEMP 98.5; O2SAT 100
[2023-02-02] MEDS ORDERED: LINE1TAB6 PO (13:47)
== END 2023-02-02 14:20 | disposition home or self-care (01) | DRG 907 ==
LOC: ER 07:32 → EDBD 07:32 → CENTRAL 01-29 17:22 → OVERFLOW 01-29 17:22 → CENTRAL 01-29 23:30
PROVIDERS: ADMIT Nurse Practitioner Family; ATTEND Internal Medicine
PROC: 02HV33Z Insertion of Infusion Device into Superior Vena Cava, Percutaneous Approach (ICD-10-PCS; 2023-01-27)
PROC: B548ZZA Ultrasonography of Superior Vena Cava, Guidance (ICD-10-PCS; 2023-01-27)
PROC: 30233N1 Transfusion of Nonautologous Red Blood Cells into Peripheral Vein, Percutaneous Approach (ICD-10-PCS; 2023-01-27)
PROC: 0SPF04Z Removal of Internal Fixation Device from Right Ankle Joint, Open Approach (ICD-10-PCS; principal; 2023-02-01 07:30)
DX: T81.30XA Disruption of wound, unspecified, initial encounter (principal); I50.43 Acute on chronic combined systolic (congestive) and diastolic (congestive) heart failure; D62 Acute posthemorrhagic anemia; E44.0 Moderate protein-calorie malnutrition; L97.919 Non-pressure chronic ulcer of unspecified part of right lower leg with unspecified severity; N39.0 Urinary tract infection, site not specified; E11.51 Type 2 diabetes mellitus with diabetic peripheral angiopathy without gangrene; B35.3 Tinea pedis; E66.01 Morbid (severe) obesity due to excess calories; F03.C0 Unspecified dementia, severe, without behavioral disturbance, psychotic disturbance, mood disturbance, and anxiety; E11.9 Type 2 diabetes mellitus without complications; I87.2 Venous insufficiency (chronic) (peripheral); B95.2 Enterococcus as the cause of diseases classified elsewhere; B95.62 Methicillin resistant Staphylococcus aureus infection as the cause of diseases classified elsewhere; S81.801A Unspecified open wound, right lower leg, initial encounter; Y83.8 Other surgical procedures as the cause of abnormal reaction of the patient, or of later complication, without mention of misadventure at the time of the procedure; Y92.89 Other specified places as the place of occurrence of the external cause; Z68.31 Body mass index [BMI] 31.0-31.9, adult; Z86.711 Personal history of pulmonary embolism; Z74.01 Bed confinement status; Z83.3 Family history of diabetes mellitus; I95.9 Hypotension, unspecified
CPT/HCPCS: 36415; 36569; 71045; 80048; 80053; 80202; 81001; 82270; 82962; 85025; 85610; 85730; 86850; 86900; 86901; 86920; 87070; 87075; 87077; 87081; 87086; 87088; 87186; 87205; 93306; 96365; G0378; J0690; J1100; J2250; J2704

== ENCOUNTER 2023-02-13 10:25 | Inpatient (IN) | payer BC, MEDICAID ==
[~2023-02-13] VITALS: Ht 157.5 cm; Wt 99.4 kg
[2023-02-13] MEDS: SODIUM CHLORIDE 0.9% 1,000 ML IV SCH (08:03)
[~2023-02-13 10:25] MED LIST changes: +FLUC200T50 PO; +FURO1TAB31 PO; +LINE1TAB6 PO; +POTA-180 PO
[2023-02-13] MEDS ORDERED: SODIUM CHLORIDE 0.9% 1,000 ML IV ONE (11:00)
[2023-02-13 11:40] LABS: Lactic Acid w/Reflex 3.1 mmol/L (0.4-2.0)
[2023-02-13] MEDS ORDERED: PIPERACILLIN-TAZOB 3.375GM 100 ML IV ONE (12:00)
[2023-02-13 12:08] LABS: Basophils # (auto) 0.1 10 ^3/uL (0-0.2); Eosinophils # (auto) 0.3 10 ^3/uL (0-0.8); Eosinophils % (auto) 2.4 % (0.0-7.0); Hematocrit 35.1 % (36.0-46.0); Hemoglobin 10.7 g/dL (12.2-16.2); Lymphocytes % (auto) 21.2 % (10.0-50.0); Mean Corpuscular Hemoglobin 29.6 pg (28.0-32.0); Mean Corpuscular Hgb Conc. 30.5 g/dL (32.0-36.0); Monocytes # (auto) 0.7 10 ^3/uL (0-1.3); Monocytes % (auto) 4.7 % (0.0-12.0); Neutrophils # (auto) 10.1 10 ^3/uL (1.6-8.6); Neutrophils % (auto) 70.7 % (37.0-80.0); Nucleated Red Blood Cells % 0.2 %; Red Blood Cells 3.62 10^6/uL (4.0-5.20); Red Cell Distribution Width 18.3 % (11.8-14.3); White Blood Cell 14.3 10^3/uL (4.4-10.8)
[2023-02-13 12:33] LABS: Albumin 2.8 g/dL (3.2-4.8); Alkaline Phosphatase 69 U/L (46-116); Anion Gap 13 (5-15); Aspartate Aminotransferase 25 U/L (13-40); BUN/Creatinine Ratio 6.3 (10.0-20.0); Bilirubin, Total 0.5 mg/dL (0.2-1.0); Blood Urea Nitrogen 6 mg/dL (9-23); Calcium 9.6 mg/dL (8.5-10.1); Carbon Dioxide 20 mmol/L (20-30); Chloride 107 mmol/L (98-107); Glucose 133 mg/dL (74-106); Potassium 4.6 mmol/L (3.5-5.1); Sodium 140 mmol/L (136-145); Total Protein 6.3 g/dL (5.7-8.2)
[2023-02-13 12:41] LABS: Alanine Aminotransferase < 9 U/L (7-40)
[2023-02-13 12:46] LABS: Platelet Estimate Adequate
[2023-02-13 12:47] LABS: Magnesium 1.4 mg/dL (1.6-2.6)
[2023-02-13 13:36] VITALS: O2SAT 98
[2023-02-13] MEDS ORDERED: DOCUSATE SOD 100 MG CAP PO PRN (16:45)
[2023-02-13] MEDS ORDERED: HYDROcodone-ACET 5/325MG TAB PO PRN (16:45)
[2023-02-13] MEDS ORDERED: ACETAMINOPHEN 325 MG TAB PO PRN (16:45)
[2023-02-13] MEDS ORDERED: NITROGLYCERIN 0.4 MG SL TAB SL PRN (16:45)
[2023-02-13] MEDS ORDERED: DEXTROSE (50%) 50ML SYRG IV PRN (16:45)
[2023-02-13] MEDS ORDERED: SODIUM CHLORIDE 0.9% 1,000 ML IV SCH (16:45)
[2023-02-13] MEDS ORDERED: ONDANSETRON HCL 4 MG/2 ML VIAL IV PRN (16:45)
[2023-02-13] MEDS ORDERED: MORPHINE SULFATE INJ 2 MG/ml SYRG IV PRN ×2 (16:45)
[2023-02-13] MEDS ORDERED: VANCOMYCIN PER PHARMACY 0 MG IV SCH (17:30)
[2023-02-13] MEDS ORDERED: VANCOMYCIN 1GM/250ML 250 ML IV ONE (17:30)
[2023-02-13 20:15] VITALS: PULSE 92; RESP 18; O2SAT 92
[2023-02-13] MEDS: ACCU-CHEK COMFORT CURVE STRIP VI SCH ×2 (21:13→23:17)
[2023-02-13] MEDS: InsuLIN REG 1unit/0.01ml Soln (100units/ml) SC SCH ×2 (21:13→22:00)
[2023-02-13] MEDS: TIMOLOL MAL 0.5% OPTH(EYE) SOL 5ML EACHEYE SCH (22:00)
[2023-02-13 22:43] VITALS: BP 101/48; PULSE 20; PULSE 90; RESP 20; TEMP 97.8; O2SAT 97
[2023-02-13] MEDS: APIXABAN 5 MG TAB PO SCH (23:21)
[2023-02-13] MEDS: MIDODRINE HCL 10 MG TAB PO SCH (23:21)
[2023-02-13] MEDS: MEMANTINE HCL 5 MG TAB PO SCH (23:22)
[2023-02-14] VITALS (7 sets, daily range): BP systolic 98–116; BP diastolic 44–60; PULSE 59–96; RESP 16–22; TEMP 97.6–98.4; O2SAT 91–98
[2023-02-14 05:38] LABS: Anion Gap 10 (5-15); BUN/Creatinine Ratio 7.8 (10.0-20.0); Blood Urea Nitrogen 7 mg/dL (9-23); Calcium 9.1 mg/dL (8.5-10.1); Carbon Dioxide 24 mmol/L (20-30); Chloride 107 mmol/L (98-107); Glucose 86 mg/dL (74-106); Potassium 4.4 mmol/L (3.5-5.1); Sodium 141 mmol/L (136-145)
[2023-02-14 05:39] LABS: Aspartate Aminotransferase 23 U/L (13-40)
[2023-02-14 05:40] LABS: Albumin 2.6 g/dL (3.2-4.8); Bilirubin, Total 0.4 mg/dL (0.2-1.0); Total Protein 5.5 g/dL (5.7-8.2)
[2023-02-14 05:47] LABS: Basophils # (auto) 0.1 10 ^3/uL (0-0.2); Basophils % (auto) 0.9 % (0.0-2.0); Eosinophils # (auto) 0.3 10 ^3/uL (0-0.8); Eosinophils % (auto) 3.4 % (0.0-7.0); Hematocrit 30.5 % (36.0-46.0); Hemoglobin 9.7 g/dL (12.2-16.2); Lymphocytes # (auto) 2.8 10 ^3/uL (0.4-5.4); Lymphocytes % (auto) 26.8 % (10.0-50.0); Mean Corpuscular Hemoglobin 30.4 pg (28.0-32.0); Mean Corpuscular Hgb Conc. 31.8 g/dL (32.0-36.0); Mean Corpuscular Volume 95.7 fL (80.0-100.0); Monocytes # (auto) 0.5 10 ^3/uL (0-1.3); Monocytes % (auto) 4.7 % (0.0-12.0); Neutrophils # (auto) 6.7 10 ^3/uL (1.6-8.6); Neutrophils % (auto) 64.2 % (37.0-80.0); Nucleated Red Blood Cells % 0.2 %; Red Blood Cells 3.18 10^6/uL (4.0-5.20); Red Cell Distribution Width 17.7 % (11.8-14.3); White Blood Cell 10.4 10^3/uL (4.4-10.8)
[2023-02-14 06:02] LABS: Alkaline Phosphatase 68 U/L (46-116)
[2023-02-14] MEDS: InsuLIN REG 1unit/0.01ml Soln (100units/ml) SC SCH ×4 (06:14→21:07)
[2023-02-14 06:25] LABS: Alanine Aminotransferase < 9 U/L (7-40)
[2023-02-14] MEDS: ACCU-CHEK COMFORT CURVE STRIP VI SCH ×4 (07:00→21:07)
[2023-02-14] MEDS: SODIUM CHLORIDE 0.9% 1,000 ML IV SCH ×2 (08:03→22:21)
[2023-02-14] MEDS: APIXABAN 5 MG TAB PO SCH ×2 (08:52→21:08)
[2023-02-14] MEDS: PANTOPRAZOLE 40 MG TAB PO SCH (08:53)
[2023-02-14] MEDS: MIDODRINE HCL 10 MG TAB PO SCH ×2 (08:53→21:07)
[2023-02-14] MEDS: MEMANTINE HCL 5 MG TAB PO SCH ×2 (08:53→21:08)
[2023-02-14] MEDS ORDERED: MAGNESIUM SULFATE 1GM/100ML 100 ML IV ONE (09:00)
[2023-02-14] MEDS ORDERED: FUROSEMIDE 20 MG TAB PO SCH (10:00)
[2023-02-14] MEDS ORDERED: ASPirin-EC 81 mg tab PO SCH (10:00)
[2023-02-14] MEDS: TIMOLOL MAL 0.5% OPTH(EYE) SOL 5ML EACHEYE SCH ×2 (10:00→21:20)
[2023-02-14] MEDS: LINEZOLID 600MG TABLET PO SCH (21:11)
[2023-02-14] MEDS: MUPIROCIN 2% OINT 15gm or 22gm FOR MRSA NARES EACHNOSTRI SCH (21:25)
[2023-02-15 05:01] VITALS: BP 128/63; PULSE 80; RESP 20; TEMP 97.4; O2SAT 95
[2023-02-15] MEDS: InsuLIN REG 1unit/0.01ml Soln (100units/ml) SC SCH ×2 (06:44→11:30)
[2023-02-15] MEDS: ACCU-CHEK COMFORT CURVE STRIP VI SCH ×2 (06:44→11:30)
[2023-02-15 08:00] VITALS: PULSE 60; PULSE 75; RESP 18
[2023-02-15 09:00] VITALS: BP 119/56; PULSE 86; RESP 16; TEMP 97.4; O2SAT 99
[2023-02-15] MEDS: APIXABAN 5 MG TAB PO SCH (09:06)
[2023-02-15] MEDS: MIDODRINE HCL 10 MG TAB PO SCH (09:06)
[2023-02-15] MEDS: MEMANTINE HCL 5 MG TAB PO SCH (09:06)
[2023-02-15] MEDS: PANTOPRAZOLE 40 MG TAB PO SCH (09:07)
[2023-02-15] MEDS: MUPIROCIN 2% OINT 15gm or 22gm FOR MRSA NARES EACHNOSTRI SCH (09:07)
[2023-02-15] MEDS: LINEZOLID 600MG TABLET PO SCH (09:11)
[2023-02-15] MEDS: TIMOLOL MAL 0.5% OPTH(EYE) SOL 5ML EACHEYE SCH (09:13)
[2023-02-15 10:23] LABS: Basophils # (auto) 0.1 10 ^3/uL (0-0.2); Eosinophils % (auto) 4.1 % (0.0-7.0); Monocytes # (auto) 0.4 10 ^3/uL (0-1.3); Nucleated Red Blood Cells % 0.3 %; White Blood Cell 8.6 10^3/uL (4.4-10.8)
[2023-02-15 10:25] LABS: Basophils % (auto) 1.4 % (0.0-2.0); Eosinophils # (auto) 0.4 10 ^3/uL (0-0.8); Hematocrit 34.2 % (36.0-46.0); Hemoglobin 10.6 g/dL (12.2-16.2); Lymphocytes # (auto) 3.2 10 ^3/uL (0.4-5.4); Lymphocytes % (auto) 37.5 % (10.0-50.0); Mean Corpuscular Hemoglobin 29.9 pg (28.0-32.0); Mean Corpuscular Hgb Conc. 31.1 g/dL (32.0-36.0); Mean Corpuscular Volume 96.4 fL (80.0-100.0); Monocytes % (auto) 4.5 % (0.0-12.0); Neutrophils # (auto) 4.5 10 ^3/uL (1.6-8.6); Neutrophils % (auto) 52.5 % (37.0-80.0); Red Blood Cells 3.55 10^6/uL (4.0-5.20); Red Cell Distribution Width 18.1 % (11.8-14.3)
[2023-02-15] MEDS: SODIUM CHLORIDE 0.9% 1,000 ML IV SCH (12:39)
== END 2023-02-15 14:00 | disposition home health service (06) | DRG 862 ==
LOC: EDBD 10:25 → ER 10:25 → TELE 16:47 → TELE-CENTR 16:47
PROVIDERS: ADMIT Nurse Practitioner Family; ATTEND Internal Medicine
DX: T81.44XA Sepsis following a procedure, initial encounter (principal); R65.20 Severe sepsis without septic shock; E87.20 Acidosis, unspecified; Z68.41 Body mass index [BMI] 40.0-44.9, adult; I13.0 Hypertensive heart and chronic kidney disease with heart failure and stage 1 through stage 4 chronic kidney disease, or unspecified chronic kidney disease; N39.0 Urinary tract infection, site not specified; E44.0 Moderate protein-calorie malnutrition; I50.42 Chronic combined systolic (congestive) and diastolic (congestive) heart failure; L97.319 Non-pressure chronic ulcer of right ankle with unspecified severity; E66.01 Morbid (severe) obesity due to excess calories; K21.9 Gastro-esophageal reflux disease without esophagitis; G90.9 Disorder of the autonomic nervous system, unspecified; N18.9 Chronic kidney disease, unspecified; B95.2 Enterococcus as the cause of diseases classified elsewhere; B95.62 Methicillin resistant Staphylococcus aureus infection as the cause of diseases classified elsewhere; D64.9 Anemia, unspecified; E11.51 Type 2 diabetes mellitus with diabetic peripheral angiopathy without gangrene; E11.22 Type 2 diabetes mellitus with diabetic chronic kidney disease; E78.5 Hyperlipidemia, unspecified; F03.90 Unspecified dementia, unspecified severity, without behavioral disturbance, psychotic disturbance, mood disturbance, and anxiety; I95.1 Orthostatic hypotension; Z74.01 Bed confinement status; Z83.3 Family history of diabetes mellitus; Z86.711 Personal history of pulmonary embolism; Z86.73 Personal history of transient ischemic attack (TIA), and cerebral infarction without residual deficits; Z87.440 Personal history of urinary (tract) infections; Z98.62 Peripheral vascular angioplasty status; S81.801A Unspecified open wound, right lower leg, initial encounter; X58.XXXA Exposure to other specified factors, initial encounter; Y93.9 Activity, unspecified; Y92.89 Other specified places as the place of occurrence of the external cause; Y99.8 Other external cause status
CPT/HCPCS: 36415; 70450; 71045; 80053; 82962; 83605; 83735; 83880; 84484; 85025; 87040; 87077; 87081; 87186; 87205; 93005; 93886; G0378; J2543

== ENCOUNTER 2023-02-20 12:44 | Inpatient (IN) | payer MEDICARE, MEDICAID ==
[~2023-02-20] VITALS: Ht 149.9 cm; Wt 107.0 kg
[2023-02-20 14:54] LABS: Basophils # (auto) 0.1 10 ^3/uL (0-0.2); Basophils % (auto) 0.6 % (0.0-2.0); Eosinophils # (auto) 0 10 ^3/uL (0-0.8); Eosinophils % (auto) 0.3 % (0.0-7.0); Lymphocytes # (auto) 2.2 10 ^3/uL (0.4-5.4); Lymphocytes % (auto) 18.9 % (10.0-50.0); Mean Corpuscular Hemoglobin 29.5 pg (28.0-32.0); Mean Corpuscular Hgb Conc. 31.5 g/dL (32.0-36.0); Mean Corpuscular Volume 93.6 fL (80.0-100.0); Monocytes # (auto) 0.7 10 ^3/uL (0-1.3); Monocytes % (auto) 5.9 % (0.0-12.0); Neutrophils # (auto) 8.8 10 ^3/uL (1.6-8.6); Neutrophils % (auto) 74.3 % (37.0-80.0); Nucleated Red Blood Cells % 0.2 %; Red Blood Cells 3.74 10^6/uL (4.0-5.20); Red Cell Distribution Width 16.8 % (11.8-14.3); White Blood Cell 11.9 10^3/uL (4.4-10.8)
[2023-02-20 15:19] LABS: Alanine Aminotransferase 18 U/L (7-40); Albumin 3.1 g/dL (3.2-4.8); Alkaline Phosphatase 75 U/L (46-116); Anion Gap 11 (5-15); Aspartate Aminotransferase 34 U/L (13-40); BUN/Creatinine Ratio 10.9 (10.0-20.0); Bilirubin, Total 0.4 mg/dL (0.2-1.0); Blood Urea Nitrogen 13 mg/dL (9-23); Calcium 9.9 mg/dL (8.7-10.4); Carbon Dioxide 23 mmol/L (20-30); Chloride 105 mmol/L (98-107); Glucose 132 mg/dL (74-106); Magnesium 1.3 mg/dL (1.6-2.6); Potassium 4.8 mmol/L (3.5-5.1); Sodium 139 mmol/L (136-145)
[2023-02-20 15:20] LABS: Total Protein 6.7 g/dL (5.7-8.2)
[2023-02-20 15:45] LABS: INR 1.28 (0.9-1.15); Partial Thromboplastin Time 26.7 SEC (24.5-34.5); Prothrombin Time 13.2 sec (9.3-11.8)
[2023-02-20] MEDS ORDERED: SODIUM CHLORIDE 0.9% 1,000 ML IV ONE (16:45)
[2023-02-20 17:05] VITALS: O2SAT 100
[2023-02-20] MEDS ORDERED: SODIUM CHLORIDE 0.9% 3,000 ML IV ONE (18:30)
[2023-02-20] MEDS ORDERED: VANCOMYCIN PER PHARMACY 0 MG IV SCH (18:30)
[2023-02-20] MEDS ORDERED: PIPERACILLIN-TAZOB 3.375GM 100 ML IV ONE (18:30)
[2023-02-20] MEDS ORDERED: NITROGLYCERIN 0.4 MG SL TAB SL PRN ×2 (18:45)
[2023-02-20] MEDS ORDERED: MORPHINE SULFATE INJ 2 MG/ml SYRG IV PRN ×2 (18:45)
[2023-02-20] MEDS ORDERED: DOCUSATE SOD 100 MG CAP PO PRN (18:45)
[2023-02-20] MEDS ORDERED: ACETAMINOPHEN 325 MG TAB PO PRN (18:45)
[2023-02-20] MEDS ORDERED: ONDANSETRON HCL 4 MG/2 ML VIAL IV PRN (18:45)
[2023-02-20] MEDS ORDERED: HYDROcodone-ACET 5/325MG TAB PO PRN (18:45)
[2023-02-20] MEDS: SODIUM CHLORIDE 0.9% 1,000 ML IV SCH (18:54)
[2023-02-20] MEDS ORDERED: VANCOMYCIN 1GM/200ML 250 ML IV ONE (19:00)
[2023-02-20 19:50] VITALS: PULSE 86; RESP 17; O2SAT 100
[2023-02-20 21:31] LABS: Lactic Acid w/Reflex 2.8 mmol/L (0.4-2.0)
[2023-02-21] MEDS: VANCOMYCIN 1GM/200ML 250 ML IV SCH (05:08)
[2023-02-21 05:19] LABS: Urine Bacteria FEW /hpf (None Seen); Urine Blood 1+ /uL (Negative); Urine Clarity Clear (Clear); Urine Color Yellow (Yellow); Urine Mucus FEW (None Seen); Urine Protein, UAD TRACE (Negative); Urine Specific Gravity > 1.050 (1.001-1.035); Urine Urobilinogen Normal (Negative); Urine WBC 1 /hpf (0 - 5); Urine pH 5.5 (5.0-8.0)
[2023-02-21 06:15] LABS: Albumin 2.7 g/dL (3.2-4.8); Alkaline Phosphatase 65 U/L (46-116); Anion Gap 10 (5-15); Aspartate Aminotransferase 25 U/L (13-40); BUN/Creatinine Ratio 14.1 (10.0-20.0); Bilirubin, Total 0.3 mg/dL (0.2-1.0); Blood Urea Nitrogen 14 mg/dL (9-23); Calcium 9.3 mg/dL (8.5-10.1); Carbon Dioxide 23 mmol/L (20-30); Chloride 109 mmol/L (98-107); Glucose 105 mg/dL (74-106); Potassium 4.2 mmol/L (3.5-5.1); Sodium 142 mmol/L (136-145); Total Protein 5.7 g/dL (5.7-8.2)
[2023-02-21 06:56] LABS: Alanine Aminotransferase 15 U/L (7-40)
[2023-02-21 07:23] LABS: Basophils # (auto) 0.1 10 ^3/uL (0-0.2); Basophils % (auto) 0.8 % (0.0-2.0); Eosinophils # (auto) 0.1 10 ^3/uL (0-0.8); Eosinophils % (auto) 1.7 % (0.0-7.0); Hematocrit 31.6 % (36.0-46.0); Lymphocytes # (auto) 1.9 10 ^3/uL (0.4-5.4); Lymphocytes % (auto) 26.1 % (10.0-50.0); Mean Corpuscular Hemoglobin 29.3 pg (28.0-32.0); Mean Corpuscular Hgb Conc. 31.6 g/dL (32.0-36.0); Mean Corpuscular Volume 92.7 fL (80.0-100.0); Monocytes # (auto) 0.6 10 ^3/uL (0-1.3); Neutrophils # (auto) 4.6 10 ^3/uL (1.6-8.6); Neutrophils % (auto) 63.4 % (37.0-80.0); Red Blood Cells 3.41 10^6/uL (4.0-5.20); Red Cell Distribution Width 16.9 % (11.8-14.3); White Blood Cell 7.3 10^3/uL (4.4-10.8)
[2023-02-21 07:30] VITALS: PULSE 84; RESP 14; O2SAT 100
[2023-02-21] MEDS: SODIUM CHLORIDE 0.9% 1,000 ML IV SCH ×2 (09:23→16:45)
[2023-02-21] MEDS ORDERED: PANTOPRAZOLE 40 MG/10 ML VIAL INJ IV ONE (10:00)
[2023-02-21] MEDS ORDERED: DEXTROSE (50%) 50ML SYRG IV PRN (10:30)
[2023-02-21] MEDS: cefTRIAXone 1GM/50ML D5W 50 ML IV SCH (10:35)
[2023-02-21] MEDS: ACCU-CHEK COMFORT CURVE STRIP VI SCH ×3 (12:32→21:52)
[2023-02-21] MEDS: InsuLIN REG 1unit/0.01ml Soln (100units/ml) SC SCH ×3 (12:32→21:53)
[2023-02-21 16:08] VITALS: BP 108/46; PULSE 77; RESP 18; TEMP 98.3; O2SAT 98
[2023-02-21 16:58] VITALS: PULSE 77; RESP 18; O2SAT 98
[2023-02-21] MEDS ORDERED: LISI10TA34 PO (17:41)
[2023-02-21] MEDS ORDERED: MIDO2.5T3 PO (17:41)
[2023-02-21] MEDS ORDERED: LACT10SO3 PO (19:25)
[2023-02-21] MEDS ORDERED: TIMO0.5S28 EACHEYE (19:25)
[2023-02-21 20:00] VITALS: PULSE 108
[2023-02-21] MEDS: APIXABAN 5 MG TAB PO SCH (21:37)
[2023-02-21] MEDS: MIDODRINE HCL 10 MG TAB PO SCH (21:39)
[2023-02-21] MEDS: MEMANTINE HYDROCHLORIDE PO SCH (22:00)
[2023-02-22] VITALS (7 sets, daily range): BP systolic 93–120; BP diastolic 43–73; PULSE 65–106; RESP 14–20; TEMP 97.2–98.5; O2SAT 92–99
[2023-02-22] MEDS: VANCOMYCIN 1GM/200ML 250 ML IV SCH (04:37)
[2023-02-22] MEDS: InsuLIN REG 1unit/0.01ml Soln (100units/ml) SC SCH ×4 (06:30→22:00)
[2023-02-22] MEDS: ACCU-CHEK COMFORT CURVE STRIP VI SCH ×4 (06:30→22:05)
[2023-02-22] MEDS: FUROSEMIDE 40 MG TAB PO SCH (06:33)
[2023-02-22] MEDS ORDERED: POTA10TA51 PO (08:41)
[2023-02-22] MEDS: MEMANTINE HYDROCHLORIDE PO SCH ×2 (10:00→22:00)
[2023-02-22] MEDS: PANTOPRAZOLE 40 MG/10 ML VIAL INJ IV SCH (10:07)
[2023-02-22] MEDS: ASPirin-EC 81 mg tab PO SCH (10:07)
[2023-02-22] MEDS: cefTRIAXone 1GM/50ML D5W 50 ML IV SCH (10:07)
[2023-02-22] MEDS: APIXABAN 5 MG TAB PO SCH ×2 (10:07→22:06)
[2023-02-22] MEDS: MIDODRINE HCL 10 MG TAB PO SCH ×2 (10:08→22:06)
[2023-02-22] MEDS: SODIUM CHLORIDE 0.9% 1,000 ML IV SCH (12:35)
[2023-02-23] MEDS: SODIUM CHLORIDE 0.9% 1,000 ML IV SCH ×2 (00:05→13:25)
[2023-02-23] MEDS: VANCOMYCIN 1GM/200ML 250 ML IV SCH (04:54)
[2023-02-23] MEDS: ACCU-CHEK COMFORT CURVE STRIP VI SCH ×4 (06:26→21:57)
[2023-02-23] MEDS: FUROSEMIDE 40 MG TAB PO SCH (06:26)
[2023-02-23] MEDS: InsuLIN REG 1unit/0.01ml Soln (100units/ml) SC SCH ×4 (06:26→21:47)
[2023-02-23 08:00] VITALS: BP 112/77; PULSE 101; PULSE 95; RESP 17; TEMP 98; O2SAT 99
[2023-02-23 09:00] VITALS: BP 112/77; PULSE 101; RESP 17; TEMP 98; O2SAT 99
[2023-02-23] MEDS: MIDODRINE HCL 10 MG TAB PO SCH ×2 (10:00→21:57)
[2023-02-23] MEDS: MEMANTINE HYDROCHLORIDE PO SCH ×2 (10:00→21:47)
[2023-02-23] MEDS: ASPirin-EC 81 mg tab PO SCH (11:17)
[2023-02-23] MEDS: APIXABAN 5 MG TAB PO SCH ×2 (11:18→21:55)
[2023-02-23] MEDS: PANTOPRAZOLE 40 MG/10 ML VIAL INJ IV SCH (14:16)
[2023-02-23] MEDS: cefTRIAXone 1GM/50ML D5W 50 ML IV SCH (14:17)
[2023-02-23 17:00] VITALS: BP 90/42; PULSE 94; RESP 15; TEMP 98.5; O2SAT 93
[2023-02-23 20:00] VITALS: PULSE 109
[2023-02-23 22:30] VITALS: BP 130/63; PULSE 111; RESP 18; TEMP 98.6; O2SAT 98
[2023-02-24] VITALS (8 sets, daily range): BP systolic 110–119; BP diastolic 60–69; PULSE 85–100; RESP 15–20; TEMP 98.3–98.9; O2SAT 97–100
[2023-02-24] MEDS: SODIUM CHLORIDE 0.9% 1,000 ML IV SCH ×2 (02:45→15:59)
[2023-02-24] MEDS: VANCOMYCIN 1GM/200ML 250 ML IV SCH (04:48)
[2023-02-24] MEDS: FUROSEMIDE 40 MG TAB PO SCH (06:34)
[2023-02-24] MEDS: ACCU-CHEK COMFORT CURVE STRIP VI SCH ×4 (06:35→22:00)
[2023-02-24] MEDS: InsuLIN REG 1unit/0.01ml Soln (100units/ml) SC SCH ×4 (06:35→21:36)
[2023-02-24] MEDS: MIDODRINE HCL 10 MG TAB PO SCH ×2 (08:47→21:34)
[2023-02-24] MEDS: cefTRIAXone 1GM/50ML D5W 50 ML IV SCH (09:30)
[2023-02-24] MEDS: APIXABAN 5 MG TAB PO SCH ×2 (09:30→21:35)
[2023-02-24] MEDS: PANTOPRAZOLE 40 MG/10 ML VIAL INJ IV SCH (09:30)
[2023-02-24] MEDS: ASPirin-EC 81 mg tab PO SCH (09:30)
[2023-02-24] MEDS: MEMANTINE HYDROCHLORIDE PO SCH ×2 (10:00→21:35)
[2023-02-24 21:28] LABS: Alanine Aminotransferase 23 U/L (7-40); Albumin 2.4 g/dL (3.2-4.8); Alkaline Phosphatase 85 U/L (46-116); Anion Gap 8 (5-15); Aspartate Aminotransferase 28 U/L (13-40); Blood Urea Nitrogen 8 mg/dL (9-23); Calcium 9.3 mg/dL (8.5-10.1); Carbon Dioxide 22 mmol/L (20-30); Chloride 113 mmol/L (98-107); Glucose 107 mg/dL (74-106); Potassium 3.7 mmol/L (3.5-5.1); Sodium 143 mmol/L (136-145)
[2023-02-24 21:29] LABS: Bilirubin, Total 0.2 mg/dL (0.2-1.0)
[2023-02-24 22:26] LABS: Basophils # (auto) 0.1 10 ^3/uL (0-0.2); Hemoglobin 7.9 g/dL (12.2-16.2); Mean Corpuscular Volume 90.7 fL (80.0-100.0)
[2023-02-24 22:28] LABS: Basophils % (auto) 0.7 % (0.0-2.0); Eosinophils # (auto) 0.7 10 ^3/uL (0-0.8); Eosinophils % (auto) 8.2 % (0.0-7.0); Hematocrit 24.5 % (36.0-46.0); Lymphocytes # (auto) 2.2 10 ^3/uL (0.4-5.4); Lymphocytes % (auto) 24.2 % (10.0-50.0); Mean Corpuscular Hemoglobin 29.4 pg (28.0-32.0); Mean Corpuscular Hgb Conc. 32.4 g/dL (32.0-36.0); Monocytes % (auto) 10.5 % (0.0-12.0); Neutrophils # (auto) 5.1 10 ^3/uL (1.6-8.6); Neutrophils % (auto) 56.4 % (37.0-80.0); Nucleated Red Blood Cells % 0.1 %; Red Cell Distribution Width 16.6 % (11.8-14.3); White Blood Cell 9.1 10^3/uL (4.4-10.8)
[2023-02-25] VITALS (8 sets, daily range): BP systolic 115–142; BP diastolic 49–84; PULSE 94–103; RESP 15–19; TEMP 98–99.1; O2SAT 97–100
[2023-02-25] MEDS: VANCOMYCIN 1GM/200ML 250 ML IV SCH (05:21)
[2023-02-25] MEDS: SODIUM CHLORIDE 0.9% 1,000 ML IV SCH ×2 (05:22→18:45)
[2023-02-25] MEDS: ACCU-CHEK COMFORT CURVE STRIP VI SCH ×4 (06:07→22:42)
[2023-02-25] MEDS: FUROSEMIDE 40 MG TAB PO SCH (06:07)
[2023-02-25] MEDS: InsuLIN REG 1unit/0.01ml Soln (100units/ml) SC SCH ×4 (06:08→22:00)
[2023-02-25] MEDS: MEMANTINE HYDROCHLORIDE PO SCH ×2 (09:08→22:00)
[2023-02-25] MEDS: MIDODRINE HCL 10 MG TAB PO SCH ×2 (09:09→22:41)
[2023-02-25] MEDS: APIXABAN 5 MG TAB PO SCH ×2 (09:44→22:41)
[2023-02-25] MEDS: cefTRIAXone 1GM/50ML D5W 50 ML IV SCH (09:44)
[2023-02-25] MEDS: PANTOPRAZOLE 40 MG/10 ML VIAL INJ IV SCH (09:44)
[2023-02-25] MEDS: ASPirin-EC 81 mg tab PO SCH (09:45)
[2023-02-25] MEDS: DOXYCYCLINE 100 MG TAB/CAP PO SCH ×2 (19:00→22:41)
[2023-02-25 21:09] LABS: Basophils # (auto) 0 10 ^3/uL (0-0.2); Basophils % (auto) 0.5 % (0.0-2.0); Eosinophils # (auto) 0.9 10 ^3/uL (0-0.8); Eosinophils % (auto) 8.8 % (0.0-7.0); Hematocrit 26.5 % (36.0-46.0); Hemoglobin 8.6 g/dL (12.2-16.2); Lymphocytes # (auto) 2.1 10 ^3/uL (0.4-5.4); Lymphocytes % (auto) 21.9 % (10.0-50.0); Mean Corpuscular Hemoglobin 29.7 pg (28.0-32.0); Mean Corpuscular Hgb Conc. 32.5 g/dL (32.0-36.0); Mean Corpuscular Volume 91.4 fL (80.0-100.0); Monocytes % (auto) 10.5 % (0.0-12.0); Neutrophils # (auto) 5.7 10 ^3/uL (1.6-8.6); Neutrophils % (auto) 58.3 % (37.0-80.0); Nucleated Red Blood Cells % 0.2 %; Red Cell Distribution Width 17.2 % (11.8-14.3); White Blood Cell 9.8 10^3/uL (4.4-10.8)
[2023-02-25 21:22] LABS: Alanine Aminotransferase 20 U/L (7-40); Albumin 2.5 g/dL (3.2-4.8); Alkaline Phosphatase 122 U/L (46-116); Anion Gap 8 (5-15); Aspartate Aminotransferase 34 U/L (13-40); Bilirubin, Total 0.3 mg/dL (0.2-1.0); Calcium 9.1 mg/dL (8.7-10.4); Carbon Dioxide 23 mmol/L (20-30); Chloride 112 mmol/L (98-107); Glucose 115 mg/dL (74-106); Potassium 3.3 mmol/L (3.5-5.1); Sodium 143 mmol/L (136-145); Total Protein 5.4 g/dL (5.7-8.2)
[2023-02-25 21:23] LABS: BUN/Creatinine Ratio 6.8 (10.0-20.0); Blood Urea Nitrogen < 5 mg/dL (9-23)
[2023-02-26] VITALS (7 sets, daily range): BP systolic 105–137; BP diastolic 62–71; PULSE 95–109; RESP 19–20; TEMP 97.2–98.7; O2SAT 96–100
[2023-02-26] MEDS ORDERED: POTASSIUM CHL 20MEQ/100ML 100 ML IV ONE (05:30)
[2023-02-26] MEDS: FUROSEMIDE 40 MG TAB PO SCH (05:56)
[2023-02-26] MEDS: ACCU-CHEK COMFORT CURVE STRIP VI SCH ×4 (06:04→21:54)
[2023-02-26] MEDS: InsuLIN REG 1unit/0.01ml Soln (100units/ml) SC SCH ×4 (06:55→21:55)
[2023-02-26 06:57] LABS: Basophils # (auto) 0 10 ^3/uL (0-0.2); Basophils % (auto) 0.4 % (0.0-2.0); Hemoglobin 8.1 g/dL (12.2-16.2); Neutrophils # (auto) 5.3 10 ^3/uL (1.6-8.6); Neutrophils % (auto) 58.8 % (37.0-80.0)
[2023-02-26 06:59] LABS: Eosinophils # (auto) 0.9 10 ^3/uL (0-0.8); Eosinophils % (auto) 9.7 % (0.0-7.0); Hematocrit 24.8 % (36.0-46.0); Lymphocytes # (auto) 1.9 10 ^3/uL (0.4-5.4); Lymphocytes % (auto) 21.2 % (10.0-50.0); Mean Corpuscular Hemoglobin 29.6 pg (28.0-32.0); Mean Corpuscular Hgb Conc. 32.6 g/dL (32.0-36.0); Mean Corpuscular Volume 90.8 fL (80.0-100.0); Monocytes # (auto) 0.9 10 ^3/uL (0-1.3); Monocytes % (auto) 9.9 % (0.0-12.0); Red Blood Cells 2.73 10^6/uL (4.0-5.20); Red Cell Distribution Width 16.5 % (11.8-14.3); White Blood Cell 9.1 10^3/uL (4.4-10.8)
[2023-02-26 07:13] LABS: Alanine Aminotransferase 17 U/L (7-40); Albumin 2.3 g/dL (3.2-4.8); Alkaline Phosphatase 109 U/L (46-116); Anion Gap 6 (5-15); Aspartate Aminotransferase 25 U/L (13-40); Carbon Dioxide 24 mmol/L (20-30); Chloride 114 mmol/L (98-107); Glucose 103 mg/dL (74-106); Sodium 144 mmol/L (136-145)
[2023-02-26 07:14] LABS: % Iron Saturation 24.7 % (15-50); Bilirubin, Total 0.2 mg/dL (0.2-1.0); Total Protein 4.8 g/dL (5.7-8.2)
[2023-02-26 07:26] LABS: BUN/Creatinine Ratio 8.2 (10.0-20.0); Blood Urea Nitrogen < 5 mg/dL (9-23)
[2023-02-26] MEDS ORDERED: POTASSIUM CHLORIDE 20 MEQ, LIDOCAINE 1% (LOCAL ANESTH.) 2 ML in SODIUM CHL 0.9% 100 ML IV ONE (08:15)
[2023-02-26] MEDS: PANTOPRAZOLE 40 MG/10 ML VIAL INJ IV SCH (09:07)
[2023-02-26] MEDS: SODIUM CHLORIDE 0.9% 1,000 ML IV SCH ×2 (09:07→21:55)
[2023-02-26] MEDS: cefTRIAXone 1GM/50ML D5W 50 ML IV SCH (09:08)
[2023-02-26] MEDS: MIDODRINE HCL 10 MG TAB PO SCH ×2 (09:08→21:58)
[2023-02-26] MEDS: ASPirin-EC 81 mg tab PO SCH (09:08)
[2023-02-26] MEDS: DOXYCYCLINE 100 MG TAB/CAP PO SCH ×2 (09:08→21:51)
[2023-02-26] MEDS: APIXABAN 5 MG TAB PO SCH ×2 (09:08→21:55)
[2023-02-26] MEDS: MEMANTINE HYDROCHLORIDE PO SCH ×2 (09:25→21:58)
[2023-02-27] VITALS (7 sets, daily range): BP systolic 107–145; BP diastolic 69–80; PULSE 85–108; RESP 17–20; TEMP 97.8–99.1; O2SAT 92–99
[2023-02-27] MEDS: ACCU-CHEK COMFORT CURVE STRIP VI SCH ×4 (06:13→21:29)
[2023-02-27] MEDS: FUROSEMIDE 40 MG TAB PO SCH (06:13)
[2023-02-27] MEDS: InsuLIN REG 1unit/0.01ml Soln (100units/ml) SC SCH ×4 (06:16→21:29)
[2023-02-27] MEDS: MEMANTINE HYDROCHLORIDE PO SCH ×2 (09:19→22:00)
[2023-02-27] MEDS: cefTRIAXone 1GM/50ML D5W 50 ML IV SCH (09:19)
[2023-02-27] MEDS: PANTOPRAZOLE 40 MG/10 ML VIAL INJ IV SCH (09:19)
[2023-02-27] MEDS: DOXYCYCLINE 100 MG TAB/CAP PO SCH ×2 (09:20→21:29)
[2023-02-27] MEDS: SODIUM CHLORIDE 0.9% 1,000 ML IV SCH (09:20)
[2023-02-27] MEDS: APIXABAN 5 MG TAB PO SCH ×2 (09:20→21:29)
[2023-02-27] MEDS: ASPirin-EC 81 mg tab PO SCH (09:20)
[2023-02-27] MEDS: MIDODRINE HCL 10 MG TAB PO SCH ×2 (09:20→22:00)
[2023-02-28] VITALS (7 sets, daily range): BP systolic 98–134; BP diastolic 52–73; PULSE 80–98; RESP 17–25; TEMP 97.6–98.3; O2SAT 96–100
[2023-02-28] MEDS: SODIUM CHLORIDE 0.9% 1,000 ML IV SCH ×2 (00:05→00:58)
[2023-02-28] MEDS: ACCU-CHEK COMFORT CURVE STRIP VI SCH ×4 (05:33→21:21)
[2023-02-28] MEDS: InsuLIN REG 1unit/0.01ml Soln (100units/ml) SC SCH ×4 (05:33→21:22)
[2023-02-28] MEDS: FUROSEMIDE 40 MG TAB PO SCH (05:33)
[2023-02-28 07:03] LABS: INR 1.3 (0.9-1.15); Prothrombin Time 13.4 sec (9.3-11.8)
[2023-02-28] MEDS ORDERED: ceFAZolin 2 GM/D5W100ml 100 ML IV ONE (07:36)
[2023-02-28] MEDS ORDERED: LIDOCAINE 2% (LOCAL ANESTH.) PF 5ml SDV ONE (07:38)
[2023-02-28] MEDS ORDERED: PROPOFOL 10 MG/ML 20 ML IV ONE (07:38)
[2023-02-28] MEDS ORDERED: ONDANSETRON HCL 4 MG/2 ML VIAL ONE (07:38)
[2023-02-28] MEDS ORDERED: KETOROLAC TROMETH 30 MG/ML 1ML VIAL ONE (07:38)
[2023-02-28] MEDS ORDERED: GLYCOPYRROLATE 0.2 MG/ML 1ML VIAL ONE (07:38)
[2023-02-28] MEDS ORDERED: DexAMETHasone SOD PHOS 10MG/1ML VIAL INJ ONE (07:38)
[2023-02-28] MEDS ORDERED: hydrALAZINE HCL 20 MG/ML VL IV PRN (09:45)
[2023-02-28] MEDS ORDERED: LABETALOL HCL 5 MG/ML 4ML SYRINGE IV PRN (09:45)
[2023-02-28] MEDS ORDERED: ONDANSETRON HCL 4 MG/2 ML VIAL IV PRN (09:45)
[2023-02-28] MEDS ORDERED: HYDROmorphone HCL 2 MG/ML VL/or syr IV PRN (09:45)
[2023-02-28] MEDS ORDERED: NALOXONE HCL 0.4 MG/ML VIAL IV PRN (09:45)
[2023-02-28] MEDS ORDERED: FLUMAZENIL 0.1 MG/ML INJ 10ML MDV IV PRN (09:45)
[2023-02-28] MEDS ORDERED: fentaNYL CITRATE 100 MCG/2 ML VL IV PRN (09:45)
[2023-02-28] MEDS ORDERED: ePHEDrine SULFATE 50 MG/ML AMP IV PRN (09:45)
[2023-02-28] MEDS: ASPirin-EC 81 mg tab PO SCH (10:00)
[2023-02-28] MEDS: MEMANTINE HYDROCHLORIDE PO SCH ×2 (10:00→21:22)
[2023-02-28] MEDS: APIXABAN 5 MG TAB PO SCH ×3 (10:00→22:00)
[2023-02-28] MEDS: MIDODRINE HCL 10 MG TAB PO SCH ×3 (10:35→22:00)
[2023-02-28] MEDS: DOXYCYCLINE 100 MG TAB/CAP PO SCH ×3 (10:35→22:00)
[2023-02-28] MEDS: PANTOPRAZOLE 40 MG/10 ML VIAL INJ IV SCH (11:47)
[2023-02-28] MEDS: cefTRIAXone 1GM/50ML D5W 50 ML IV SCH (11:47)
[2023-02-28 14:32] LABS: Alanine Aminotransferase 21 U/L (7-40); Albumin 2.4 g/dL (3.2-4.8); Alkaline Phosphatase 116 U/L (46-116); Anion Gap 6 (5-15); Aspartate Aminotransferase 28 U/L (13-40); Calcium 8.4 mg/dL (8.7-10.4); Carbon Dioxide 25 mmol/L (20-30); Chloride 113 mmol/L (98-107); Glucose 83 mg/dL (74-106); Magnesium 1.3 mg/dL (1.6-2.6); Potassium 3.2 mmol/L (3.5-5.1); Sodium 144 mmol/L (136-145)
[2023-02-28 14:33] LABS: Bilirubin, Total 0.2 mg/dL (0.2-1.0); Phosphorus 1.8 mg/dL (2.4-5.1); Total Protein 4.9 g/dL (5.7-8.2)
[2023-02-28 14:36] LABS: BUN/Creatinine Ratio 8.6 (10.0-20.0); Blood Urea Nitrogen < 5 mg/dL (9-23)
[2023-02-28 14:51] LABS: Basophils # (auto) 0.1 10 ^3/uL (0-0.2); Hemoglobin 8.2 g/dL (12.2-16.2); Lymphocytes % (auto) 24.7 % (10.0-50.0); Neutrophils # (auto) 4.4 10 ^3/uL (1.6-8.6); Nucleated Red Blood Cells % 1.2 %
[2023-02-28 14:53] LABS: Basophils % (auto) 1.2 % (0.0-2.0); Eosinophils # (auto) 0.6 10 ^3/uL (0-0.8); Hematocrit 25.1 % (36.0-46.0); Mean Corpuscular Hemoglobin 29.9 pg (28.0-32.0); Mean Corpuscular Hgb Conc. 32.6 g/dL (32.0-36.0); Mean Corpuscular Volume 91.7 fL (80.0-100.0); Monocytes # (auto) 0.9 10 ^3/uL (0-1.3); Monocytes % (auto) 10.7 % (0.0-12.0); Neutrophils % (auto) 55.4 % (37.0-80.0); Red Blood Cells 2.74 10^6/uL (4.0-5.20); Red Cell Distribution Width 17.1 % (11.8-14.3)
[2023-02-28] MEDS ORDERED: POTASSIUM CHL 20 Meq TABLET PO ONE (15:30)
[2023-02-28] MEDS ORDERED: POTASSIUM PHOSPHATE 44 MEQ in D5W 5% 250 ML IV ONE (15:30)
[2023-02-28] MEDS: MAGNESIUM SULFATE 1GM/100ML 100 ML IV SCH ×4 (16:08→19:03)
[2023-02-28] MEDS ORDERED: KETAMINE 50mg/ML 10ml Vial (500mg/10ml) IV ONE (20:39)
[2023-02-28] MEDS ORDERED: PHENYLEPHRINE HCL 10 MG/ML VL IV ONE (20:39)
[2023-03-01] VITALS (7 sets, daily range): BP systolic 93–124; BP diastolic 37–72; PULSE 65–78; RESP 16–18; TEMP 97.4–98.4; O2SAT 96–100
[2023-03-01] MEDS: SODIUM CHLORIDE 0.9% 1,000 ML IV SCH ×2 (02:45→09:45)
[2023-03-01] MEDS: ACCU-CHEK COMFORT CURVE STRIP VI SCH ×4 (06:05→21:17)
[2023-03-01] MEDS: FUROSEMIDE 40 MG TAB PO SCH (06:08)
[2023-03-01] MEDS: InsuLIN REG 1unit/0.01ml Soln (100units/ml) SC SCH ×4 (06:24→21:17)
[2023-03-01] MEDS: cefTRIAXone 1GM/50ML D5W 50 ML IV SCH (09:44)
[2023-03-01] MEDS: MIDODRINE HCL 10 MG TAB PO SCH ×2 (09:44→17:43)
[2023-03-01] MEDS: APIXABAN 5 MG TAB PO SCH ×2 (09:44→21:16)
[2023-03-01] MEDS: DOXYCYCLINE 100 MG TAB/CAP PO SCH ×2 (09:44→21:17)
[2023-03-01] MEDS: PANTOPRAZOLE 40 MG/10 ML VIAL INJ IV SCH (09:44)
[2023-03-01] MEDS: ASPirin-EC 81 mg tab PO SCH (09:44)
[2023-03-01] MEDS: MEMANTINE HYDROCHLORIDE PO SCH ×2 (09:45→21:17)
[2023-03-01] MEDS ORDERED: MIDODRINE HCL 10 MG TAB PO ONE (13:15)
[2023-03-01] MEDS ORDERED: MIDODRINE HCL 10 MG TAB ONE (14:06)
[2023-03-01 15:10] LABS: Alanine Aminotransferase 16 U/L (7-40); Albumin 2.5 g/dL (3.2-4.8); Alkaline Phosphatase 111 U/L (46-116); Anion Gap 6 (5-15); Aspartate Aminotransferase 21 U/L (13-40); Bilirubin, Total 0.2 mg/dL (0.2-1.0); Calcium 8.2 mg/dL (8.7-10.4); Carbon Dioxide 23 mmol/L (20-30); Chloride 112 mmol/L (98-107); Glucose 134 mg/dL (74-106); Magnesium 1.9 mg/dL (1.6-2.6); Phosphorus 3.6 mg/dL (2.4-5.1); Sodium 141 mmol/L (136-145); Total Protein 5.2 g/dL (5.7-8.2)
[2023-03-01 15:17] LABS: BUN/Creatinine Ratio 5.8 (10.0-20.0); Blood Urea Nitrogen < 5 mg/dL (9-23)
[2023-03-01] MEDS ORDERED: MID10T PO ×2 (15:49→16:59)
[2023-03-01] MEDS ORDERED: DOXY-447 PO (15:49)
[2023-03-01] MEDS ORDERED: HYDR1TAB97 PO (16:59)
[2023-03-01] MEDS ORDERED: SENN1TAB14 PO (16:59)
[2023-03-01] MEDS ORDERED: DICL1GEL73 TD (16:59)
[2023-03-02 05:00] VITALS: BP 117/64; PULSE 82; RESP 18; O2SAT 93
[2023-03-02] MEDS: SODIUM CHLORIDE 0.9% 1,000 ML IV SCH ×2 (05:25→17:11)
[2023-03-02] MEDS: FUROSEMIDE 40 MG TAB PO SCH (05:51)
[2023-03-02] MEDS: MIDODRINE HCL 10 MG TAB PO SCH ×2 (05:51→17:10)
[2023-03-02] MEDS: InsuLIN REG 1unit/0.01ml Soln (100units/ml) SC SCH ×3 (05:53→17:00)
[2023-03-02] MEDS: ACCU-CHEK COMFORT CURVE STRIP VI SCH ×3 (05:53→17:09)
[2023-03-02 08:00] VITALS: PULSE 74; PULSE 77; RESP 18
[2023-03-02 08:42] VITALS: BP 96/35; PULSE 74; RESP 16; TEMP 97.6; O2SAT 97
[2023-03-02] MEDS: cefTRIAXone 1GM/50ML D5W 50 ML IV SCH (09:16)
[2023-03-02] MEDS: PANTOPRAZOLE 40 MG/10 ML VIAL INJ IV SCH (09:16)
[2023-03-02] MEDS: DOXYCYCLINE 100 MG TAB/CAP PO SCH (09:16)
[2023-03-02] MEDS: ASPirin-EC 81 mg tab PO SCH (09:16)
[2023-03-02] MEDS: APIXABAN 5 MG TAB PO SCH (09:16)
[2023-03-02] MEDS: MEMANTINE HYDROCHLORIDE PO SCH (10:00)
[2023-03-02 11:18] VITALS: BP 96/54; PULSE 74; RESP 18; TEMP 97.6; O2SAT 97
[2023-03-02 13:00] VITALS: BP 114/62; PULSE 55; RESP 18; TEMP 98.5; O2SAT 96
[2023-03-02 16:48] VITALS: BP 157/52; PULSE 68; RESP 16; TEMP 97.4; O2SAT 97
[2023-03-03] MEDS ORDERED: PATIENTS OWN MEDICATION (ertapenem 1 GM) IV SCH (10:00)
[2023-03-03] MEDS ORDERED: ERTAPENEM SOD INJ 1 GM in SODIUM CHL 0.9% 50 ML IV SCH (10:00)
== END 2023-03-02 20:40 | disposition home health service (06) | DRG 853 ==
LOC: EDBD 12:44 → ER 12:44 → SUATTDRO 18:43 → TELE 18:50 → TELE-EAST 02-21 15:39
PROVIDERS: ADMIT Nurse Practitioner; ATTEND Nurse Practitioner
PROC: 0HRMXK3 Replacement of Right Foot Skin with Nonautologous Tissue Substitute, Full Thickness, External Approach (ICD-10-PCS; principal; 2023-02-28 08:55)
DX: A41.9 Sepsis, unspecified organism (principal); G93.41 Metabolic encephalopathy; R65.21 Severe sepsis with septic shock; J98.11 Atelectasis; I50.32 Chronic diastolic (congestive) heart failure; N39.0 Urinary tract infection, site not specified; I13.0 Hypertensive heart and chronic kidney disease with heart failure and stage 1 through stage 4 chronic kidney disease, or unspecified chronic kidney disease; Z68.42 Body mass index [BMI] 45.0-49.9, adult; L97.318 Non-pressure chronic ulcer of right ankle with other specified severity; D64.9 Anemia, unspecified; K76.0 Fatty (change of) liver, not elsewhere classified; G30.9 Alzheimer's disease, unspecified; K21.9 Gastro-esophageal reflux disease without esophagitis; I25.10 Atherosclerotic heart disease of native coronary artery without angina pectoris; E11.65 Type 2 diabetes mellitus with hyperglycemia; E66.9 Obesity, unspecified; F02.80 Dementia in other diseases classified elsewhere, unspecified severity, without behavioral disturbance, psychotic disturbance, mood disturbance, and anxiety; E78.5 Hyperlipidemia, unspecified; E11.22 Type 2 diabetes mellitus with diabetic chronic kidney disease; E11.51 Type 2 diabetes mellitus with diabetic peripheral angiopathy without gangrene; F17.200 Nicotine dependence, unspecified, uncomplicated; N18.9 Chronic kidney disease, unspecified; Z74.01 Bed confinement status; Z79.899 Other long term (current) drug therapy; Z86.711 Personal history of pulmonary embolism
CPT/HCPCS: 36415; 71045; 71275; 80053; 80202; 81001; 82565; 82962; 83540; 83550; 83605; 83735; 83880; 84100; 84484; 85025; 85379; 85610; 85730; 87040; 87070; 87075; 87077; 87081; 87186; 87205; 93005; 93306; 95819; 97110; 97163; 97530; C9113; G0378; J0696; J1100; J1815; J1885; J2001; J2405; J2543; J2704; J3480; J7060

== ENCOUNTER 2023-07-12 14:13 | Inpatient (IN) | payer MEDICARE, MEDICAID ==
[~2023-07-12] VITALS: Ht 157.5 cm; Wt 97.0 kg
[~2023-07-12 14:13] MED LIST changes: +ATOR10TA PO; -CLOP75TA28 PO; +DICL1GEL73 TD; -FLUC200T50 PO; -FURO20TA3 PO; -LINE1TAB6 PO; +LISI10TA34 PO; +MID10T PO; -MIDO5TAB4 PO; -POTA-180 PO; +POTA8TAB38 PO; +SENN1TAB14 PO; -SENN8.6C PO; +TIMO0.5S28 EACHEYE; -TIMO0.5S66 EACHEYE
[2023-07-12 15:26] LABS: Basophils # (auto) 0 10 ^3/uL (0-0.2); Basophils % (auto) 0.3 % (0.0-2.0); Eosinophils # (auto) 0.1 10 ^3/uL (0-0.8); Eosinophils % (auto) 0.6 % (0.0-7.0); Hematocrit 39.9 % (36.0-46.0); Hemoglobin 12.5 g/dL (12.2-16.2); Lymphocytes # (auto) 2.2 10 ^3/uL (0.4-5.4); Lymphocytes % (auto) 15.6 % (10.0-50.0); Mean Corpuscular Hgb Conc. 31.3 g/dL (32.0-36.0); Mean Corpuscular Volume 89.2 fL (80.0-100.0); Monocytes % (auto) 7.1 % (0.0-12.0); Neutrophils # (auto) 10.6 10 ^3/uL (1.6-8.6); Neutrophils % (auto) 76.4 % (37.0-80.0); Red Blood Cells 4.47 10^6/uL (4.0-5.20); White Blood Cell 13.9 10^3/uL (4.4-10.8)
[2023-07-12 15:58] LABS: Alanine Aminotransferase 13 U/L (7-40); Alkaline Phosphatase 85 U/L (46-116); Carbon Dioxide 23 mmol/L (20-30); Chloride 100 mmol/L (98-107)
[2023-07-12 15:59] LABS: Albumin 3.6 g/dL (3.2-4.8); Anion Gap 11 (5-15); Aspartate Aminotransferase 14 U/L (13-40); BUN/Creatinine Ratio 14.4 (10.0-20.0); Bilirubin, Total 0.4 mg/dL (0.2-1.0); Blood Urea Nitrogen 13 mg/dL (9-23); Glucose 152 mg/dL (74-106); Sodium 134 mmol/L (136-145); Total Protein 6.8 g/dL (5.7-8.2)
[2023-07-12 16:12] LABS: Urine Bacteria None Seen /hpf (None Seen)
[2023-07-12 16:16] LABS: Lactic Acid w/Reflex 2.7 mmol/L (0.4-2.0)
[2023-07-12 16:28] LABS: Urine Blood TRACE /uL (Negative); Urine Clarity Clear (Clear); Urine Color Light-Yellow (Yellow); Urine Hyaline Cast FEW /lpf (0 - 2); Urine Mucus FEW (None Seen); Urine Protein, UAD Negative (Negative); Urine Specific Gravity 1.012 (1.001-1.035); Urine Urobilinogen Normal (Negative); Urine WBC 1 /hpf (0 - 5)
[2023-07-12] MEDS: SODIUM CHLORIDE 0.9% 1,000 ML IV ONE ×3 (16:33→17:31)
[2023-07-12] MEDS: ACETAMINOPHEN IV 1000 MG/100ML (10MG/ML) IV ONE (16:37)
[2023-07-12] MEDS: cefTRIAXone 1GM/50ML D5W 50 ML IV ONE (16:41)
[2023-07-12 16:47] VITALS: PULSE 101; RESP 16; O2SAT 96
[2023-07-12] MEDS ORDERED: ACETAMINOPHEN 325 MG TAB PO PRN (17:00)
[2023-07-12] MEDS ORDERED: MORPHINE SULFATE INJ 2 MG/ml SYRG IV PRN (17:00)
[2023-07-12] MEDS ORDERED: NITROGLYCERIN 0.4 MG SL TAB SL PRN (17:00)
[2023-07-12] MEDS ORDERED: ONDANSETRON HCL 4 MG/2 ML VIAL IV PRN (17:00)
[2023-07-12] MEDS ORDERED: ALBUTEROL SULF 2.5 MG/0.5ML(0.5%) NEB SOLN NEB PRN (17:15)
[2023-07-12] MEDS ORDERED: hydrALAZINE HCL 20 MG/ML VL IV PRN (17:15)
[2023-07-12] MEDS: AZITHROMYCIN 500MG/ 250ML 250 ML IV ONE (17:16)
[2023-07-12 19:30] VITALS: PULSE 92; RESP 17; O2SAT 100
[2023-07-12 20:24] VITALS: BP 135/92; PULSE 92; RESP 20; O2SAT 100
[2023-07-12] MEDS: ATORVASTATIN 20 MG TAB PO SCH (20:44)
[2023-07-12] MEDS: MEMANTINE HCL 5 MG TAB PO SCH (22:05)
[2023-07-12] MEDS: POTASSIUM CHLORIDE 8 MEQ TAB PO SCH (22:05)
[2023-07-13] VITALS (12 sets, daily range): BP systolic 93–120; BP diastolic 42–70; PULSE 70–92; RESP 12–20; TEMP 97.7–99.1; O2SAT 94–99
[2023-07-13 05:34] LABS: Basophils # (auto) 0.1 10 ^3/uL (0-0.2); Basophils % (auto) 0.4 % (0.0-2.0); Eosinophils # (auto) 0.3 10 ^3/uL (0-0.8); Eosinophils % (auto) 2.4 % (0.0-7.0); Hematocrit 38.4 % (36.0-46.0); Hemoglobin 12.2 g/dL (12.2-16.2); Lymphocytes # (auto) 1.5 10 ^3/uL (0.4-5.4); Lymphocytes % (auto) 13.4 % (10.0-50.0); Mean Corpuscular Hemoglobin 28.2 pg (28.0-32.0); Mean Corpuscular Hgb Conc. 31.8 g/dL (32.0-36.0); Mean Corpuscular Volume 88.7 fL (80.0-100.0); Monocytes # (auto) 1.4 10 ^3/uL (0-1.3); Monocytes % (auto) 11.9 % (0.0-12.0); Neutrophils # (auto) 8.2 10 ^3/uL (1.6-8.6); Neutrophils % (auto) 71.9 % (37.0-80.0); Nucleated Red Blood Cells % 0.1 %; Red Blood Cells 4.33 10^6/uL (4.0-5.20); Red Cell Distribution Width 14.8 % (11.8-14.3); White Blood Cell 11.4 10^3/uL (4.4-10.8)
[2023-07-13 05:43] LABS: Albumin 3.6 g/dL (3.2-4.8); Alkaline Phosphatase 75 U/L (46-116); Anion Gap 10 (5-15); Aspartate Aminotransferase 13 U/L (13-40); BUN/Creatinine Ratio 11.6 (10.0-20.0); Bilirubin, Total 0.6 mg/dL (0.2-1.0); Blood Urea Nitrogen 10 mg/dL (9-23); Calcium 10.3 mg/dL (8.7-10.4); Carbon Dioxide 25 mmol/L (20-30); Chloride 102 mmol/L (98-107); Glucose 113 mg/dL (74-106); Sodium 137 mmol/L (136-145); Total Protein 6.7 g/dL (5.7-8.2)
[2023-07-13 05:44] LABS: Alanine Aminotransferase < 9 U/L (7-40)
[2023-07-13] MEDS: FUROSEMIDE 40 MG TAB PO SCH (06:02)
[2023-07-13] MEDS: OMEPRAZOLE 20 MG PO SCH (10:00)
[2023-07-13] MEDS: TIMOLOL MAL 0.5% OPTH(EYE) SOL 5ML EACHEYE SCH (10:00)
[2023-07-13] MEDS: LISINOPRIL 5 MG TAB PO SCH (11:03)
[2023-07-13] MEDS: ASPirin-EC 81 mg tab PO SCH (11:03)
[2023-07-13] MEDS: SENNA 8.6 MG TAB PO SCH (11:03)
[2023-07-13] MEDS: cefTRIAXone 1GM/50ML D5W 50 ML IV SCH (11:03)
[2023-07-13] MEDS ORDERED: VANCOMYCIN PER PHARMACY 0 MG IV SCH (15:00)
[2023-07-13] MEDS: VANCOMYCIN 1GM/200ML 200 ML IV ONE (16:24)
[2023-07-14] VITALS (13 sets, daily range): BP systolic 85–111; BP diastolic 42–59; PULSE 70–87; RESP 16–20; TEMP 97.9–99.4; O2SAT 94–100
[2023-07-14 05:39] LABS: Triglycerides 110 mg/dL (< 150)
[2023-07-14 05:41] LABS: Cholesterol 154 mg/dL (< 200); HDL Cholesterol 48 mg/dL (40-59)
[2023-07-14 05:48] LABS: LDL Cholesterol 82 mg/dL (< 100)
[2023-07-14 07:27] LABS: Basophils # (auto) 0 10 ^3/uL (0-0.2); Basophils % (auto) 0.4 % (0.0-2.0); Eosinophils # (auto) 0.5 10 ^3/uL (0-0.8); Eosinophils % (auto) 4.1 % (0.0-7.0); Hematocrit 33.6 % (36.0-46.0); Hemoglobin 10.6 g/dL (12.2-16.2); Lymphocytes # (auto) 1.9 10 ^3/uL (0.4-5.4); Lymphocytes % (auto) 15.4 % (10.0-50.0); Mean Corpuscular Hemoglobin 27.5 pg (28.0-32.0); Mean Corpuscular Hgb Conc. 31.4 g/dL (32.0-36.0); Mean Corpuscular Volume 87.7 fL (80.0-100.0); Monocytes % (auto) 8.1 % (0.0-12.0); Neutrophils # (auto) 8.9 10 ^3/uL (1.6-8.6); Red Blood Cells 3.83 10^6/uL (4.0-5.20); Red Cell Distribution Width 14.8 % (11.8-14.3); White Blood Cell 12.4 10^3/uL (4.4-10.8)
[2023-07-14 07:40] LABS: Chloride 105 mmol/L (98-107); Sodium 135 mmol/L (136-145)
[2023-07-14 07:41] LABS: Anion Gap 6 (5-15); Carbon Dioxide 24 mmol/L (20-30)
[2023-07-14 07:46] LABS: BUN/Creatinine Ratio 13.2 (10.0-20.0); Blood Urea Nitrogen 16 mg/dL (9-23); Glucose 119 mg/dL (74-106)
[2023-07-14] MEDS: VANCOMYCIN 1GM/200ML 200 ML IV SCH (11:00)
[2023-07-14] MEDS: ALBUMIN 25% 100 ML IV SCH (12:15)
[2023-07-14] MEDS: MIDODRINE HCL 10 MG TAB PO SCH (21:27)
[2023-07-15] VITALS (11 sets, daily range): BP systolic 107–143; BP diastolic 58–71; PULSE 71–84; RESP 14–18; TEMP 98.1–98.6; O2SAT 95–99
[2023-07-15] MEDS: VANCOMYCIN 1GM/200ML 200 ML IV SCH (20:15)
[2023-07-16] VITALS (12 sets, daily range): BP systolic 97–149; BP diastolic 42–69; PULSE 58–71; RESP 16–20; TEMP 97.9–98.3; O2SAT 94–100
[2023-07-16 10:16] LABS: Basophils # (auto) 0 10 ^3/uL (0-0.2); Basophils % (auto) 0.4 % (0.0-2.0); Eosinophils # (auto) 0.5 10 ^3/uL (0-0.8); Eosinophils % (auto) 5.5 % (0.0-7.0); Hematocrit 33.5 % (36.0-46.0); Hemoglobin 10.7 g/dL (12.2-16.2); Lymphocytes # (auto) 2.1 10 ^3/uL (0.4-5.4); Lymphocytes % (auto) 23.6 % (10.0-50.0); Mean Corpuscular Hemoglobin 28.2 pg (28.0-32.0); Mean Corpuscular Volume 88.1 fL (80.0-100.0); Monocytes # (auto) 0.6 10 ^3/uL (0-1.3); Monocytes % (auto) 6.5 % (0.0-12.0); Neutrophils # (auto) 5.7 10 ^3/uL (1.6-8.6); Red Cell Distribution Width 14.1 % (11.8-14.3)
[2023-07-16 10:35] LABS: Albumin 3.9 g/dL (3.2-4.8); Alkaline Phosphatase 74 U/L (46-116); Anion Gap 6 (5-15); Aspartate Aminotransferase 15 U/L (13-40); BUN/Creatinine Ratio 16.9 (10.0-20.0); Bilirubin, Total 0.3 mg/dL (0.2-1.0); Blood Urea Nitrogen 13 mg/dL (9-23); Calcium 11.1 mg/dL (8.5-10.1); Carbon Dioxide 27 mmol/L (20-30); Chloride 107 mmol/L (98-107); Glucose 150 mg/dL (74-106); Potassium 4.5 mmol/L (3.5-5.1); Sodium 140 mmol/L (136-145); Total Protein 6.9 g/dL (5.7-8.2)
[2023-07-16 11:27] LABS: Alanine Aminotransferase 9 U/L (7-40)
[2023-07-16] MEDS: ERTAPENEM SOD INJ 1 GM in SODIUM CHL 0.9% 50 ML IV SCH (22:00)
[2023-07-17] VITALS (12 sets, daily range): BP systolic 97–126; BP diastolic 46–103; PULSE 57–72; RESP 18–22; TEMP 97.9–98.4; O2SAT 91–100
[2023-07-18] VITALS (9 sets, daily range): BP systolic 94–112; BP diastolic 45–71; PULSE 61–76; RESP 18–20; TEMP 97.8–99.6; O2SAT 92–100
[2023-07-18] MEDS: VANCOMYCIN 1GM/200ML 200 ML IV SCH (09:00)
[2023-07-18] MEDS ORDERED: LINE1TAB6 PO (11:35)
[2023-07-18] MEDS ORDERED: CIPR-173 PO (11:35)
[2023-07-18] MEDS ORDERED: VANCOMYCIN 1GM/200ML 200 ML IV SCH (14:00)
[2023-07-18] MEDS: VANCOMYCIN 500 MG in D5W 5% 100 ML IV SCH (18:00)
== END 2023-07-18 18:05 | disposition home health service (06) | DRG 314 ==
LOC: EDUNIT# 14:13 → EDBD 14:13 → ER 14:13 → TELE 16:58 → TELE-EAST 07-13 09:32 → EAST 07-18 01:59
PROVIDERS: ADMIT Nurse Practitioner; ATTEND Nurse Practitioner
DX: T80.211A Bloodstream infection due to central venous catheter, initial encounter (principal); A41.02 Sepsis due to Methicillin resistant Staphylococcus aureus; G93.41 Metabolic encephalopathy; I13.0 Hypertensive heart and chronic kidney disease with heart failure and stage 1 through stage 4 chronic kidney disease, or unspecified chronic kidney disease; I50.32 Chronic diastolic (congestive) heart failure; I16.0 Hypertensive urgency; K21.9 Gastro-esophageal reflux disease without esophagitis; I25.10 Atherosclerotic heart disease of native coronary artery without angina pectoris; E78.00 Pure hypercholesterolemia, unspecified; I34.0 Nonrheumatic mitral (valve) insufficiency; H40.89 Other specified glaucoma; E11.22 Type 2 diabetes mellitus with diabetic chronic kidney disease; F17.200 Nicotine dependence, unspecified, uncomplicated; F03.90 Unspecified dementia, unspecified severity, without behavioral disturbance, psychotic disturbance, mood disturbance, and anxiety; I34.81 Nonrheumatic mitral (valve) annulus calcification; N18.9 Chronic kidney disease, unspecified; Z74.01 Bed confinement status; Z79.899 Other long term (current) drug therapy; Z79.82 Long term (current) use of aspirin; Z79.01 Long term (current) use of anticoagulants; Z82.49 Family history of ischemic heart disease and other diseases of the circulatory system; Z86.718 Personal history of other venous thrombosis and embolism; Z86.711 Personal history of pulmonary embolism; Z81.8 Family history of other mental and behavioral disorders; Z83.3 Family history of diabetes mellitus; Z82.3 Family history of stroke; Z86.73 Personal history of transient ischemic attack (TIA), and cerebral infarction without residual deficits
CPT/HCPCS: 36415; 70450; 71045; 80048; 80053; 80061; 80202; 81001; 82565; 83605; 85025; 87040; 87077; 87086; 87186; 87205; 93005; 93306; 96365; 97163; G0378; J0131; J1335; J7060; P9047